=== PATIENT | female | born 1935 | race Caucasian/White ===

== ENCOUNTER 2017-07-08 20:27 | Inpatient (IN) | payer MEDICARE, MEDICAID ==
[~2017-07-08] VITALS: Ht 157.5 cm; Wt 80.3 kg
[2017-07-08] MEDS ORDERED: PREDNISOLO15 MG/5 M1 ORAL (21:01)
[2017-07-08] MEDS ORDERED: JANUVIA25 MG ORAL (21:01)
[2017-07-08] MEDS ORDERED: TAMSULOSIN HCL0.4 MG ORAL (21:01)
[2017-07-08] MEDS ORDERED: TRESIBA FL100 UNIT/1 SQ (21:01)
[2017-07-08] MEDS ORDERED: ALBUTEROL2.5 MG/3 M INH (21:01)
[2017-07-08] MEDS ORDERED: HUMALOG100 UNIT/4 SUBQ (21:01)
[2017-07-08] MEDS ORDERED: BREO ELLIPTA 11 EACH IH (21:01)
[2017-07-08] MEDS ORDERED: CRESTOR20 MG ORAL (21:01)
[2017-07-08] MEDS ORDERED: TORSEMIDE20 MG ORAL (21:01)
[2017-07-08] MEDS ORDERED: SPIRIVA18 MCG INH (21:01)
[2017-07-08] MEDS ORDERED: ELIQUIS2.5 MG PO (21:01)
[2017-07-08] MEDS ORDERED: FOLIC ACID1 MG ORAL (21:01)
--- NOTE | 2017-07-08 21:26 | Emergency Room Report ---
History of Present Illness General Chief Complaint: Generalized Weakness Source: Patient, Family Member Present Illness HPI 82-year-old female history of COPD on 2 L nasal cannula oxygen, diabetes, lower extremity edema that is chronic, presenting with generalized weakness, worsening lower extremity edema, and decrease in appetite. Patient currently oriented 2 and providing some history states that she just does not have an appetite. Denies any worsening shortness of breath and her normal. States her legs have been swollen for a couple months. Denies any fever chills cough no abdominal pain or chest pain Allergies: Coded Allergies: No Known Allergies (Unverified , 07/08/17) Patient History Past Medical History: see triage record Past Surgical History: none Pertinent Family History: none Reviewed Nursing Documentation: PMH: Agreed; PSxH: Agreed Nursing Documentation-PMH Past Medical History: No History, Except For Hx Cardiac Problems: Yes - AT HOME 2l OXYGEN THERAPY Hx Hypertension: Yes Hx COPD: Yes Hx Diabetes: Yes - type 1 Review of Systems All Other Systems: negative except mentioned in HPI Physical Exam Vital Signs Date Time Temp Pulse Resp B/P (MAP) Pulse Ox O2 Delivery O2 Flow Rate FiO2 07/08/17 20:17 98.9 86 16 128/78 94 Nasal Cannula 2.0 99.0 Sp02 EP Interpretation: abnormal General Appearance: mild distress, other - Elderly female, calm and cooperative , conversing appropriately Head: normocephalic, atraumatic Eyes: bilateral eye normal inspection, bilateral eye PERRL, bilateral eye EOMI ENT: normal ENT inspection, normal pharynx, normal voice, moist mucus membranes Neck: normal inspection, full range of motion, supple Respiratory: normal inspection, lungs clear, normal breath sounds, no respiratory distress, no retraction, no wheezing, speaking full sentences, chest symmetrical Cardiovascular #1: normal inspection, regular rate, rhythm, normal capillary refill Cardiovascular #2: 2+ radial (R), 2+ radial (L) Gastrointestinal: normal inspection, non tender, soft, non-distended, no guarding Musculoskeletal: other - No signs of trauma, 2+ pitting edema bilateral lower extremity's, nontender Neurologic: other - Patient is oriented 2 and speaking complete sentences, moving all 4 extremities spontaneously Psychiatric: normal inspection, judgement/insight normal, memory normal Skin: normal inspection, normal color, no rash, warm/dry, well hydrated, normal turgor Medical Decision Making Diagnostic Impression: Primary Impression: Episode of generalized weakness Additional Impressions: Renal failure Troponin level elevated ER Course 82-year-old female with generalized weakness, decrease in appetite DDX: Dehydration, electronic disturbance, pneumonia, UTI, viral illness, ACS Plan: Obtain labs, ua, EKG, CXR ER course: Patient has been monitored during ED stay, HD stable Disposition: Patient is to be admitted to TELE D/W hospitalist Dr Nury celis for Dr Ryan Please note that this Emergency Department Report was dictated using [employer] consultant technology software, occasionally this can lead to erroneous entry secondary to interpretation by the dictation equipment. EKG Diagnostic Results EP Interpretation: Yes Rate: normal Rhythm: NSR ST Segments: No acute changes ASA given to patient: No Rhythm Strip EP Interpretation: Yes Rate: 84 Rhythm: NSR, no PVCs, no ectopy Chest X-ray CXR: Ordered: Yes 1 view Indication: Generalized weakness EP interpretation: Yes Interpretation: mild congestion Impression: mild congestion Electronically signed by Oswald Rader MD Laboratory Tests Test 07/08/17 21:00 White Blood Count 10.5 K/UL (4.8-10.8) Red Blood Count 3.46 M/UL (4.20-5.40) L Hemoglobin 11.0 G/DL (12.0-16.0) L Hematocrit 33.4 % (37.0-47.0) L Mean Corpuscular Volume 96 FL (80-99) Mean Corpuscular Hemoglobin 31.8 PG (27.0-31.0) H Mean Corpuscular Hemoglobin Concent 33.0 G/DL (32.0-36.0) Red Cell Distribution Width 13.2 % (11.6-14.8) Platelet Count 196 K/UL (150-450) Mean Platelet Volume 7.1 FL (6.5-10.1) Neutrophils (%) (Auto) 80.0 % (45.0-75.0) H Lymphocytes (%) (Auto) 10.0 % (20.0-45.0) L Monocytes (%) (Auto) 8.6 % (1.0-10.0) Eosinophils (%) (Auto) 0.9 % (0.0-3.0) Basophils (%) (Auto) 0.6 % (0.0-2.0) Sodium Level 139 MMOL/L (136-145) Potassium Level 4.0 MMOL/L (3.5-5.1) Chloride Level 100 MMOL/L (98-107) Carbon Dioxide Level 35 MMOL/L (21-32) H Anion Gap 4 mmol/L (5-15) L Blood Urea Nitrogen 94 mg/dL (7-18) H Creatinine 3.3 MG/DL (0.55-1.30) H Estimate Glomerular Filtration Rate mL/min (>60) Glucose Level 217 MG/DL (74-106) H Lactic Acid Level 1.50 mmol/L (0.66-2.22) Calcium Level 9.1 MG/DL (8.5-10.1) Total Bilirubin 0.5 MG/DL (0.2-1.0) Aspartate Amino Transferase (AST) 30 U/L (15-37) Alanine Aminotransferase (ALT) 25 U/L (12-78) Alkaline Phosphatase 64 U/L (46-116) Total Creatine Kinase 71 U/L (26-308) Troponin I 0.075 ng/mL (0.000-0.056) Pro-B-Type Natriuretic Peptide 4246 pg/mL (0-125) H Total Protein 6.9 G/DL (6.4-8.2) Albumin 2.7 G/DL (3.4-5.0) L Globulin 4.2 g/dL Albumin/Globulin Ratio 0.6 (1.0-2.7) L Last Vital Signs Date Time Temp Pulse Resp B/P (MAP) Pulse Ox O2 Delivery O2 Flow Rate FiO2 07/08/17 20:17 98.9 86 16 128/78 94 Nasal Cannula 2.0 99.0 Disposition: ADMITTED INPATIENT Condition: Oswald Jessica M.D. Jul 08, 2017 21:26
[2017-07-08 21:47] LABS: BASOPHILS % (AUTO) 0.6 % (0.0-2.0); EOSINOPHILS % (AUTO) 0.9 % (0.0-3.0); HEMATOCRIT 33.4 % (37.0-47.0); MEAN CORPUSCULAR VOLUME 96 FL (80-99); MONOCYTES % (AUTO) 8.6 % (1.0-10.0); PLATELET COUNT 196 K/UL (150-450); RED BLOOD COUNT 3.46 M/UL (4.20-5.40); RED CELL DISTRIBUTION WIDTH 13.2 % (11.6-14.8); WHITE BLOOD COUNT 10.5 K/UL (4.8-10.8)
[2017-07-08 21:59] LABS: ANION GAP 4 mmol/L (5-15); BLOOD UREA NITROGEN 94 mg/dL (7-18); CALCIUM 9.1 MG/DL (8.5-10.1); CARBON DIOXIDE 35 MMOL/L (21-32); CHLORIDE 100 MMOL/L (98-107); CREATININE 3.3 MG/DL (0.55-1.30); SODIUM 139 MMOL/L (136-145)
[2017-07-08 22:09] LABS: ALANINE AMINOTRANSFERASE 25 U/L (12-78); ALBUMIN 2.7 G/DL (3.4-5.0); ALBUMIN/GLOBULIN RATIO 0.6 (1.0-2.7); ALKALINE PHOSPHATASE 64 U/L (46-116); ASPARTATE AMINO TRANSFERASE 30 U/L (15-37); BILIRUBIN,TOTAL 0.5 MG/DL (0.2-1.0); CREATINE KINASE 71 U/L (26-308)
[2017-07-08 22:39] VITALS: BP 106/50
[2017-07-09] VITALS (7 sets, daily range): BP systolic 102–130; BP diastolic 47–97
[2017-07-09] MEDS ORDERED: Hydromorphone 0.5mg/0.5ml inj IVP PRN (02:30)
[2017-07-09] MEDS ORDERED: D5 1/2NS 1,000 ML IV SCH (03:15)
[2017-07-09] MEDS ORDERED: D5NS 1,000 ML IV SCH (03:45)
[2017-07-09 05:12] LABS: APPEARANCE,URINE CLEAR; BILIRUBIN, URINE NEGATIVE (NEGATIVE); COLOR,URINE PALE YELLOW; GLUCOSE, URINE (UA) 4+ (NEGATIVE); KETONES,URINE NEGATIVE (NEGATIVE); LEUKOCYTE ESTERASE ,URINE 1+ (NEGATIVE); NITRITE,URINE NEGATIVE (NEGATIVE); PH,URINE 6 (4.5-8.0); PROTEIN,URINE 2+ (NEGATIVE); UROBILINOGEN,URINE NORMAL MG/DL (0.0-1.0)
[2017-07-09 05:18] LABS: BASOPHILS % (AUTO) 0.4 % (0.0-2.0); EOSINOPHILS % (AUTO) 2.3 % (0.0-3.0); HEMATOCRIT 32.3 % (37.0-47.0); HEMOGLOBIN 10.8 G/DL (12.0-16.0); LYMPHOCYTES % (AUTO) 10.4 % (20.0-45.0); MEAN CORPUSCULAR VOLUME 98 FL (80-99); MONOCYTES % (AUTO) 11.3 % (1.0-10.0); NEUTROPHILS % (AUTO) 75.6 % (45.0-75.0); PLATELET COUNT 190 K/UL (150-450); RED CELL DISTRIBUTION WIDTH 13.2 % (11.6-14.8); WHITE BLOOD COUNT 11.2 K/UL (4.8-10.8)
[2017-07-09 05:23] LABS: ANION GAP 3 mmol/L (5-15); BLOOD UREA NITROGEN 93 mg/dL (7-18); CALCIUM 9.1 MG/DL (8.5-10.1); CARBON DIOXIDE 40 MMOL/L (21-32); CHLORIDE 102 MMOL/L (98-107); CREATININE 3.3 MG/DL (0.55-1.30); POTASSIUM 3.6 MMOL/L (3.5-5.1); SODIUM 145 MMOL/L (136-145)
[2017-07-09] MEDS: sitaGLIPtin 50mg tab ORAL SCH (06:37)
[2017-07-09] MEDS: NovoLOG Insulin Flexpen SUBQ SCH ×4 (07:24→20:52)
[2017-07-09] MEDS ORDERED: Ferrous Gluconate 324 MG TAB ORAL SCH (09:00)
[2017-07-09] MEDS: Metoprolol Tartrate 12.5mg TAB ORAL SCH ×3 (09:00→20:48)
[2017-07-09] MEDS ORDERED: Metoprolol Succinate XL 50mg tab ORAL SCH (09:00)
--- NOTE | 2017-07-09 09:30 | Cardiac Electrophysiology PN ---
Subjective Subjective [id number] Objective Last 24 Hour Vital Signs Date Time Temp Pulse Resp B/P (MAP) Pulse Ox O2 Delivery O2 Flow Rate FiO2 07/09/17 09:20 78 19 97 Nasal Cannula 2.0 28 07/09/17 09:20 78 19 97 Nasal Cannula 2.0 28 07/09/17 04:00 97.0 79 20 120/54 93 Nasal Cannula 2.0 97.0 07/09/17 04:00 78 07/09/17 01:55 97.5 89 20 108/47 94 Nasal Cannula 2.0 97.5 07/09/17 01:35 97.6 70 21 130/97 96 Nasal Cannula 2.0 97.6 07/09/17 00:37 97.6 70 21 130/97 96 Nasal Cannula 2.0 97.6 07/08/17 22:39 97.2 71 22 106/50 94 Nasal Cannula 2.0 97.2 07/08/17 20:17 98.9 86 16 128/78 94 Nasal Cannula 2.0 99.0 Intake and Output 07/08/17 07/09/17 19:00 07:00 Intake Total 240 ml Balance 240 ml Intake IV Total 240 ml # Voids 2 Laboratory Tests Test 07/08/17 21:00 07/09/17 03:30 07/09/17 04:14 White Blood Count 10.5 K/UL (4.8-10.8) 11.2 K/UL (4.8-10.8) H Red Blood Count 3.46 M/UL (4.20-5.40) L 3.30 M/UL (4.20-5.40) L Hemoglobin 11.0 G/DL (12.0-16.0) L 10.8 G/DL (12.0-16.0) L Hematocrit 33.4 % (37.0-47.0) L 32.3 % (37.0-47.0) L Mean Corpuscular Volume 96 FL (80-99) 98 FL (80-99) Mean Corpuscular Hemoglobin 31.8 PG (27.0-31.0) H 32.7 PG (27.0-31.0) H Mean Corpuscular Hemoglobin Concent 33.0 G/DL (32.0-36.0) 33.3 G/DL (32.0-36.0) Red Cell Distribution Width 13.2 % (11.6-14.8) 13.2 % (11.6-14.8) Platelet Count 196 K/UL (150-450) 190 K/UL (150-450) Mean Platelet Volume 7.1 FL (6.5-10.1) 7.1 FL (6.5-10.1) Neutrophils (%) (Auto) 80.0 % (45.0-75.0) H 75.6 % (45.0-75.0) H Lymphocytes (%) (Auto) 10.0 % (20.0-45.0) L 10.4 % (20.0-45.0) L Monocytes (%) (Auto) 8.6 % (1.0-10.0) 11.3 % (1.0-10.0) H Eosinophils (%) (Auto) 0.9 % (0.0-3.0) 2.3 % (0.0-3.0) Basophils (%) (Auto) 0.6 % (0.0-2.0) 0.4 % (0.0-2.0) Sodium Level 139 MMOL/L (136-145) 145 MMOL/L (136-145) Potassium Level 4.0 MMOL/L (3.5-5.1) 3.6 MMOL/L (3.5-5.1) Chloride Level 100 MMOL/L (98-107) 102 MMOL/L (98-107) Carbon Dioxide Level 35 MMOL/L (21-32) H 40 MMOL/L (21-32) H Anion Gap 4 mmol/L (5-15) L 3 mmol/L (5-15) L Blood Urea Nitrogen 94 mg/dL (7-18) H 93 mg/dL (7-18) H Creatinine 3.3 MG/DL (0.55-1.30) H 3.3 MG/DL (0.55-1.30) H Estimat Glomerular Filtration Rate mL/min (>60) mL/min (>60) Glucose Level 217 MG/DL (74-106) H 215 MG/DL (74-106) H Lactic Acid Level 1.50 mmol/L (0.66-2.22) Calcium Level 9.1 MG/DL (8.5-10.1) 9.1 MG/DL (8.5-10.1) Total Bilirubin 0.5 MG/DL (0.2-1.0) Aspartate Amino Transf (AST/SGOT) 30 U/L (15-37) Alanine Aminotransferase (ALT/SGPT) 25 U/L (12-78) Alkaline Phosphatase 64 U/L (46-116) Total Creatine Kinase 71 U/L (26-308) Troponin I 0.075 ng/mL (0.000-0.056) 0.095 ng/mL (0.000-0.056) Pro-B-Type Natriuretic Peptide 4246 pg/mL (0-125) H Total Protein 6.9 G/DL (6.4-8.2) Albumin 2.7 G/DL (3.4-5.0) L Globulin 4.2 g/dL Albumin/Globulin Ratio 0.6 (1.0-2.7) L Urine Color Pale yellow Urine Appearance Clear Urine pH 6 (4.5-8.0) Urine Specific [place] 1.015 (1.005-1.035) Urine Protein 2+ (NEGATIVE) H Urine Glucose (UA) 4+ (NEGATIVE) H Urine Ketones Negative (NEGATIVE) Urine Occult Blood 1+ (NEGATIVE) H Urine Nitrite Negative (NEGATIVE) Urine Bilirubin Negative (NEGATIVE) Urine Urobilinogen Normal MG/DL (0.0-1.0) Urine Leukocyte Esterase 1+ (NEGATIVE) H Urine RBC 0-2 /HPF (0 - 2) Urine WBC 0-2 /HPF (0 - 2) Urine Squamous Epithelial Cells Moderate /LPF (NONE/OCC) H Urine Bacteria Few /HPF (NONE) Microbiology Date/Time Source Procedure Growth Status 07/09/17 01:00 Nasal Nares Influenza Types A,B Antigen (BAM) - Final Complete Srinivasa Sutton MD Jul 09, 2017 09:29
[2017-07-09] MEDS ORDERED: Lexiscan 0.4mg/5ml syringe IV PRN (09:45)
[2017-07-09] MEDS: Vitamin D 1000 IU Tab ORAL SCH (10:09)
[2017-07-09] MEDS: Aspirin Baby 81mg ORAL SCH (10:09)
[2017-07-09] MEDS: Eliquis 2.5mg tablet ORAL SCH ×2 (10:10→17:48)
--- NOTE | 2017-07-09 11:07 | History and Physical ---
History of Present Illness General Date patient seen: Jul 09, 2017 Time patient seen: 11:07 Reason for Hospitalization: Generalized Weakness, swelling Present Illness HPI 82y/o female with pmh of CAD, CHF, HTN, COPD on home O2 (2L via NC), IDDM type 2 , CKD stage 3, h/o DVT (on Eliquis) who presents with generalized weakness and swelling. Pt poor historian. Per caregiver, pt has a decline the past 3 weeks. Pt w/ worsening BLE swelling for the past 2-3 weeks. PCP recently switched from lasix to torsemide abt 2 weeks ago. 1 week ago torsemide dose was increased from 20mg to 40mg daily. Pt also noted to be taking in more fluids than she should given her CHF for the past week. However, lately she has had poor food intake 2/2 poor appetite. Per caregiver, swelling is attributed to Novolog solution?, so her doctors have been attempting to adjust her diabetic medications. She was started on Treciba. Denies f/c, n/v, d/c, chest pain, abd pain, cough. SOB is stable, O2 requirements stable at 2L NC. Yesterday, pt was being transferred to car and it was noted that she had no energy so paramedics were called. Allergies: Coded Allergies: No Known Allergies (Unverified , 07/08/17) Medication History Scheduled Folic Acid* (Folic Acid*), 1 MG ORAL DAILY, (Reported) Rosuvastatin Calcium* (Crestor*), 20 MG ORAL DAILY, (Reported) Sitagliptin* (Januvia*), 50 MG ORAL DAILY, (Reported) Tamsulosin Hcl (Tamsulosin Hcl*), 0.4 MG ORAL BEDTIME, (Reported) Tiotropium Ventress* (Spiriva*), 1 PUFF INH DAILY, (Reported) Torsemide* (Demadex*), 20 MG ORAL DAILY, (Reported) Scheduled PRN Albuterol Sulfate* (Albuterol Sulfate Hhn*), 3 ML INH Q4H PRN for Shortness of Breath, (Reported) Miscellaneous Medications Apixaban (Eliquis), 2.5 MG PO, (Reported) Fluticasone/Vilanterol (Breo Ellipta 100-25 Mcg INH), 1 EACH IH, (Reported) Insulin Degludec (Tresiba Flextouch U-100), 100 UNIT SQ, (Reported) Insulin Lispro (Humalog), 0 SUBQ, (Reported) Prednisolone* (Prelone*), 10 MG ORAL, (Reported) Patient History History Provided By: Patient, Medical Record Healthcare decision maker Resuscitation status Advanced Directive on File Past Medical/Surgical History Past Medical/Surgical History: (1) CKD (chronic kidney disease) (2) DM2 (diabetes mellitus, type 2) (3) CAD (coronary artery disease) (4) CHF (congestive heart failure) (5) COPD on home O2 (6) Chronic respiratory failure with hypoxia (7) Diabetic nephropathy (8) CKD stage 3 Family History Family History: Patient reports no known family medical history. Social History Social History: (1) lives at home with caregiver Review of Systems Constitutional: Reports: weakness Eye: Reports: no symptoms ENT: Reports: no symptoms Respiratory: Reports: no symptoms Cardiovascular: Reports: edema Gastrointestinal: Reports: no symptoms Genitourinary: Reports: no symptoms Musculoskeletal: Reports: no symptoms Skin: Reports: no symptoms Psychiatric: Reports: no symptoms Neurological: Reports: no symptoms Endocrine: Reports: no symptoms Hematologic/Lymphatic: Reports: no symptoms Physical Exam Physical Exam Narrative General: alert, cooperative, no distress, appears stated age Head: normocephalic, without obvious abnormality, atraumatic Eyes: conjunctivae/corneas clear. PERRL, EOM's intact Throat: lips, mucosa, and tongue normal. MMM Neck: supple, symmetrical, trachea midline, and no JVD Lungs: +wheezing b/l Heart: regular rate and rhythm, S1, S2 normal, no murmur, click, rub or gallop Abdomen: soft, non-tender, non-distended, bowel sounds normal Extremities: extremities normal, atraumatic, no cyanosis, 2+ BLE edema Pulses: 2+ and symmetric Skin: skin color, texture, turgor normal; no rashes or lesions Neurologic: grossly normal, no focal deficits Last 24 Hour Vital Signs Date Time Temp Pulse Resp B/P (MAP) Pulse Ox O2 Delivery O2 Flow Rate FiO2 07/09/17 09:20 78 19 97 Nasal Cannula 2.0 28 07/09/17 09:20 78 19 97 Nasal Cannula 2.0 28 07/09/17 09:00 78 120/54 07/09/17 04:00 97.0 79 20 120/54 93 Nasal Cannula 2.0 97.0 07/09/17 04:00 78 07/09/17 01:55 97.5 89 20 108/47 94 Nasal Cannula 2.0 97.5 07/09/17 01:35 97.6 70 21 130/97 96 Nasal Cannula 2.0 97.6 07/09/17 00:37 97.6 70 21 130/97 96 Nasal Cannula 2.0 97.6 07/08/17 22:39 97.2 71 22 106/50 94 Nasal Cannula 2.0 97.2 07/08/17 20:17 98.9 86 16 128/78 94 Nasal Cannula 2.0 99.0 Intake and Output 07/08/17 07/09/17 19:00 07:00 Intake Total 240 ml Balance 240 ml Intake IV Total 240 ml # Voids 2 Laboratory Tests Test 07/08/17 21:00 07/09/17 03:30 07/09/17 04:14 White Blood Count 10.5 K/UL (4.8-10.8) 11.2 K/UL (4.8-10.8) H Red Blood Count 3.46 M/UL (4.20-5.40) L 3.30 M/UL (4.20-5.40) L Hemoglobin 11.0 G/DL (12.0-16.0) L 10.8 G/DL (12.0-16.0) L Hematocrit 33.4 % (37.0-47.0) L 32.3 % (37.0-47.0) L Mean Corpuscular Volume 96 FL (80-99) 98 FL (80-99) Mean Corpuscular Hemoglobin 31.8 PG (27.0-31.0) H 32.7 PG (27.0-31.0) H Mean Corpuscular Hemoglobin Concent 33.0 G/DL (32.0-36.0) 33.3 G/DL (32.0-36.0) Red Cell Distribution Width 13.2 % (11.6-14.8) 13.2 % (11.6-14.8) Platelet Count 196 K/UL (150-450) 190 K/UL (150-450) Mean Platelet Volume 7.1 FL (6.5-10.1) 7.1 FL (6.5-10.1) Neutrophils (%) (Auto) 80.0 % (45.0-75.0) H 75.6 % (45.0-75.0) H Lymphocytes (%) (Auto) 10.0 % (20.0-45.0) L 10.4 % (20.0-45.0) L Monocytes (%) (Auto) 8.6 % (1.0-10.0) 11.3 % (1.0-10.0) H Eosinophils (%) (Auto) 0.9 % (0.0-3.0) 2.3 % (0.0-3.0) Basophils (%) (Auto) 0.6 % (0.0-2.0) 0.4 % (0.0-2.0) Sodium Level 139 MMOL/L (136-145) 145 MMOL/L (136-145) Potassium Level 4.0 MMOL/L (3.5-5.1) 3.6 MMOL/L (3.5-5.1) Chloride Level 100 MMOL/L (98-107) 102 MMOL/L (98-107) Carbon Dioxide Level 35 MMOL/L (21-32) H 40 MMOL/L (21-32) H Anion Gap 4 mmol/L (5-15) L 3 mmol/L (5-15) L Blood Urea Nitrogen 94 mg/dL (7-18) H 93 mg/dL (7-18) H Creatinine 3.3 MG/DL (0.55-1.30) H 3.3 MG/DL (0.55-1.30) H Estimat Glomerular Filtration Rate mL/min (>60) mL/min (>60) Glucose Level 217 MG/DL (74-106) H 215 MG/DL (74-106) H Lactic Acid Level 1.50 mmol/L (0.66-2.22) Calcium Level 9.1 MG/DL (8.5-10.1) 9.1 MG/DL (8.5-10.1) Total Bilirubin 0.5 MG/DL (0.2-1.0) Aspartate Amino Transf (AST/SGOT) 30 U/L (15-37) Alanine Aminotransferase (ALT/SGPT) 25 U/L (12-78) Alkaline Phosphatase 64 U/L (46-116) Total Creatine Kinase 71 U/L (26-308) Troponin I 0.075 ng/mL (0.000-0.056) 0.095 ng/mL (0.000-0.056) Pro-B-Type Natriuretic Peptide 4246 pg/mL (0-125) H Total Protein 6.9 G/DL (6.4-8.2) Albumin 2.7 G/DL (3.4-5.0) L Globulin 4.2 g/dL Albumin/Globulin Ratio 0.6 (1.0-2.7) L Urine Color Pale yellow Urine Appearance Clear Urine pH 6 (4.5-8.0) Urine Specific [place] 1.015 (1.005-1.035) Urine Protein 2+ (NEGATIVE) H Urine Glucose (UA) 4+ (NEGATIVE) H Urine Ketones Negative (NEGATIVE) Urine Occult Blood 1+ (NEGATIVE) H Urine Nitrite Negative (NEGATIVE) Urine Bilirubin Negative (NEGATIVE) Urine Urobilinogen Normal MG/DL (0.0-1.0) Urine Leukocyte Esterase 1+ (NEGATIVE) H Urine RBC 0-2 /HPF (0 - 2) Urine WBC 0-2 /HPF (0 - 2) Urine Squamous Epithelial Cells Moderate /LPF (NONE/OCC) H Urine Bacteria Few /HPF (NONE) Microbiology Date/Time Source Procedure Growth Status 07/09/17 01:00 Nasal Nares Influenza Types A,B Antigen (BAM) - Final Complete Height (Feet): 5 Height (Inches): 2.00 Weight (Pounds): 150 Medications Current Medications Medications (Trade) Dose Ordered Sig/Jennifer Route PRN Reason Start Time Stop Time Status Last Admin Dose Admin Acetaminophen (Tylenol) 650 mg Q6H PRN ORAL Mild Pain/Temp > 100.5 07/09/17 02:30 08/08/17 02:29 Apixaban (Eliquis) 2.5 mg BID ORAL 07/09/17 09:00 08/08/17 08:59 07/09/17 10:10 Aspirin (ASA) 81 mg DAILY ORAL 07/09/17 09:00 08/08/17 08:59 07/09/17 10:09 Atorvastatin Calcium (Lipitor) 10 mg BEDTIME ORAL 07/09/17 21:00 08/08/17 20:59 Calcium Citrate (Gray-Citrate) 950 mg DAILY ORAL 07/09/17 09:00 08/08/17 08:59 07/09/17 10:09 Dextrose (Dextrose 50%) 25 ml STAT PRN IV Hypoglycemia 07/09/17 02:30 08/08/17 02:29 Dextrose (Dextrose 50%) 50 ml STAT PRN IV Hypoglycemia 07/09/17 06:30 08/08/17 02:29 Diphenhydramine HCl (Benadryl) 25 mg Q6H PRN ORAL Itching 07/09/17 02:30 08/08/17 02:29 Ferrous Gluconate (Fergon) 324 mg THREE TIMES A DAY ORAL 07/09/17 09:00 08/08/17 08:59 07/09/17 10:15 Folic Acid (Folate) 1 mg DAILY ORAL 07/09/17 09:00 08/08/17 08:59 07/09/17 10:10 Furosemide (Lasix) 40 mg DAILY IV 07/09/17 09:00 08/08/17 08:59 07/09/17 10:09 Hydromorphone HCl (Dilaudid) 0.5 mg Q4H PRN IVP For Pain 07/09/17 02:30 07/16/17 02:29 Insulin Aspart (NovoLOG) BEFORE MEALS AND HS SUBQ 07/09/17 06:30 08/08/17 06:29 07/09/17 07:24 Metoprolol Tartrate (Lopressor) 12.5 mg Q12HR ORAL 07/09/17 09:00 08/08/17 08:59 Ondansetron HCl (Zofran) 4 mg Q6H PRN IVP Nausea & Vomiting 07/09/17 02:30 08/08/17 02:29 Polyethylene Glycol (Miralax) 17 gm BEDTIME ORAL 07/09/17 21:00 08/08/17 20:59 Prednisone (predniSONE) 10 mg DAILY ORAL 07/09/17 09:00 08/08/17 08:59 07/09/17 10:09 Regadenoson (Lexiscan) 0.4 mg ONCE PRN IV stress test 07/09/17 09:45 07/09/17 23:59 Sitagliptin Phosphate (Januvia) 50 mg ACBREAKFAST ORAL 07/09/17 06:30 08/08/17 06:29 07/09/17 06:37 Tamsulosin HCl (Flomax) 0.4 mg BEDTIME ORAL 07/09/17 21:00 08/08/17 20:59 Tiotropium Ventress (Spiriva Inhaler) 1 puff DAILY INH 07/09/17 09:00 08/08/17 08:59 07/09/17 09:20 Vitamin D (Vitamin D) 1,000 intlu DAILY ORAL 07/09/17 09:00 08/08/17 08:59 07/09/17 10:09 Assessment/Plan Problem List: (1) Generalized weakness ICD Codes: R53.1 - Weakness SNOMED: 98716771 (2) JUDSON on CKD stage 3 (3) Acute on chronic diastolic heart failure ICD Codes: I50.33 - Acute on chronic diastolic (congestive) heart failure SNOMED: 733939636 (4) Elevated troponin ICD Codes: R74.8 - Abnormal levels of other serum enzymes SNOMED: 032175729, 759411090, 142729668 (5) UTI (urinary tract infection) ICD Codes: N39.0 - Urinary tract infection, site not specified SNOMED: 18651985 (6) COPD on home O2 (7) Chronic respiratory failure with hypoxia ICD Codes: J96.11 - Chronic respiratory failure with hypoxia SNOMED: 004457506 (8) DM2 (diabetes mellitus, type 2) ICD Codes: E11.9 - Type 2 diabetes mellitus without complications SNOMED: 34541527 Qualifiers: (9) CAD (coronary artery disease) ICD Codes: I25.10 - Atherosclerotic heart disease of [place] coronary artery without angina pectoris SNOMED: 82726064 (10) Anemia in chronic kidney disease ICD Codes: N18.9 - Chronic kidney disease, unspecified; D63.1 - Anemia in chronic kidney disease SNOMED: 759264864, 357505497 (11) Diabetic nephropathy ICD Codes: E11.21 - Type 2 diabetes mellitus with diabetic nephropathy SNOMED: 33115151, 933053357 (12) H/O deep venous thrombosis ICD Codes: Z86.718 - Personal history of other venous thrombosis and embolism SNOMED: 412628032 Status: stable Assessment/Plan Admit inpt Renal consulted Lasix 40mg IV daily Strict I/O's, daily weights Stoner per renal Check urine studies, renal U/S Hold nephrotoxic meds Empiric ceftriaxone for possible UTI F/u urine cx Cardiology consulted Trend trop Check TTE Endo consulted Check A1C NADER Pulm consulted Cont O2, titrate to SpO2 88-92% Cont home prednisone 10mg daily Duonebs ATC and PRN Cont home meds Pain control, bowel regimen Supportive care DVT Prophylaxis: Eliquis Code Status: Full Hospital Classification Declaration: Based on this initial evaluation, and depending on the patient's clinical course, I anticipate that this patient will require hospitalization for 2-3 days for JUDSON, generalized weakness, and close respiratory/hemodynamic monitoring. Disposition: Once the patient is stable to leave the hospital, I anticipate the patient will likely be discharged to the following environment: home with HH vs SNF I spent 72 minutes on this patient's case, and >50% was dedicated to counseling and/or care coordination. Discussed with patient/family, nursing staff, SW/CM, [ ] regarding clinical status, treatment course, and disposition planning. Time of note may not reflect time of encounter. Bravo Leroy M.D. Jul 09, 2017 11:07
[2017-07-09] MEDS ORDERED: Albuterol/Ipratropium 3ml neb HHN PRN (11:15)
--- NOTE | 2017-07-09 11:44 | Diagnostic Imaging Report ---
Indication: Chest pain Comparison: None A single view chest radiograph was obtained. Findings: Interstitial opacities and pulmonary vascularity are demonstrated. The heart is enlarged. Bones are osteopenic. IMPRESSION: Suspected edema/CHF
--- NOTE | 2017-07-09 12:28 | Consultation ---
Consult Note Consult Note 82-year-old female history of COPD on 2 L nasal cannula oxygen, diabetes, lower extremity edema that is chronic, presenting with generalized weakness, worsening lower extremity edema, and decrease in appetite. Patient currently oriented 2 and providing some history states that she just does not have an appetite. Denies any worsening shortness of breath and her normal. States her legs have been swollen for a couple months. Denies any fever chills cough no abdominal pain or chest pain Past Medical History: No History, Except For Hx Cardiac Problems: Yes - AT HOME 2l OXYGEN THERAPY Hx Hypertension: Yes Hx COPD: Yes Hx Diabetes: Yes - type 1 . Assessment/Plan Renal failure- Know stage 3 CKD since Feb 2016 Diabetic Nephropathy Exacerbation COPD Anemia CHF ?UTI Anemia serenity Stoner 24 H urine studies BP and BS control Echo and [place] pulmonary support LISETH HERNANDEZ Jul 09, 2017 12:28
[2017-07-09] MEDS: Albuterol/Ipratropium 3ml neb HHN SCH ×2 (13:40→20:56)
--- NOTE | 2017-07-09 18:00 | Consultation ---
DATE OF CONSULTATION: 07/09/2017 CARDIOLOGY CONSULTATION CONSULTING PHYSICIAN: Srinivasa Sutton M.D. REFERRING PHYSICIAN: Bj Ryan M.D. REASON FOR CONSULTATION: Lower extremity edema, congestive heart failure, and elevated troponin. HISTORY OF PRESENT ILLNESS: The patient is an 82-year-old lady with history of hypertension, chronic obstructive pulmonary disease, and chronic lower extremity edema, presented to emergency room with generalized weakness and worsening of lower extremity edema. The patient denies any chest pain or shortness of breath. Her initial troponin was elevated and EKG showed nonspecific T-wave abnormalities. The patient was admitted and a Cardiology consultation was obtained for further evaluation and management. PAST MEDICAL HISTORY: 1. Hypertension. 2. Chronic obstructive pulmonary disease, on home oxygen. 3. Diabetes. 4. Chronic lower extremity edema. FAMILY HISTORY: Noncontributory. SOCIAL HISTORY: She lives at home with a caregiver. Does not smoke or drink alcohol. REVIEW OF SYSTEMS: Performed and was negative other than what was mentioned in the history of present illness. PHYSICAL EXAMINATION: VITAL SIGNS: Blood pressure is 120/54, pulse 78, respirations 18, and temperature 97 degrees. HEAD AND NECK: Showed no JVD. LUNGS: Clear. CARDIOVASCULAR: Shows regular S1 and S2 with no gallop or murmur. ABDOMEN: Soft. EXTREMITIES: Bilateral 2+ pitting edema. LABORATORY AND DIAGNOSTIC DATA: Her EKG showed sinus rhythm with occasional PACs and occasional PVCs and old inferior wall infarct. LABORATORY DATA: Labs show sodium 145, potassium 3.6, BUN of 93, creatinine of 3.3, and glucose of 215. Troponin 0.075 and 0.095. BNP is 4246. ASSESSMENT AND PLAN: 1. Troponin leak likely due to renal failure with a creatinine of 3.3. The patient does not have any chest pain. EKG showed nonspecific ST-T wave abnormalities. We will get a stat echocardiogram to evaluate for ejection fraction and wall motion abnormality and continue aspirin, metoprolol 12.5 mg b.i.d. Add Lipitor to her medical regimen. 2. Hypertension. On Lasix 40 mg IV daily and metoprolol 12.5 mg b.i.d. Currently, blood pressure is stable. 3. Diabetes. On insulin. 4. Lower extremity edema. We will get a lower extremity duplex and echocardiogram for further evaluation. Continue Lasix 40 mg IV daily at this time. 5. Renal failure. Creatinine more than 3. 6. The patient is on apixaban 2.5 mg b.i.d. and I am not sure about the indication whether the patient has history of DVT or was for paroxysmal atrial fibrillation, but we will get further information from the family. Thank you very much, Dr. Ryan, for allowing me to participate in the care of this patient. Please do not hesitate to contact me for any questions regarding my evaluation. Srinivasa Sutton M.D. DR: TARA JOB#: [id number] CC:
[2017-07-09] MEDS: Tamsulosin 0.4mg cap ORAL SCH (20:48)
[2017-07-09] MEDS: cefTRIAXone 1 GM in D5W 110 ML IVPB SCH (20:48)
[2017-07-09] MEDS: Miralax 17gm pkt ORAL SCH (20:48)
--- NOTE | 2017-07-09 22:15 | Consultation ---
DATE OF CONSULTATION: 07/09/2017 HEMATOLOGY/ONCOLOGY CONSULTATION CONSULTING PHYSICIAN: Festus Romero M.D. REQUESTING PHYSICIAN: Bj Ryan M.D. and Bravo Leroy M.D. IDENTIFYING DATA: Dear Dr. Ryan and Dr. Cordon, The patient is a pleasant 82-year-old female with a past medical history significant for COPD, has been on 2 liters of oxygen at home, that has been a chronic issue, exacerbation at presentation at this time, anemia, renal failure, CKD stage 3, as well as leukocytosis at the present moment, presents to the [facility] on 2 liters nasal cannula, presents with weakness, fatigue, and lower extremity edema, decreased appetite, A and O x2, chronic . Denies fever, chills, night sweats, hematochezia, hematemesis, or other systemic symptoms noted. Hematology Service consulted given ongoing anemia. PAST MEDICAL HISTORY: As noted above. PAST SURGICAL HISTORY: None noted. ALLERGIES: No known drug allergies. REVIEW OF SYSTEMS: CONSTITUTIONAL: No fevers, chills, or night sweats. SKIN: No rashes, bumps, or itching. HEENT: No headache, hearing or vision changes. BREASTS: No lumps, pain, or discharge. PULMONARY: No cough, sputum, or shortness of breath. GASTROINTESTINAL: No nausea, vomiting, or diarrhea. GENITOURINARY: No dysuria, frequency, or urgency. MUSCULOSKELETAL: No joint swelling, muscle pain, or trauma. LABORATORY AND DIAGNOSTIC DATA: WBC 12.8, hemoglobin 10.9, hematocrit 32, platelet count 190,000. Imaging reviewed. Chest x-ray reviewed, significant for edema and CHF. ASSESSMENT AND RECOMMENDATIONS: 1. Anemia due to underlying chronic disease. Continue to closely monitor. Anemia workup has been ordered, potentially secondary to hemodilution. 2. Leukocytosis, potentially secondary to reactive process versus underlying infection. steroids as well. 3. Pneumonia, is on broad-spectrum antibiotics. Continue to closely monitor. 4. Dehydration, currently receiving IV fluids as needed per primary team. 5. Troponin elevation, to be seen by Cardiology Service. 6. Acute kidney injury with creatinine of 3.3, to be seen by Dr. Asencio of Nephrology Service. We do not have the patient's baseline. I appreciate the consultation. Festus Romero M.D. DR: [place] JOB#: [id number] CC:
--- NOTE | 2017-07-09 22:50 | Consultation ---
History of Present Illness General Date patient seen: Jul 09, 2017 Chief Complaint: Generalized Weakness Present Illness HPI 82-year-old lady with history of hypertension, chronic obstructive pulmonary disease, and chronic lower extremity edema, presented to emergency room with generalized weakness and poor appetite Allergies: Coded Allergies: No Known Allergies (Unverified , 07/08/17) Medication History Scheduled Cephalexin (Keflex), 250 MG PO Q12HR Folic Acid* (Folic Acid*), 1 MG ORAL DAILY, (Reported) Rosuvastatin Calcium* (Crestor*), 20 MG ORAL DAILY, (Reported) Sitagliptin* (Januvia*), 50 MG ORAL DAILY, (Reported) Tamsulosin Hcl (Tamsulosin Hcl*), 0.4 MG ORAL BEDTIME, (Reported) Tiotropium [place]* (Spiriva*), 1 PUFF INH DAILY, (Reported) Torsemide* (Demadex*), 20 MG ORAL DAILY, (Reported) Scheduled PRN Albuterol Sulfate* (Albuterol Sulfate Hhn*), 3 ML INH Q4H PRN for Shortness of Breath, (Reported) Miscellaneous Medications Apixaban (Eliquis), 2.5 MG PO, (Reported) Fluticasone/Vilanterol (Breo Ellipta 100-25 Mcg INH), 1 EACH IH, (Reported) Insulin Degludec (Tresiba Flextouch U-100), 100 UNIT SQ, (Reported) Insulin Lispro (Humalog), 0 SUBQ, (Reported) Prednisolone* (Prelone*), 10 MG ORAL, (Reported) Patient History History Provided By: Patient, Medical Record, PMD Healthcare decision maker Resuscitation status Advanced Directive on File Review of Systems Psychiatric: Reports: prior hx, anxiety, depressed feelings, emotional problems Physical Exam General Appearance: no apparent distress, alert Neurologic: oriented x 3, depressed affect Last 24 Hour Vital Signs Date Time Temp Pulse Resp B/P (MAP) Pulse Ox O2 Delivery O2 Flow Rate FiO2 07/09/17 21:06 79 20 97 Nasal Cannula 4.0 36 07/09/17 20:56 81 21 91 Nasal Cannula 2.0 28 07/09/17 20:56 91 Nasal Cannula 2.0 28 07/09/17 20:56 Nasal Cannula 4.0 36 07/09/17 20:48 79 102/47 07/09/17 20:00 98.2 79 20 102/47 82 Nasal Cannula 2.0 98.2 07/09/17 16:00 97.5 89 20 111/56 90 Nasal Cannula 2.0 97.5 07/09/17 16:00 99 07/09/17 13:51 68 18 98 Nasal Cannula 2.0 28 07/09/17 13:41 67 16 93 Nasal Cannula 2.0 28 07/09/17 13:35 67 16 Nasal Cannula 2.0 28 07/09/17 12:00 97.5 83 21 128/53 91 Nasal Cannula 2.0 97.5 07/09/17 12:00 91 07/09/17 09:20 Nasal Cannula 2.0 28 07/09/17 09:20 78 19 97 Nasal Cannula 2.0 28 07/09/17 09:20 96 Nasal Cannula 2.0 28 07/09/17 09:20 78 19 97 Nasal Cannula 2.0 28 07/09/17 09:00 78 120/54 07/09/17 08:00 82 07/09/17 08:00 97.0 80 22 116/68 93 Nasal Cannula 2.0 97.0 07/09/17 04:00 97.0 79 20 120/54 93 Nasal Cannula 2.0 97.0 07/09/17 04:00 78 07/09/17 01:55 97.5 89 20 108/47 94 Nasal Cannula 2.0 97.5 07/09/17 01:35 97.6 70 21 130/97 96 Nasal Cannula 2.0 97.6 07/09/17 00:37 97.6 70 21 130/97 96 Nasal Cannula 2.0 97.6 Intake and Output 07/08/17 07/09/17 19:00 07:00 Intake Total 240 ml Balance 240 ml IV Total 240 ml # Voids 2 Laboratory Tests Test 07/09/17 03:30 07/09/17 04:14 07/09/17 12:02 07/09/17 13:30 White Blood Count 11.2 K/UL (4.8-10.8) H Red Blood Count 3.30 M/UL (4.20-5.40) L Hemoglobin 10.8 G/DL (12.0-16.0) L Hematocrit 32.3 % (37.0-47.0) L Mean Corpuscular Volume 98 FL (80-99) Mean Corpuscular Hemoglobin 32.7 PG (27.0-31.0) H Mean Corpuscular Hemoglobin Concent 33.3 G/DL (32.0-36.0) Red Cell Distribution Width 13.2 % (11.6-14.8) Platelet Count 190 K/UL (150-450) Mean Platelet Volume 7.1 FL (6.5-10.1) Neutrophils (%) (Auto) 75.6 % (45.0-75.0) H Lymphocytes (%) (Auto) 10.4 % (20.0-45.0) L Monocytes (%) (Auto) 11.3 % (1.0-10.0) H Eosinophils (%) (Auto) 2.3 % (0.0-3.0) Basophils (%) (Auto) 0.4 % (0.0-2.0) Differential Total Cells Counted 100 Neutrophils % (Manual) 76 % (45-75) H Lymphocytes % (Manual) 12 % (20-45) L Monocytes % (Manual) 9 % (1-10) Eosinophils % (Manual) 3 % (0-3) Basophils % (Manual) 0 % (0-2) Band Neutrophils 0 % (0-8) Platelet Estimate Adequate Platelet Morphology Normal Sodium Level 145 MMOL/L (136-145) Potassium Level 3.6 MMOL/L (3.5-5.1) Chloride Level 102 MMOL/L (98-107) Carbon Dioxide Level 40 MMOL/L (21-32) H Anion Gap 3 mmol/L (5-15) L Blood Urea Nitrogen 93 mg/dL (7-18) H Creatinine 3.3 MG/DL (0.55-1.30) H Estimat Glomerular Filtration Rate mL/min (>60) Glucose Level 215 MG/DL (74-106) H Calcium Level 9.1 MG/DL (8.5-10.1) Troponin I 0.095 ng/mL (0.000-0.056) 0.101 ng/mL (0.000-0.056) Urine Color Pale yellow Urine Appearance Clear Urine pH 6 (4.5-8.0) Urine Specific [place] 1.015 (1.005-1.035) Urine Protein 2+ (NEGATIVE) H Urine Glucose (UA) 4+ (NEGATIVE) H Urine Ketones Negative (NEGATIVE) Urine Occult Blood 1+ (NEGATIVE) H Urine Nitrite Negative (NEGATIVE) Urine Bilirubin Negative (NEGATIVE) Urine Urobilinogen Normal MG/DL (0.0-1.0) Urine Leukocyte Esterase 1+ (NEGATIVE) H Urine RBC 0-2 /HPF (0 - 2) Urine WBC 0-2 /HPF (0 - 2) Urine Squamous Epithelial Cells Moderate /LPF (NONE/OCC) H Urine Bacteria Few /HPF (NONE) Lactate Dehydrogenase 277 U/L (81-234) H C-Reactive Protein, Quantitative 2.6 mg/dL (0.00-0.90) H Folate 43.9 NG/ML (8.6-58.9) Prothrombin Time 10.7 SEC (9.30-11.50) Prothromb Time International Ratio 1.0 (0.9-1.1) Fibrinogen 516 mg/dL (200-400) H Microbiology Date/Time Source Procedure Growth Status 07/09/17 01:00 Nasal Nares Influenza Types A,B Antigen (BAM) - Final Complete Height (Feet): 5 Height (Inches): 2.00 Weight (Pounds): 150 Medications Current Medications Medications (Trade) Dose Ordered Sig/Jennifer Route PRN Reason Start Time Stop Time Status Last Admin Dose Admin Acetaminophen (Tylenol) 650 mg Q6H PRN ORAL Mild Pain/Temp > 100.5 07/09/17 02:30 08/08/17 02:29 Albuterol/ Ipratropium (Albuterol/ Ipratropium) 3 ml Q4H PRN HHN Shortness of Breath 07/09/17 11:15 07/14/17 11:14 Albuterol/ Ipratropium (Albuterol/ Ipratropium) 3 ml Q6HRT HHN 07/09/17 13:00 07/14/17 12:59 07/09/17 20:56 Apixaban (Eliquis) 2.5 mg BID ORAL 07/09/17 09:00 08/08/17 08:59 07/09/17 10:10 Aspirin (ASA) 81 mg DAILY ORAL 07/09/17 09:00 08/08/17 08:59 07/09/17 10:09 Atorvastatin Calcium (Lipitor) 10 mg BEDTIME ORAL 07/09/17 21:00 08/08/17 20:59 07/09/17 20:48 Ceftriaxone Sodium 1 gm/ Dextrose 110 ml @ 220 mls/hr Q24H IVPB 07/09/17 20:00 07/16/17 19:59 07/09/17 20:48 Dextrose (Dextrose 50%) 25 ml STAT PRN IV Hypoglycemia 07/09/17 02:30 08/08/17 02:29 Dextrose (Dextrose 50%) 50 ml STAT PRN IV Hypoglycemia 07/09/17 06:30 08/08/17 02:29 Diphenhydramine HCl (Benadryl) 25 mg Q6H PRN ORAL Itching 07/09/17 02:30 08/08/17 02:29 Furosemide (Lasix) 40 mg DAILY IV 07/09/17 09:00 08/08/17 08:59 07/09/17 10:09 Hydromorphone HCl (Dilaudid) 0.5 mg Q4H PRN IVP pain 4-10 07/09/17 12:45 07/16/17 02:29 07/09/17 12:51 Insulin Aspart (NovoLOG) BEFORE MEALS AND HS SUBQ 07/09/17 06:30 08/08/17 06:29 07/09/17 20:52 Metoprolol Tartrate (Lopressor) 12.5 mg Q12HR ORAL 07/09/17 09:00 08/08/17 08:59 07/09/17 20:48 Ondansetron HCl (Zofran) 4 mg Q6H PRN IVP Nausea & Vomiting 07/09/17 02:30 08/08/17 02:29 Polyethylene Glycol (Miralax) 17 gm BEDTIME ORAL 07/09/17 21:00 08/08/17 20:59 07/09/17 20:48 Prednisone (predniSONE) 10 mg DAILY ORAL 07/09/17 09:00 08/08/17 08:59 07/09/17 10:09 Regadenoson (Lexiscan) 0.4 mg ONCE PRN IV stress test 07/09/17 09:45 07/09/17 23:59 Sitagliptin Phosphate (Januvia) 50 mg ACBREAKFAST ORAL 07/09/17 06:30 08/08/17 06:29 07/09/17 06:37 Tamsulosin HCl (Flomax) 0.4 mg BEDTIME ORAL 07/09/17 21:00 08/08/17 20:59 07/09/17 20:48 Tiotropium [place] (Spiriva Inhaler) 1 puff DAILY INH 07/09/17 09:00 08/08/17 08:59 07/09/17 09:20 Vitamin D (Vitamin D) 1,000 intlu DAILY ORAL 07/09/17 09:00 08/08/17 08:59 07/09/17 10:09 Assessment/Plan Assessment/Plan mdd anxiety cont surrent Ricci Gonzalez M.D. Jul 09, 2017 22:50
[2017-07-10] VITALS: BP 106/56
[2017-07-10] MEDS: Albuterol/Ipratropium 3ml neb HHN SCH ×4 (02:28→20:54)
[2017-07-10 04:00] VITALS: BP 105/56
[2017-07-10] MEDS: sitaGLIPtin 50mg tab ORAL SCH (05:59)
[2017-07-10] MEDS: NovoLOG Insulin Flexpen SUBQ SCH ×4 (06:21→20:41)
[2017-07-10 08:11] LABS: BASOPHILS % (AUTO) 0.4 % (0.0-2.0); EOSINOPHILS % (AUTO) 2.9 % (0.0-3.0); HEMATOCRIT 33.1 % (37.0-47.0); HEMOGLOBIN 10.8 G/DL (12.0-16.0); LYMPHOCYTES % (AUTO) 11.9 % (20.0-45.0); MEAN CORPUSCULAR VOLUME 98 FL (80-99); MONOCYTES % (AUTO) 11.4 % (1.0-10.0); NEUTROPHILS % (AUTO) 73.4 % (45.0-75.0); PLATELET COUNT 199 K/UL (150-450); RED BLOOD COUNT 3.39 M/UL (4.20-5.40); RED CELL DISTRIBUTION WIDTH 13.1 % (11.6-14.8); WHITE BLOOD COUNT 11.5 K/UL (4.8-10.8)
--- NOTE | 2017-07-10 08:34 | Diagnostic Imaging Report ---
Indication: Acute renal failure Technique: Grayscale and duplex images of the kidneys, retroperitoneum, and bladder were obtained. Comparison: none Findings: Right kidney measures 10.1 cm in length. Left kidney measures 8.2 cm in length. Left kidney demonstrates increased echogenicity. There is mild hydronephrosis on the right. No hydronephrosis on the left. There are bilateral renal cysts. Normal inferior vena cava. Bladder is distended. Patient reportedly has a Stoner catheter, Stoner balloon is not visible within the bladder lumen. The calculated bladder volume is 837 mm. Impression: 837 mL bladder volume. Stoner catheter reportedly present, but the latter is not visible, catheter presumably malpositioned. Increased left renal echogenicity, consistent with medical renal disease Mild right hydronephrosis, possibly but not definitively related to the lack of bladder emptying Incidental finding bilateral renal cysts.
[2017-07-10 08:45] LABS: % IRON SATURATION 24 % (15-50); IRON 55 ug/dL (50-175); TOTAL IRON BINDING CAPACITY 230 ug/dL (250-450)
[2017-07-10 08:54] LABS: CHOLESTEROL 120 MG/DL (< 200); GAMMA GLUTAMYL TRANSPEPTIDASE 24 U/L (5-85); HDL CHOLESTEROL 57 MG/DL (40-60); TRIGLYCERIDES 72 MG/DL (30-150)
[2017-07-10] MEDS: Metoprolol Tartrate 12.5mg TAB ORAL SCH ×3 (09:00→21:13)
[2017-07-10 09:07] LABS: ALANINE AMINOTRANSFERASE 25 U/L (12-78); ALBUMIN 2.6 G/DL (3.4-5.0); ALBUMIN/GLOBULIN RATIO 0.6 (1.0-2.7); ALKALINE PHOSPHATASE 63 U/L (46-116); ANION GAP 7 mmol/L (5-15); ASPARTATE AMINO TRANSFERASE 33 U/L (15-37); BILIRUBIN,TOTAL 0.5 MG/DL (0.2-1.0); BLOOD UREA NITROGEN 76 mg/dL (7-18); CALCIUM 9.7 MG/DL (8.5-10.1); CARBON DIOXIDE 36 MMOL/L (21-32); CHLORIDE 102 MMOL/L (98-107); CREATININE 2.7 MG/DL (0.55-1.30); FERRITIN 474 NG/ML (8-388); PHOSPHORUS 5.3 MG/DL (2.5-4.9); POTASSIUM 3.9 MMOL/L (3.5-5.1); SODIUM 145 MMOL/L (136-145)
[2017-07-10] MEDS: Eliquis 2.5mg tablet ORAL SCH ×2 (09:56→18:21)
[2017-07-10] MEDS: Vitamin D 1000 IU Tab ORAL SCH (09:56)
[2017-07-10] MEDS: Aspirin Baby 81mg ORAL SCH (09:56)
[2017-07-10] MEDS ORDERED: Tubing IV Secondary IV ONE (10:19)
[2017-07-10] MEDS ORDERED: NS 275ml ONE (10:19)
[2017-07-10] MEDS ORDERED: D5NS 1000ml IV ONE (10:19)
[2017-07-10] MEDS ORDERED: LORazepam 1mg tab ORAL PRN (11:00)
--- NOTE | 2017-07-10 12:49 | Nephrology Progress Note ---
Assessment/Plan Problem List: (1) CKD (chronic kidney disease) (2) COPD on home O2 (3) Anemia in chronic kidney disease (4) Elevated troponin I level Assessment Renal failure- Know stage 3 CKD since Feb 2016- Cr lower after payne Diabetic Nephropathy Exacerbation COPD Anemia CHF ?UTI Plan Anemia benton Payne in 24 H urine studies BP and BS control Echo and [place] results noted pulmonary support Cardiac support ASA , Nitro [place] Impression: 837 mL bladder volume. Payne catheter reportedly present, but the latter is not visible, catheter presumably malpositioned. Increased left renal echogenicity, consistent with medical renal disease Mild right hydronephrosis, possibly but not definitively related to the lack of bladder emptying Incidental finding bilateral renal cysts. Subjective ROS Limited/Unobtainable: No Constitutional: Reports: malaise Objective Objective Last 24 Hour Vital Signs Date Time Temp Pulse Resp B/P (MAP) Pulse Ox O2 Delivery O2 Flow Rate FiO2 07/10/17 09:39 Nasal Cannula 07/10/17 09:39 Nasal Cannula 07/10/17 08:01 75 20 97 Nasal Cannula 4.0 36 07/10/17 07:53 85 Nasal Cannula 4.0 36 07/10/17 07:53 85 18 94 Nasal Cannula 4.0 36 07/10/17 07:53 Nasal Cannula 4.0 36 07/10/17 04:00 70 07/10/17 04:00 98.1 74 20 105/56 92 Nasal Cannula 4.0 98.1 07/10/17 02:28 Nasal Cannula 2.0 28 07/10/17 02:28 Nasal Cannula 2.0 28 07/10/17 00:00 98.2 68 20 106/56 94 Nasal Cannula 2.0 98.2 07/10/17 00:00 78 07/09/17 21:06 79 20 97 Nasal Cannula 4.0 36 07/09/17 20:56 81 21 91 Nasal Cannula 2.0 28 07/09/17 20:56 91 Nasal Cannula 2.0 28 07/09/17 20:56 Nasal Cannula 4.0 36 07/09/17 20:48 79 102/47 07/09/17 20:00 98.2 79 20 102/47 82 Nasal Cannula 2.0 98.2 07/09/17 20:00 87 07/09/17 16:00 97.5 89 20 111/56 90 Nasal Cannula 2.0 97.5 07/09/17 16:00 99 07/09/17 13:51 68 18 98 Nasal Cannula 2.0 28 07/09/17 13:41 67 16 93 Nasal Cannula 2.0 28 07/09/17 13:35 67 16 Nasal Cannula 2.0 28 Intake and Output 07/09/17 07/10/17 19:00 07:00 Intake Total 200 ml Output Total 50 ml Balance 200 ml -50 ml Intake Oral 200 ml Output Urine Total 50 ml Laboratory Tests 07/09/17 13:30: Prothrombin Time 10.7, Prothromb Time International Ratio 1.0, Fibrinogen 516H 07/10/17 07:15: White Blood Count 11.5H, Red Blood Count 3.39L, Hemoglobin 10.8L, Hematocrit 33.1L, Mean Corpuscular Volume 98, Mean Corpuscular Hemoglobin 31.9H, Mean Corpuscular Hemoglobin Concent 32.6, Red Cell Distribution Width 13.1, Platelet Count 199, Mean Platelet Volume 7.4, Neutrophils (%) (Auto) 73.4, Lymphocytes (% ) (Auto) 11.9L, Monocytes (%) (Auto) 11.4H, Eosinophils (%) (Auto) 2.9, Basophils (%) (Auto) 0.4, Sodium Level 145, Potassium Level 3.9, Chloride Level 102, Carbon Dioxide Level 36H, Anion Gap 7, Blood Urea Nitrogen 76H, Creatinine 2.7H, Estimat Glomerular Filtration Rate , Glucose Level 100#, Hemoglobin A1c 6.9H, Uric Acid 9.3H, Calcium Level 9.7, Phosphorus Level 5.3H, Magnesium Level 2.8H, Iron Level 55, Total Iron Binding Capacity 230L, Percent Iron Saturation 24, Unsaturated Iron Binding 175, Ferritin 474H, Total Bilirubin 0.5, Gamma Glutamyl Transpeptidase 24, Aspartate Amino Transf (AST/SGOT) 33, Alanine Aminotransferase (ALT/SGPT) 25, Alkaline Phosphatase 63, Troponin I 2.266H, Pro- B-Type Natriuretic Peptide 5435H, Total Protein 6.9, Albumin 2.6L, Globulin 4.3 , Albumin/Globulin Ratio 0.6L, Triglycerides Level 72, Cholesterol Level 120, LDL Cholesterol 55, HDL Cholesterol 57, Cholesterol/HDL Ratio 2.1L, Vitamin B12 Level 1210H, Thyroid Stimulating Hormone (TSH) 1.869 Height (Feet): 5 Height (Inches): 2.00 Weight (Pounds): 150 General Appearance: no apparent distress Respiratory/Chest: decreased breath sounds Abdomen: soft Extremities: other - edema LISETH HERNANDEZ Jul 10, 2017 12:49
[2017-07-10] MEDS: Nitroglycerin Patch 0.4mg TDERMAL SCH (13:00)
[2017-07-10] MEDS ORDERED: Metoprolol Tartrate 12.5mg TAB ORAL ONE (13:00)
--- NOTE | 2017-07-10 13:19 | General Progress Note ---
Assessment/Plan Assessment/Plan mdd anxiety prozac 20mg qam ativan prn Subjective Date patient seen: Jul 10, 2017 Neurologic/Psychiatric: Reports: anxiety, depressed, emotional problems Allergies: Coded Allergies: No Known Allergies (Unverified , 07/08/17) Subjective the pt wearing her sun glasses and scrarf again, the pt is anxious and refused iv access. Objective Last 24 Hour Vital Signs Date Time Temp Pulse Resp B/P (MAP) Pulse Ox O2 Delivery O2 Flow Rate FiO2 07/10/17 09:39 Nasal Cannula 07/10/17 09:39 Nasal Cannula 07/10/17 08:01 75 20 97 Nasal Cannula 4.0 36 07/10/17 07:53 85 Nasal Cannula 4.0 36 07/10/17 07:53 85 18 94 Nasal Cannula 4.0 36 07/10/17 07:53 Nasal Cannula 4.0 36 07/10/17 04:00 70 07/10/17 04:00 98.1 74 20 105/56 92 Nasal Cannula 4.0 98.1 07/10/17 02:28 Nasal Cannula 2.0 28 07/10/17 02:28 Nasal Cannula 2.0 28 07/10/17 00:00 98.2 68 20 106/56 94 Nasal Cannula 2.0 98.2 07/10/17 00:00 78 07/09/17 21:06 79 20 97 Nasal Cannula 4.0 36 07/09/17 20:56 81 21 91 Nasal Cannula 2.0 28 07/09/17 20:56 91 Nasal Cannula 2.0 28 07/09/17 20:56 Nasal Cannula 4.0 36 07/09/17 20:48 79 102/47 07/09/17 20:00 98.2 79 20 102/47 82 Nasal Cannula 2.0 98.2 07/09/17 20:00 87 07/09/17 16:00 97.5 89 20 111/56 90 Nasal Cannula 2.0 97.5 07/09/17 16:00 99 07/09/17 13:51 68 18 98 Nasal Cannula 2.0 28 07/09/17 13:41 67 16 93 Nasal Cannula 2.0 28 07/09/17 13:35 67 16 Nasal Cannula 2.0 28 Intake and Output 07/09/17 07/10/17 19:00 07:00 Intake Total 200 ml Output Total 50 ml Balance 200 ml -50 ml Intake Oral 200 ml Output Urine Total 50 ml Laboratory Tests 07/09/17 13:30: Prothrombin Time 10.7, Prothromb Time International Ratio 1.0, Fibrinogen 516H 07/10/17 07:15: White Blood Count 11.5H, Red Blood Count 3.39L, Hemoglobin 10.8L, Hematocrit 33.1L, Mean Corpuscular Volume 98, Mean Corpuscular Hemoglobin 31.9H, Mean Corpuscular Hemoglobin Concent 32.6, Red Cell Distribution Width 13.1, Platelet Count 199, Mean Platelet Volume 7.4, Neutrophils (%) (Auto) 73.4, Lymphocytes (% ) (Auto) 11.9L, Monocytes (%) (Auto) 11.4H, Eosinophils (%) (Auto) 2.9, Basophils (%) (Auto) 0.4, Sodium Level 145, Potassium Level 3.9, Chloride Level 102, Carbon Dioxide Level 36H, Anion Gap 7, Blood Urea Nitrogen 76H, Creatinine 2.7H, Estimat Glomerular Filtration Rate , Glucose Level 100#, Hemoglobin A1c 6.9H, Uric Acid 9.3H, Calcium Level 9.7, Phosphorus Level 5.3H, Magnesium Level 2.8H, Iron Level 55, Total Iron Binding Capacity 230L, Percent Iron Saturation 24, Unsaturated Iron Binding 175, Ferritin 474H, Total Bilirubin 0.5, Gamma Glutamyl Transpeptidase 24, Aspartate Amino Transf (AST/SGOT) 33, Alanine Aminotransferase (ALT/SGPT) 25, Alkaline Phosphatase 63, Troponin I 2.266H, C- Reactive Protein, Quantitative [Pending], Pro-B-Type Natriuretic Peptide 5435H, Total Protein 6.9, Albumin 2.6L, Globulin 4.3, Albumin/Globulin Ratio 0.6L, Triglycerides Level 72, Cholesterol Level 120, LDL Cholesterol 55, HDL Cholesterol 57, Cholesterol/HDL Ratio 2.1L, Vitamin B12 Level 1210H, Thyroid Stimulating Hormone (TSH) 1.869 Height (Feet): 5 Height (Inches): 2.00 Weight (Pounds): 150 General Appearance: no apparent distress, alert Neurologic: oriented x 3, responsive, depressed affect Ricci Kirby M.D. Jul 10, 2017 13:19
--- NOTE | 2017-07-10 15:10 | Cardiac Electrophysiology PN ---
Assessment/Plan Assessment/Plan 1. Troponin leak 0.1 and 0.1 and 2.2 likely due to renal failure with a creatinine of 3.3. The patient does not have any chest pain. EKG showed nonspecific ST-T wave abnormalities. Echocardiogram showed Nl EF. Continue aspirin, metoprolol 12.5 mg b.i.d and Lipitor. Repeat troponins and if no signific change will proceed with stress test. 2. Hypertension. On Lasix 40 mg IV daily and metoprolol 12.5 mg b.i.d. 3. Diabetes. On insulin. 4. Lower extremity edema. Lower extremity duplex no DVT. Continue Lasix 40 mg IV daily. 5. Renal failure. Creatinine more than 3. 6. 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 7. Psych Follow up Dr Kofi CUNNINGHAM RN Subjective Subjective Alert in NAD. No chest pain or SOB. Stress test cancelled as troponin was rising. Objective Last 24 Hour Vital Signs Date Time Temp Pulse Resp B/P (MAP) Pulse Ox O2 Delivery O2 Flow Rate FiO2 07/10/17 13:26 79 20 97 Nasal Cannula 4.0 36 07/10/17 13:19 89 18 93 Nasal Cannula 4.0 36 07/10/17 12:00 84 07/10/17 09:39 Nasal Cannula 07/10/17 09:39 Nasal Cannula 07/10/17 08:01 75 20 97 Nasal Cannula 4.0 36 07/10/17 08:00 77 07/10/17 07:53 85 Nasal Cannula 4.0 36 07/10/17 07:53 85 18 94 Nasal Cannula 4.0 36 07/10/17 07:53 Nasal Cannula 4.0 36 07/10/17 04:00 70 07/10/17 04:00 98.1 74 20 105/56 92 Nasal Cannula 4.0 98.1 07/10/17 02:28 Nasal Cannula 2.0 28 07/10/17 02:28 Nasal Cannula 2.0 28 07/10/17 00:00 98.2 68 20 106/56 94 Nasal Cannula 2.0 98.2 07/10/17 00:00 78 07/09/17 21:06 79 20 97 Nasal Cannula 4.0 36 07/09/17 20:56 81 21 91 Nasal Cannula 2.0 28 4/12/18 20:56 91 Nasal Cannula 2.0 28 07/09/17 20:56 Nasal Cannula 4.0 36 07/09/17 20:48 79 102/47 07/09/17 20:00 98.2 79 20 102/47 82 Nasal Cannula 2.0 98.2 07/09/17 20:00 87 07/09/17 16:00 97.5 89 20 111/56 90 Nasal Cannula 2.0 97.5 07/09/17 16:00 99 Intake and Output 07/09/17 07/10/17 19:00 07:00 Intake Total 200 ml Output Total 50 ml Balance 200 ml -50 ml Intake Oral 200 ml Output Urine Total 50 ml Laboratory Tests Test 07/10/17 07:15 White Blood Count 11.5 K/UL (4.8-10.8) H Red Blood Count 3.39 M/UL (4.20-5.40) L Hemoglobin 10.8 G/DL (12.0-16.0) L Hematocrit 33.1 % (37.0-47.0) L Mean Corpuscular Volume 98 FL (80-99) Mean Corpuscular Hemoglobin 31.9 PG (27.0-31.0) H Mean Corpuscular Hemoglobin Concent 32.6 G/DL (32.0-36.0) Red Cell Distribution Width 13.1 % (11.6-14.8) Platelet Count 199 K/UL (150-450) Mean Platelet Volume 7.4 FL (6.5-10.1) Neutrophils (%) (Auto) 73.4 % (45.0-75.0) Lymphocytes (%) (Auto) 11.9 % (20.0-45.0) L Monocytes (%) (Auto) 11.4 % (1.0-10.0) H Eosinophils (%) (Auto) 2.9 % (0.0-3.0) Basophils (%) (Auto) 0.4 % (0.0-2.0) Sodium Level 145 MMOL/L (136-145) Potassium Level 3.9 MMOL/L (3.5-5.1) Chloride Level 102 MMOL/L (98-107) Carbon Dioxide Level 36 MMOL/L (21-32) H Anion Gap 7 mmol/L (5-15) Blood Urea Nitrogen 76 mg/dL (7-18) H Creatinine 2.7 MG/DL (0.55-1.30) H Estimat Glomerular Filtration Rate mL/min (>60) Glucose Level 100 MG/DL (74-106) # Hemoglobin A1c 6.9 % (4.3-6.0) H Uric Acid 9.3 MG/DL (2.6-7.2) H Calcium Level 9.7 MG/DL (8.5-10.1) Phosphorus Level 5.3 MG/DL (2.5-4.9) H Magnesium Level 2.8 MG/DL (1.8-2.4) H Iron Level 55 ug/dL (50-175) Total Iron Binding Capacity 230 ug/dL (250-450) L Percent Iron Saturation 24 % (15-50) Unsaturated Iron Binding 175 ug/dL (112-346) Ferritin 474 NG/ML (8-388) H Total Bilirubin 0.5 MG/DL (0.2-1.0) Gamma Glutamyl Transpeptidase 24 U/L (5-85) Aspartate Amino Transf (AST/SGOT) 33 U/L (15-37) Alanine Aminotransferase (ALT/SGPT) 25 U/L (12-78) Alkaline Phosphatase 63 U/L (46-116) Troponin I 2.266 ng/mL (0.000-0.056) C-Reactive Protein, Quantitative 2.2 mg/dL (0.00-0.90) H Pro-B-Type Natriuretic Peptide 5435 pg/mL (0-125) H Total Protein 6.9 G/DL (6.4-8.2) Albumin 2.6 G/DL (3.4-5.0) L Globulin 4.3 g/dL Albumin/Globulin Ratio 0.6 (1.0-2.7) L Triglycerides Level 72 MG/DL (30-150) Cholesterol Level 120 MG/DL (< 200) LDL Cholesterol 55 mg/dL (<100) HDL Cholesterol 57 MG/DL (40-60) Cholesterol/HDL Ratio 2.1 (3.3-4.4) L Vitamin B12 Level 1210 PG/ML (193-986) H Thyroid Stimulating Hormone (TSH) 1.869 uiU/mL (0.358-3.740) Microbiology Date/Time Source Procedure Growth Status 07/08/17 21:11 Blood Blood Culture - Preliminary NO GROWTH AFTER 24 HOURS Resulted 4/11/18 21:00 Blood Blood Culture - Preliminary NO GROWTH AFTER 24 HOURS Resulted 07/09/17 01:00 Nasal Nares Influenza Types A,B Antigen (BAM) - Final Complete Objective HEAD AND NECK: Showed no JVD. LUNGS: Clear. CARDIOVASCULAR: Shows regular S1 and S2 with no gallop or murmur. ABDOMEN: Soft. EXTREMITIES: Bilateral 2+ pitting edema. Srinivasa Sutton MD Jul 10, 2017 15:10
--- NOTE | 2017-07-10 16:45 | Consultation ---
DATE OF CONSULTATION: 07/10/2017 PULMONARY CONSULTATION CONSULTING PHYSICIAN: Rodolfo Medley M.D. HISTORY OF PRESENT ILLNESS: This is an 82-year-old female with a long-standing history of COPD. She states she is on home oxygen at 2 liters. She states her primary convention planner is Dr. Xavi Lemus. The patient also has a history of CAD, CHF, hypertension, diabetes mellitus, CKD, and previous DVT, presently on Eliquis, who came to the hospital with generalized weakness and swelling. The patient has been declining over the last few weeks. Apparently, she has had a change in her medical therapy also. She also reports anorexia. She has recently been started on Tresiba as well. PAST MEDICAL HISTORY: CKD, diabetes mellitus, CAD, CHF, COPD, and diabetes. HOME MEDICATIONS: Crestor, Januvia, Flomax, Spiriva, Demadex, and folic acid. She also takes albuterol via nebulizer at home. She also takes Eliquis, fluticasone, Tresiba, lispro, and oral prednisone as needed. ALLERGIES: None reported. SOCIAL HISTORY: Lives at home with caregiver. There is a previous history of tobacco use. REVIEW OF SYSTEMS: Denies any headaches, hematemesis, melena, or hematochezia. PHYSICAL EXAMINATION: GENERAL: Reveals elderly female. VITAL SIGNS: O2 saturation 94% on 4 liters of oxygen, blood pressure 105/50, heart rate is 74, respirations 16, afebrile. HEENT: Unremarkable. CHEST: Clear breath sounds bilaterally with diminished breath sounds at both lung bases. ABDOMEN: Soft. There is no edema. NEUROLOGIC: No focal. LABORATORY AND DIAGNOSTIC DATA: X-ray of chest shows evidence of pulmonary edema. Influenza antigen is negative. Laboratory shows hemoglobin of 10.8, white count 11.2. Chemistries are unremarkable. Troponin 0.09. Creatinine 3.3. IMPRESSION: 1. Pulmonary edema. 2. Chronic kidney disease. 3. Chronic obstructive pulmonary disease. DISCUSSION: At this point, the patient appears to be comfortable. I note that she has been started on her home medications with albuterol, apixaban, Breo, folic acid, Tresiba, Humalog, oral prednisone, Crestor, Januvia, Flomax, Spiriva, and Demadex. She may benefit from dialysis, however, this I will defer to her primary physician. At this time, she may be back to her baseline. Further discussion will be undertaken with primary care physician and the caregivers. We will follow as convention planner. At this point, I have no further interventions. I note, she is also on ceftriaxone, which is appropriate empiric therapy for suspected bronchitis. Rodolfo Medley M.D. DR: Shirley JOB#: [id number] CC:
[2017-07-10 20:00] VITALS: BP 110/58
[2017-07-10] MEDS: cefTRIAXone 1 GM in D5W 110 ML IVPB SCH (20:44)
[2017-07-10] MEDS: Tamsulosin 0.4mg cap ORAL SCH (20:44)
[2017-07-10 21:22] LABS: CREATININE 3.3 MG/DL (0.55-1.30)
[2017-07-10] MEDS: Miralax 17gm pkt ORAL SCH (21:23)
--- NOTE | 2017-07-10 23:08 | General Progress Note ---
Assessment/Plan Problem List: (1) Elevated troponin I level ICD Codes: R74.8 - Abnormal levels of other serum enzymes SNOMED: 294252711 (2) Acute on chronic diastolic heart failure ICD Codes: I50.33 - Acute on chronic diastolic (congestive) heart failure SNOMED: 708291182 (3) H/O deep venous thrombosis ICD Codes: Z86.718 - Personal history of other venous thrombosis and embolism SNOMED: 631333959 (4) CKD stage 3 (5) Anemia in chronic kidney disease ICD Codes: N18.9 - Chronic kidney disease, unspecified; D63.1 - Anemia in chronic kidney disease SNOMED: 074336520, 573013561 (6) Diabetic nephropathy ICD Codes: E11.21 - Type 2 diabetes mellitus with diabetic nephropathy SNOMED: 28152006, 645136278 (7) JUDSON on CKD stage 3 (8) Elevated troponin ICD Codes: R74.8 - Abnormal levels of other serum enzymes SNOMED: 458835822, 657794764, 815251508 Status: stable, progressing Status Narrative Renal consulted Lasix 40mg IV daily Strict I/O's, daily weights Continue payne per renal --> urinary retention therefore keep payne in for now Check urine studies, renal U/S --> mild right hydronephrosis with bilateral renal cysts trend Cr 3.3 --> 2.7 Hold nephrotoxic meds Empiric ceftriaxone for possible UTI F/u urine cx Cardiology consulted Trend trop 0.1 --> 2.2, cards aware. cards to assess for need for lovenox emergently Check TTE -- 50-55% EF Add lipitor Endo consulted Check A1C NADER Pulm consulted Cont O2, titrate to SpO2 88-92% Cont home prednisone 10mg daily Duonebs ATC and PRN Cont home meds Pain control, bowel regimen Supportive care DVT Prophylaxis: Eliquis Code Status: Full Hospital Classification Declaration: Based on this initial evaluation, and depending on the patient's clinical course, I anticipate that this patient will require hospitalization for 2-3 days for JUDSON, generalized weakness, and close respiratory/hemodynamic monitoring. Disposition: Once the patient is stable to leave the hospital, I anticipate the patient will likely be discharged to the following environment: home with HH vs SNF I spent 72 minutes on this patient's case, and >50% was dedicated to counseling and/or care coordination. Discussed with patient/family, nursing staff, SW/CM, [ ] regarding clinical status, treatment course, and disposition planning. Time of note may not reflect time of encounter. Subjective Date patient seen: Jul 10, 2017 Time patient seen: 15:00 Allergies: Coded Allergies: No Known Allergies (Unverified , 07/08/17) All Systems: reviewed and negative except above Subjective - feeling better today. denies cp, sob - AF, HDS - venous duplex showing chronic bilateral DVTs - renal ultrasound showing mild right hydronephrosis with bilateral renal cysts troponin jumpted from 0.1 to 2.2 today Objective Last 24 Hour Vital Signs Date Time Temp Pulse Resp B/P (MAP) Pulse Ox O2 Delivery O2 Flow Rate FiO2 07/10/17 21:13 77 110/63 07/10/17 21:07 81 20 97 Nasal Cannula 4.0 36 07/10/17 20:55 94 Nasal Cannula 2.0 28 07/10/17 20:55 Nasal Cannula 4.0 36 07/10/17 20:55 82 18 93 Nasal Cannula 4.0 36 07/10/17 20:00 99.3 77 20 110/58 87 Nasal Cannula 4.0 99.3 07/10/17 20:00 79 07/10/17 16:00 79 07/10/17 13:26 79 20 97 Nasal Cannula 4.0 36 07/10/17 13:19 89 18 93 Nasal Cannula 4.0 36 07/10/17 12:00 84 07/10/17 09:39 Nasal Cannula 07/10/17 09:39 Nasal Cannula 07/10/17 08:01 75 20 97 Nasal Cannula 4.0 36 07/10/17 08:00 77 07/10/17 07:53 85 Nasal Cannula 4.0 36 07/10/17 07:53 85 18 94 Nasal Cannula 4.0 36 07/10/17 07:53 Nasal Cannula 4.0 36 07/10/17 04:00 70 07/10/17 04:00 98.1 74 20 105/56 92 Nasal Cannula 4.0 98.1 07/10/17 02:28 Nasal Cannula 2.0 28 07/10/17 02:28 Nasal Cannula 2.0 28 07/10/17 00:00 98.2 68 20 106/56 94 Nasal Cannula 2.0 98.2 07/10/17 00:00 78 Intake and Output 07/09/17 07/10/17 19:00 07:00 Intake Total 200 ml Output Total 50 ml Balance 200 ml -50 ml Intake Oral 200 ml Output Urine Total 50 ml Laboratory Tests 07/10/17 07:15: White Blood Count 11.5H, Red Blood Count 3.39L, Hemoglobin 10.8L, Hematocrit 33.1L, Mean Corpuscular Volume 98, Mean Corpuscular Hemoglobin 31.9H, Mean Corpuscular Hemoglobin Concent 32.6, Red Cell Distribution Width 13.1, Platelet Count 199, Mean Platelet Volume 7.4, Neutrophils (%) (Auto) 73.4, Lymphocytes (% ) (Auto) 11.9L, Monocytes (%) (Auto) 11.4H, Eosinophils (%) (Auto) 2.9, Basophils (%) (Auto) 0.4, Sodium Level 145, Potassium Level 3.9, Chloride Level 102, Carbon Dioxide Level 36H, Anion Gap 7, Blood Urea Nitrogen 76H, Creatinine 2.7H, Estimat Glomerular Filtration Rate , Glucose Level 100#, Hemoglobin A1c 6.9H, Uric Acid 9.3H, Calcium Level 9.7, Phosphorus Level 5.3H, Magnesium Level 2.8H, Iron Level 55, Total Iron Binding Capacity 230L, Percent Iron Saturation 24, Unsaturated Iron Binding 175, Ferritin 474H, Total Bilirubin 0.5, Gamma Glutamyl Transpeptidase 24, Aspartate Amino Transf (AST/SGOT) 33, Alanine Aminotransferase (ALT/SGPT) 25, Alkaline Phosphatase 63, Troponin I 2.266H, C- Reactive Protein, Quantitative 2.2H, Pro-B-Type Natriuretic Peptide 5435H, Total Protein 6.9, Albumin 2.6L, Globulin 4.3, Albumin/Globulin Ratio 0.6L, Triglycerides Level 72, Cholesterol Level 120, LDL Cholesterol 55, HDL Cholesterol 57, Cholesterol/HDL Ratio 2.1L, Vitamin B12 Level 1210H, Thyroid Stimulating Hormone (TSH) 1.869 07/10/17 20:43: Troponin I 0.775H Height (Feet): 5 Height (Inches): 2.00 Weight (Pounds): 150 General Appearance: no apparent distress, alert EENT: PERRL/EOMI, normal ENT inspection Neck: non-tender, normal alignment Cardiovascular: normal peripheral pulses, normal rate, regular rhythm Respiratory/Chest: chest wall non-tender, lungs clear, normal breath sounds Neurologic: city sanitarian II-XII grossly normal, no motor/sensory deficits, alert, oriented x 3 Skin: normal pigmentation, warm/dry Julisa Clinton N.P. Jul 10, 2017 23:08
--- NOTE | 2017-07-10 23:26 | General Progress Note ---
Assessment/Plan Assessment/Plan 1. Anemia due to underlying chronic disease, potentially secondary to hemodilution. --> Continue to closely monitor. --> Anemia workup completed and reviewed. --> Iron 55, TIBC 230, Ferritin 175, B12 1210, Folate 44, TSH 1.9 --> Transfuse if hemoglobin <7 2. Leukocytosis, potentially secondary to reactive process versus underlying infection. --> Consider steroids as well. --> Monitor for improvement. 3. Pneumonia, is on broad-spectrum antibiotics. --> Continue to closely monitor. 4. Dehydration, currently receiving IV fluids as needed per primary team. 5. Troponin elevation, to be seen by Cardiology Service. 6. Acute kidney injury with creatinine of 3.3, to be seen by Dr. Asencio of Nephrology Service. We do not have the patient's baseline. 7. Hypertension. 8. Chronic bilateral lower extremity DVT. On apixaban. Subjective Date patient seen: Jul 09, 2017 Constitutional: Denies: no symptoms, chills, diaphoresis, fever, malaise, weakness, other HEENT: Denies: no symptoms, eye pain, blurred vision, tearing, double vision, ear pain, ear discharge, nose pain, nose congestion, throat pain, throat swelling, mouth pain, mouth swelling, other Cardiovascular: Denies: no symptoms, chest pain, edema, irregular heart rate, lightheadedness, palpitations, syncope, other Respiratory: Denies: no symptoms, cough, orthopnea, shortness of breath, SOB with excertion, SOB at rest, sputum, stridor, wheezing, other Gastrointestinal/Abdominal: Denies: no symptoms, abdomen distended, abdominal pain, black stools, tarry stools, blood in stool, constipated, diarrhea, difficulty swallowing, nausea, poor appetite, poor fluid intake, rectal bleeding , vomiting, other Genitourinary: Denies: no symptoms, burning, discharge, frequency, flank pain, hematuria, incontinence, pain, urgency, other Neurologic/Psychiatric: Denies: no symptoms, anxiety, depressed, emotional problems, headache, numbness, paresthesia, pre-existing deficit, seizure, tingling, tremors, weakness, other Hematologic/Lymphatic: Reports: anemia Allergies: Coded Allergies: No Known Allergies (Unverified , 07/08/17) Subjective H/H stable. No fever or chills. On abx. Objective Last 24 Hour Vital Signs Date Time Temp Pulse Resp B/P (MAP) Pulse Ox O2 Delivery O2 Flow Rate FiO2 07/10/17 21:13 77 110/63 07/10/17 21:07 81 20 97 Nasal Cannula 4.0 36 07/10/17 20:55 94 Nasal Cannula 2.0 28 07/10/17 20:55 Nasal Cannula 4.0 36 07/10/17 20:55 82 18 93 Nasal Cannula 4.0 36 07/10/17 20:00 99.3 77 20 110/58 87 Nasal Cannula 4.0 99.3 07/10/17 20:00 79 07/10/17 16:00 79 07/10/17 13:26 79 20 97 Nasal Cannula 4.0 36 07/10/17 13:19 89 18 93 Nasal Cannula 4.0 36 07/10/17 12:00 84 07/10/17 09:39 Nasal Cannula 07/10/17 09:39 Nasal Cannula 07/10/17 08:01 75 20 97 Nasal Cannula 4.0 36 07/10/17 08:00 77 07/10/17 07:53 85 Nasal Cannula 4.0 36 07/10/17 07:53 85 18 94 Nasal Cannula 4.0 36 07/10/17 07:53 Nasal Cannula 4.0 36 07/10/17 04:00 70 07/10/17 04:00 98.1 74 20 105/56 92 Nasal Cannula 4.0 98.1 07/10/17 02:28 Nasal Cannula 2.0 28 07/10/17 02:28 Nasal Cannula 2.0 28 07/10/17 00:00 98.2 68 20 106/56 94 Nasal Cannula 2.0 98.2 07/10/17 00:00 78 Intake and Output 07/09/17 07/10/17 19:00 07:00 Intake Total 200 ml Output Total 50 ml Balance 200 ml -50 ml Intake Oral 200 ml Output Urine Total 50 ml Laboratory Tests 07/10/17 07:15: White Blood Count 11.5H, Red Blood Count 3.39L, Hemoglobin 10.8L, Hematocrit 33.1L, Mean Corpuscular Volume 98, Mean Corpuscular Hemoglobin 31.9H, Mean Corpuscular Hemoglobin Concent 32.6, Red Cell Distribution Width 13.1, Platelet Count 199, Mean Platelet Volume 7.4, Neutrophils (%) (Auto) 73.4, Lymphocytes (% ) (Auto) 11.9L, Monocytes (%) (Auto) 11.4H, Eosinophils (%) (Auto) 2.9, Basophils (%) (Auto) 0.4, Sodium Level 145, Potassium Level 3.9, Chloride Level 102, Carbon Dioxide Level 36H, Anion Gap 7, Blood Urea Nitrogen 76H, Creatinine 2.7H, Estimat Glomerular Filtration Rate , Glucose Level 100#, Hemoglobin A1c 6.9H, Uric Acid 9.3H, Calcium Level 9.7, Phosphorus Level 5.3H, Magnesium Level 2.8H, Iron Level 55, Total Iron Binding Capacity 230L, Percent Iron Saturation 24, Unsaturated Iron Binding 175, Ferritin 474H, Total Bilirubin 0.5, Gamma Glutamyl Transpeptidase 24, Aspartate Amino Transf (AST/SGOT) 33, Alanine Aminotransferase (ALT/SGPT) 25, Alkaline Phosphatase 63, Troponin I 2.266H, C- Reactive Protein, Quantitative 2.2H, Pro-B-Type Natriuretic Peptide 5435H, Total Protein 6.9, Albumin 2.6L, Globulin 4.3, Albumin/Globulin Ratio 0.6L, Triglycerides Level 72, Cholesterol Level 120, LDL Cholesterol 55, HDL Cholesterol 57, Cholesterol/HDL Ratio 2.1L, Vitamin B12 Level 1210H, Thyroid Stimulating Hormone (TSH) 1.869 07/10/17 20:43: Troponin I 0.775H Height (Feet): 5 Height (Inches): 2.00 Weight (Pounds): 150 General Appearance: no apparent distress Respiratory/Chest: decreased breath sounds Abdomen: soft Festus Romero MD Jul 10, 2017 23:26
[2017-07-11] MEDS: Albuterol/Ipratropium 3ml neb HHN SCH ×4 (00:54→19:25)
[2017-07-11 04:00] VITALS: BP 112/49
[2017-07-11] MEDS: sitaGLIPtin 50mg tab ORAL SCH (05:54)
[2017-07-11] MEDS: NovoLOG Insulin Flexpen SUBQ SCH ×4 (06:30→21:28)
[2017-07-11 07:55] LABS: BASOPHILS % (AUTO) 0.4 % (0.0-2.0); EOSINOPHILS % (AUTO) 2.4 % (0.0-3.0); HEMATOCRIT 31.8 % (37.0-47.0); HEMOGLOBIN 10.6 G/DL (12.0-16.0); LYMPHOCYTES % (AUTO) 12.4 % (20.0-45.0); MEAN CORPUSCULAR VOLUME 97 FL (80-99); NEUTROPHILS % (AUTO) 73.8 % (45.0-75.0); PLATELET COUNT 169 K/UL (150-450); RED BLOOD COUNT 3.27 M/UL (4.20-5.40); RED CELL DISTRIBUTION WIDTH 13.2 % (11.6-14.8); WHITE BLOOD COUNT 11.1 K/UL (4.8-10.8)
--- NOTE | 2017-07-11 08:20 | Pulmonology Progress Note ---
Assessment/Plan Assessment/Plan 1. Pulmonary edema. 2. Chronic kidney disease. 3. Chronic obstructive pulmonary disease. DISCUSSION: Continue medications. She may benefit from dialysis, however, will defer to her primary physician. At this time, she may be back to her baseline. Continue ceftriaxone, which is appropriate empiric therapy for suspected bronchitis. Subjective Interval Events: None Constitutional: Reports: no symptoms HEENT: Repors: no symptoms Respiratory: Reports: no symptoms Cardiovascular: Reports: no symptoms Gastrointestinal/Abdominal: Reports: no symptoms Genitourinary: Reports: no symptoms Allergies: Coded Allergies: No Known Allergies (Unverified , 07/08/17) Objective Last 24 Hour Vital Signs Date Time Temp Pulse Resp B/P (MAP) Pulse Ox O2 Delivery O2 Flow Rate FiO2 07/11/17 08:14 Nasal Cannula 4.0 36 07/11/17 08:14 94 Nasal Cannula 4.0 36 07/11/17 08:13 78 18 92 Nasal Cannula 4.0 36 07/11/17 04:00 77 07/11/17 04:00 98.2 78 20 112/49 87 Nasal Cannula 3.0 98.2 07/11/17 01:10 75 20 96 Nasal Cannula 4.0 36 07/11/17 00:54 87 18 94 Nasal Cannula 4.0 36 07/11/17 00:00 69 07/10/17 21:13 77 110/63 07/10/17 21:07 81 20 97 Nasal Cannula 4.0 36 07/10/17 20:55 94 Nasal Cannula 2.0 28 07/10/17 20:55 Nasal Cannula 4.0 36 07/10/17 20:55 82 18 93 Nasal Cannula 4.0 36 07/10/17 20:00 99.3 77 20 110/58 87 Nasal Cannula 4.0 99.3 07/10/17 20:00 79 07/10/17 16:00 79 07/10/17 13:26 79 20 97 Nasal Cannula 4.0 36 07/10/17 13:19 89 18 93 Nasal Cannula 4.0 36 07/10/17 12:00 84 07/10/17 09:39 Nasal Cannula 07/10/17 09:39 Nasal Cannula Intake and Output 07/10/17 07/11/17 19:00 07:00 Intake Total 560 ml Output Total 800 ml 500 ml Balance -240 ml -500 ml Intake Oral 560 ml Output Urine Total 800 ml 500 ml General Appearance: no acute distress HEENT: normocephalic Respiratory/Chest: decreased breath sounds Cardiovascular: normal peripheral pulses, normal rate Abdomen: normal bowel sounds, soft, non tender Microbiology Date/Time Source Procedure Growth Status 07/08/17 21:11 Blood Blood Culture - Preliminary NO GROWTH AFTER 24 HOURS Resulted 07/08/17 21:00 Blood Blood Culture - Preliminary NO GROWTH AFTER 24 HOURS Resulted 07/09/17 01:00 Nasal Nares Influenza Types A,B Antigen (BAM) - Final Complete Laboratory Tests 07/10/17 20:43: Troponin I 0.775H 07/11/17 06:25: Troponin I [Pending], White Blood Count 11.1H, Red Blood Count 3.27L, Hemoglobin 10.6L, Hematocrit 31.8L, Mean Corpuscular Volume 97, Mean Corpuscular Hemoglobin 32.6H, Mean Corpuscular Hemoglobin Concent 33.4, Red Cell Distribution Width 13.2, Platelet Count 169, Mean Platelet Volume 7.3, Neutrophils (%) (Auto) 73.8, Lymphocytes (%) (Auto) 12.4L, Monocytes (%) (Auto) 11.0H, Eosinophils (%) (Auto) 2.4, Basophils (%) (Auto) 0.4, Sodium Level [ Pending], Potassium Level [Pending], Chloride Level [Pending], Carbon Dioxide Level [Pending], Blood Urea Nitrogen [Pending], Creatinine [Pending], Estimat Glomerular Filtration Rate [Pending], Glucose Level [Pending], Uric Acid [ Pending], Calcium Level [Pending], Phosphorus Level [Pending], Magnesium Level [ Pending], Total Bilirubin [Pending], Aspartate Amino Transf (AST/SGOT) [Pending] , Alanine Aminotransferase (ALT/SGPT) [Pending], Alkaline Phosphatase [Pending] , Pro-B-Type Natriuretic Peptide [Pending], Total Protein [Pending], Albumin [ Pending], Globulin [Pending], Folate [Pending] Current Medications Medications (Trade) Dose Ordered Sig/Jennifer Route PRN Reason Start Time Stop Time Status Last Admin Dose Admin Acetaminophen (Tylenol) 650 mg Q6H PRN ORAL Mild Pain/Temp > 100.5 07/09/17 02:30 08/08/17 02:29 Albuterol/ Ipratropium (Albuterol/ Ipratropium) 3 ml Q4H PRN HHN Shortness of Breath 07/09/17 11:15 07/14/17 11:14 Albuterol/ Ipratropium (Albuterol/ Ipratropium) 3 ml Q6HRT HHN 07/09/17 13:00 07/14/17 12:59 07/11/17 08:13 Apixaban (Eliquis) 2.5 mg BID ORAL 07/09/17 09:00 08/08/17 08:59 07/10/17 18:21 Aspirin (ASA) 81 mg DAILY ORAL 07/09/17 09:00 08/08/17 08:59 07/10/17 09:56 Atorvastatin Calcium (Lipitor) 10 mg BEDTIME ORAL 07/09/17 21:00 08/08/17 20:59 07/10/17 20:44 Ceftriaxone Sodium 1 gm/ Dextrose 110 ml @ 220 mls/hr Q24H IVPB 07/09/17 20:00 07/16/17 19:59 07/10/17 20:44 Dextrose (Dextrose 50%) 25 ml STAT PRN IV Hypoglycemia 07/09/17 02:30 08/08/17 02:29 Dextrose (Dextrose 50%) 50 ml STAT PRN IV Hypoglycemia 07/09/17 06:30 08/08/17 02:29 Diphenhydramine HCl (Benadryl) 25 mg Q6H PRN ORAL Itching 07/09/17 02:30 08/08/17 02:29 Fluoxetine HCl (PROzac) 20 mg DAILY ORAL 07/10/17 12:00 08/09/17 11:59 07/10/17 11:49 Furosemide (Lasix) 40 mg DAILY IV 07/09/17 09:00 08/08/17 08:59 07/10/17 09:55 Hydromorphone HCl (Dilaudid) 0.5 mg Q4H PRN IVP pain 4-10 07/09/17 12:45 07/16/17 02:29 07/09/17 12:51 Insulin Aspart (NovoLOG) BEFORE MEALS AND HS SUBQ 07/09/17 06:30 08/08/17 06:29 07/10/17 20:41 Lorazepam (Ativan) 1 mg Q4H PRN ORAL Agitation 07/10/17 11:00 07/17/17 10:59 Metoprolol Tartrate (Lopressor) 12.5 mg Q12HR ORAL 07/10/17 21:00 08/09/17 20:59 Nitroglycerin (Ntg) 1 patch Q24H TDERMAL 07/10/17 13:00 08/09/17 12:59 Ondansetron HCl (Zofran) 4 mg Q6H PRN IVP Nausea & Vomiting 07/09/17 02:30 08/08/17 02:29 Polyethylene Glycol (Miralax) 17 gm BEDTIME ORAL 07/09/17 21:00 08/08/17 20:59 07/10/17 21:23 Prednisone (predniSONE) 10 mg DAILY ORAL 07/09/17 09:00 08/08/17 08:59 07/10/17 09:55 Regadenoson (Lexiscan) 0.4 mg ONCE PRN IV . 07/13/17 14:00 07/13/17 23:59 Sitagliptin Phosphate (Januvia) 50 mg ACBREAKFAST ORAL 07/09/17 06:30 08/08/17 06:29 07/11/17 05:54 Tamsulosin HCl (Flomax) 0.4 mg BEDTIME ORAL 07/09/17 21:00 08/08/17 20:59 07/10/17 20:44 Tiotropium Rosebud (Spiriva Inhaler) 1 puff DAILY INH 07/09/17 09:00 08/08/17 08:59 07/09/17 09:20 Vitamin D (Vitamin D) 1,000 intlu DAILY ORAL 07/09/17 09:00 08/08/17 08:59 07/10/17 09:56 Rodolfo Medley MD Jul 11, 2017 08:20
[2017-07-11 08:22] LABS: ALANINE AMINOTRANSFERASE 26 U/L (12-78); ALBUMIN 2.5 G/DL (3.4-5.0); ALBUMIN/GLOBULIN RATIO 0.6 (1.0-2.7); ALKALINE PHOSPHATASE 62 U/L (46-116); ANION GAP 1 mmol/L (5-15); ASPARTATE AMINO TRANSFERASE 28 U/L (15-37); BILIRUBIN,TOTAL 0.4 MG/DL (0.2-1.0); BLOOD UREA NITROGEN 71 mg/dL (7-18); CALCIUM 9.3 MG/DL (8.5-10.1); CARBON DIOXIDE 39 MMOL/L (21-32); CHLORIDE 102 MMOL/L (98-107); CREATININE 2.6 MG/DL (0.55-1.30); PHOSPHORUS 4.3 MG/DL (2.5-4.9); POTASSIUM 3.5 MMOL/L (3.5-5.1); SODIUM 142 MMOL/L (136-145)
--- NOTE | 2017-07-11 09:02 | Nephrology Progress Note ---
Assessment/Plan Problem List: (1) CKD (chronic kidney disease) (2) COPD on home O2 (3) Anemia in chronic kidney disease (4) Elevated troponin I level Assessment Renal failure- Know stage 3 CKD since Feb 2016- Cr lower after payne now 2.6 Diabetic Nephropathy Exacerbation COPD Anemia CHF ?UTI Plan Anemia benton Payne in 24 H urine studies noted BP and BS control Echo and [place] results noted pulmonary support Cardiac support ASA , Nitro [place] Impression: 837 mL bladder volume. Payne catheter reportedly present, but the latter is not visible, catheter presumably malpositioned. Increased left renal echogenicity, consistent with medical renal disease Mild right hydronephrosis, possibly but not definitively related to the lack of bladder emptying Incidental finding bilateral renal cysts. Subjective ROS Limited/Unobtainable: No Constitutional: Reports: malaise Objective Objective Last 24 Hour Vital Signs Date Time Temp Pulse Resp B/P (MAP) Pulse Ox O2 Delivery O2 Flow Rate FiO2 07/11/17 08:21 82 20 98 Nasal Cannula 4.0 36 07/11/17 08:14 Nasal Cannula 4.0 36 07/11/17 08:14 94 Nasal Cannula 4.0 36 07/11/17 08:13 78 18 92 Nasal Cannula 4.0 36 07/11/17 04:00 77 07/11/17 04:00 98.2 78 20 112/49 87 Nasal Cannula 3.0 98.2 07/11/17 01:10 75 20 96 Nasal Cannula 4.0 36 07/11/17 00:54 87 18 94 Nasal Cannula 4.0 36 07/11/17 00:00 69 07/10/17 21:13 77 110/63 07/10/17 21:07 81 20 97 Nasal Cannula 4.0 36 07/10/17 20:55 94 Nasal Cannula 2.0 28 07/10/17 20:55 Nasal Cannula 4.0 36 07/10/17 20:55 82 18 93 Nasal Cannula 4.0 36 07/10/17 20:00 99.3 77 20 110/58 87 Nasal Cannula 4.0 99.3 07/10/17 20:00 79 07/10/17 16:00 79 07/10/17 13:26 79 20 97 Nasal Cannula 4.0 36 07/10/17 13:19 89 18 93 Nasal Cannula 4.0 36 4/13/18 12:00 84 07/10/17 09:39 Nasal Cannula 07/10/17 09:39 Nasal Cannula Intake and Output 07/10/17 07/11/17 19:00 07:00 Intake Total 560 ml Output Total 800 ml 500 ml Balance -240 ml -500 ml Intake Oral 560 ml Output Urine Total 800 ml 500 ml Laboratory Tests 07/10/17 20:43: Troponin I 0.775H 07/11/17 06:25: Troponin I 0.812H, White Blood Count 11.1H, Red Blood Count 3.27L, Hemoglobin 10.6L, Hematocrit 31.8L, Mean Corpuscular Volume 97, Mean Corpuscular Hemoglobin 32.6H, Mean Corpuscular Hemoglobin Concent 33.4, Red Cell Distribution Width 13.2, Platelet Count 169, Mean Platelet Volume 7.3, Neutrophils (%) (Auto) 73.8, Lymphocytes (%) (Auto) 12.4L, Monocytes (%) (Auto) 11.0H, Eosinophils (%) (Auto) 2.4, Basophils (%) (Auto) 0.4, Sodium Level 142, Potassium Level 3.5, Chloride Level 102, Carbon Dioxide Level 39H, Anion Gap 1L , Blood Urea Nitrogen 71H, Creatinine 2.6H, Estimat Glomerular Filtration Rate , Glucose Level 110H, Uric Acid 8.6H, Calcium Level 9.3, Phosphorus Level 4.3, Magnesium Level 2.5H, Total Bilirubin 0.4, Aspartate Amino Transf (AST/SGOT) 28 , Alanine Aminotransferase (ALT/SGPT) 26, Alkaline Phosphatase 62, Pro-B-Type Natriuretic Peptide 4797H, Total Protein 6.6, Albumin 2.5L, Globulin 4.1, Albumin/Globulin Ratio 0.6L, Folate 37.2 Height (Feet): 5 Height (Inches): 2.00 Weight (Pounds): 150 General Appearance: no apparent distress Respiratory/Chest: decreased breath sounds Abdomen: soft Extremities: other - less edema LISETH HERNANDEZ Jul 11, 2017 09:02
[2017-07-11] MEDS: Eliquis 2.5mg tablet ORAL SCH ×2 (09:07→19:14)
[2017-07-11] MEDS: Aspirin Baby 81mg ORAL SCH (09:08)
[2017-07-11] MEDS: Vitamin D 1000 IU Tab ORAL SCH (09:09)
[2017-07-11] MEDS: Metoprolol Tartrate 12.5mg TAB ORAL SCH ×2 (09:09→21:29)
[2017-07-11 12:00] VITALS: BP 110/51
--- NOTE | 2017-07-11 12:44 | Cardiac Electrophysiology PN ---
Assessment/Plan Assessment/Plan 1. Troponin leak 0.1 and 0.1 and 2.2, 0.77 and 0.8. Likely due to renal failure with a creatinine of 3.3. The patient does not have any chest pain. EKG showed nonspecific ST-T wave abnormalities. Echocardiogram showed Nl EF. Continue aspirin, metoprolol 12.5 mg b.i.d and Lipitor. Offered stress test on Thursday but both patient and her DPOA refusing. 2. Hypertension. Change Lasix to 40 mg po daily and metoprolol 12.5 mg b.i.d. 3. Diabetes. On insulin. 4. Lower extremity edema. Lower extremity duplex no DVT. Continue Lasix 40 daily. 5. Renal failure. Creatinine more than 3. Today is 2.6 6. 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 7. Psych Follow up Dr Kofi CUNNINGHAM RN and DPOA Subjective Subjective Alert in NAD. No chest pain or SOB. POA at bedside Objective Last 24 Hour Vital Signs Date Time Temp Pulse Resp B/P (MAP) Pulse Ox O2 Delivery O2 Flow Rate FiO2 07/11/17 10:01 72 19 97 Nasal Cannula 4.0 36 07/11/17 10:01 72 19 97 Nasal Cannula 4.0 36 07/11/17 09:09 95 105/53 07/11/17 08:21 82 20 98 Nasal Cannula 4.0 36 07/11/17 08:14 Nasal Cannula 4.0 36 07/11/17 08:14 94 Nasal Cannula 4.0 36 07/11/17 08:13 78 18 92 Nasal Cannula 4.0 36 07/11/17 08:00 88 07/11/17 04:00 77 07/11/17 04:00 98.2 78 20 112/49 87 Nasal Cannula 3.0 98.2 07/11/17 01:10 75 20 96 Nasal Cannula 4.0 36 07/11/17 00:54 87 18 94 Nasal Cannula 4.0 36 07/11/17 00:00 69 07/10/17 21:13 77 110/63 07/10/17 21:07 81 20 97 Nasal Cannula 4.0 36 07/10/17 20:55 94 Nasal Cannula 2.0 28 07/10/17 20:55 Nasal Cannula 4.0 36 07/10/17 20:55 82 18 93 Nasal Cannula 4.0 36 07/10/17 20:00 99.3 77 20 110/58 87 Nasal Cannula 4.0 99.3 07/10/17 20:00 79 07/10/17 16:00 79 07/10/17 13:26 79 20 97 Nasal Cannula 4.0 36 07/10/17 13:19 89 18 93 Nasal Cannula 4.0 36 Intake and Output 07/10/17 07/11/17 19:00 07:00 Intake Total 560 ml Output Total 800 ml 500 ml Balance -240 ml -500 ml Intake Oral 560 ml Output Urine Total 800 ml 500 ml Laboratory Tests Test 07/10/17 20:43 07/11/17 06:25 Troponin I 0.775 ng/mL (0.000-0.056) 0.812 ng/mL (0.000-0.056) White Blood Count 11.1 K/UL (4.8-10.8) H Red Blood Count 3.27 M/UL (4.20-5.40) L Hemoglobin 10.6 G/DL (12.0-16.0) L Hematocrit 31.8 % (37.0-47.0) L Mean Corpuscular Volume 97 FL (80-99) Mean Corpuscular Hemoglobin 32.6 PG (27.0-31.0) H Mean Corpuscular Hemoglobin Concent 33.4 G/DL (32.0-36.0) Red Cell Distribution Width 13.2 % (11.6-14.8) Platelet Count 169 K/UL (150-450) Mean Platelet Volume 7.3 FL (6.5-10.1) Neutrophils (%) (Auto) 73.8 % (45.0-75.0) Lymphocytes (%) (Auto) 12.4 % (20.0-45.0) L Monocytes (%) (Auto) 11.0 % (1.0-10.0) H Eosinophils (%) (Auto) 2.4 % (0.0-3.0) Basophils (%) (Auto) 0.4 % (0.0-2.0) Sodium Level 142 MMOL/L (136-145) Potassium Level 3.5 MMOL/L (3.5-5.1) Chloride Level 102 MMOL/L (98-107) Carbon Dioxide Level 39 MMOL/L (21-32) H Anion Gap 1 mmol/L (5-15) L Blood Urea Nitrogen 71 mg/dL (7-18) H Creatinine 2.6 MG/DL (0.55-1.30) H Estimat Glomerular Filtration Rate mL/min (>60) Glucose Level 110 MG/DL (74-106) H Uric Acid 8.6 MG/DL (2.6-7.2) H Calcium Level 9.3 MG/DL (8.5-10.1) Phosphorus Level 4.3 MG/DL (2.5-4.9) Magnesium Level 2.5 MG/DL (1.8-2.4) H Total Bilirubin 0.4 MG/DL (0.2-1.0) Aspartate Amino Transf (AST/SGOT) 28 U/L (15-37) Alanine Aminotransferase (ALT/SGPT) 26 U/L (12-78) Alkaline Phosphatase 62 U/L (46-116) Pro-B-Type Natriuretic Peptide 4797 pg/mL (0-125) H Total Protein 6.6 G/DL (6.4-8.2) Albumin 2.5 G/DL (3.4-5.0) L Globulin 4.1 g/dL Albumin/Globulin Ratio 0.6 (1.0-2.7) L Folate 37.2 NG/ML (8.6-58.9) Microbiology Date/Time Source Procedure Growth Status 07/08/17 21:11 Blood Blood Culture - Preliminary NO GROWTH AFTER 48 HOURS Resulted 07/08/17 21:00 Blood Blood Culture - Preliminary NO GROWTH AFTER 48 HOURS Resulted 07/09/17 01:00 Nasal Nares Influenza Types A,B Antigen (BAM) - Final Complete Objective HEAD AND NECK: No JVD. LUNGS: Clear. CARDIOVASCULAR: Regular S1 and S2 with no gallop or murmur. ABDOMEN: Soft. EXTREMITIES: Bilateral 2+ pitting edema. Srinivasa Sutton MD Jul 11, 2017 12:44
[2017-07-11] MEDS: Nitroglycerin Patch 0.4mg TDERMAL SCH (13:00)
[2017-07-11 16:00] VITALS: BP 120/75
[2017-07-11 20:00] VITALS: BP 115/61
[2017-07-11] MEDS ORDERED: Sennosides 8.6mg ORAL SCH (20:00)
[2017-07-11] MEDS: Miralax 17gm pkt ORAL SCH (21:22)
[2017-07-11] MEDS: cefTRIAXone 1 GM in D5W 110 ML IVPB SCH (21:22)
[2017-07-11] MEDS: Tamsulosin 0.4mg cap ORAL SCH (21:22)
--- NOTE | 2017-07-11 23:51 | General Progress Note ---
Assessment/Plan Problem List: (1) Elevated troponin I level ICD Codes: R74.8 - Abnormal levels of other serum enzymes SNOMED: 286932075 (2) Acute on chronic diastolic heart failure ICD Codes: I50.33 - Acute on chronic diastolic (congestive) heart failure SNOMED: 832739767 (3) H/O deep venous thrombosis ICD Codes: Z86.718 - Personal history of other venous thrombosis and embolism SNOMED: 199477121 (4) CKD stage 3 (5) Anemia in chronic kidney disease ICD Codes: N18.9 - Chronic kidney disease, unspecified; D63.1 - Anemia in chronic kidney disease SNOMED: 026623189, 471523141 (6) Diabetic nephropathy ICD Codes: E11.21 - Type 2 diabetes mellitus with diabetic nephropathy SNOMED: 07043715, 922659520 (7) JUDSON on CKD stage 3 (8) DM2 (diabetes mellitus, type 2) ICD Codes: E11.9 - Type 2 diabetes mellitus without complications SNOMED: 64184175 Qualifiers: Status: stable Assessment/Plan Renal consulted Lasix 40mg IV daily -- changed to lasix 40mg PO qd Strict I/O's, daily weights Continue payne per renal --> urinary retention therefore keep payne in for now and diurese Check urine studies, renal U/S --> mild right hydronephrosis with bilateral renal cysts trend Cr 3.3 --> 2.7 Hold nephrotoxic meds Empiric ceftriaxone for possible UTI F/u urine cx Cardiology consulted Trend trop 0.1 --> 2.2 --> 0.7 --> 0.8. Troponin leak likely secondary to acute renal failure Check TTE -- 50-55% EF venous u/s - chronic bilateral DVTs. continue eliquis Add lipitor Endo consulted Check A1C 6.9 NADER Pulm consulted Cont O2, titrate to SpO2 88-92% Cont home prednisone 10mg daily Duonebs ATC and PRN Cont home meds Pain control, bowel regimen Supportive care DVT Prophylaxis: Eliquis Code Status: Full Hospital Classification Declaration: Based on this initial evaluation, and depending on the patient's clinical course, I anticipate that this patient will require hospitalization for 2-3 days for JUDSON, generalized weakness, and close respiratory/hemodynamic monitoring. Disposition: Once the patient is stable to leave the hospital, I anticipate the patient will likely be discharged to the following environment: home with HH vs SNF I spent 32 minutes on this patient's case, and >50% was dedicated to counseling and/or care coordination. Discussed with patient/family, nursing staff, SW/CM, [ ] regarding clinical status, treatment course, and disposition planning. Time of note may not reflect time of encounter. Subjective Date patient seen: Jul 11, 2017 Time patient seen: 12:00 Allergies: Coded Allergies: No Known Allergies (Unverified , 07/08/17) Subjective - troponin is downtrending. Cr downtrending - feeling better today. denies cp, sob - AF, HDS Objective Last 24 Hour Vital Signs Date Time Temp Pulse Resp B/P (MAP) Pulse Ox O2 Delivery O2 Flow Rate FiO2 07/11/17 21:29 95 115/61 07/11/17 20:32 Nasal Cannula 07/11/17 20:32 Nasal Cannula 07/11/17 20:31 94 Nasal Cannula 3.0 32 07/11/17 20:31 Nasal Cannula 3.0 32 07/11/17 20:00 Nasal Cannula 3.0 07/11/17 20:00 87 07/11/17 20:00 97.9 95 16 115/61 94 97.9 07/11/17 16:00 97.1 83 18 120/75 98 Room Air 97.1 07/11/17 16:00 97 07/11/17 13:20 80 20 97 Nasal Cannula 4.0 36 07/11/17 13:00 109/53 07/11/17 12:57 75 18 96 Nasal Cannula 4.0 36 07/11/17 12:00 86 07/11/17 12:00 97.1 95 17 110/51 99 Room Air 97.1 07/11/17 10:01 72 19 97 Nasal Cannula 4.0 36 07/11/17 10:01 72 19 97 Nasal Cannula 4.0 36 07/11/17 09:09 95 105/53 07/11/17 08:21 82 20 98 Nasal Cannula 4.0 36 07/11/17 08:14 Nasal Cannula 4.0 36 07/11/17 08:14 94 Nasal Cannula 4.0 36 07/11/17 08:13 78 18 92 Nasal Cannula 4.0 36 07/11/17 08:00 88 07/11/17 04:00 77 07/11/17 04:00 98.2 78 20 112/49 87 Nasal Cannula 3.0 98.2 07/11/17 01:10 75 20 96 Nasal Cannula 4.0 36 07/11/17 00:54 87 18 94 Nasal Cannula 4.0 36 07/11/17 00:00 69 Intake and Output 07/10/17 07/11/17 19:00 07:00 Intake Total 560 ml Output Total 800 ml 500 ml Balance -240 ml -500 ml Intake Oral 560 ml Output Urine Total 800 ml 500 ml Intake and Output 07/10/17 07/11/17 19:00 07:00 Intake Total 560 ml Output Total 800 ml 500 ml Balance -240 ml -500 ml Intake Oral 560 ml Output Urine Total 800 ml 500 ml Laboratory Tests 07/11/17 06:25: White Blood Count 11.1H, Red Blood Count 3.27L, Hemoglobin 10.6L, Hematocrit 31.8L, Mean Corpuscular Volume 97, Mean Corpuscular Hemoglobin 32.6H, Mean Corpuscular Hemoglobin Concent 33.4, Red Cell Distribution Width 13.2, Platelet Count 169, Mean Platelet Volume 7.3, Neutrophils (%) (Auto) 73.8, Lymphocytes (% ) (Auto) 12.4L, Monocytes (%) (Auto) 11.0H, Eosinophils (%) (Auto) 2.4, Basophils (%) (Auto) 0.4, Sodium Level 142, Potassium Level 3.5, Chloride Level 102, Carbon Dioxide Level 39H, Anion Gap 1L, Blood Urea Nitrogen 71H, Creatinine 2.6H, Estimat Glomerular Filtration Rate , Glucose Level 110H, Uric Acid 8.6H, Calcium Level 9.3, Phosphorus Level 4.3, Magnesium Level 2.5H, Total Bilirubin 0.4, Aspartate Amino Transf (AST/SGOT) 28, Alanine Aminotransferase ( ALT/SGPT) 26, Alkaline Phosphatase 62, Troponin I 0.812H, Pro-B-Type Natriuretic Peptide 4797H, Total Protein 6.6, Albumin 2.5L, Globulin 4.1, Albumin/Globulin Ratio 0.6L, Folate 37.2 Height (Feet): 5 Height (Inches): 2.00 Weight (Pounds): 150 General Appearance: no apparent distress, alert EENT: PERRL/EOMI, normal ENT inspection Neck: non-tender, normal alignment, supple Cardiovascular: normal peripheral pulses, normal rate, regular rhythm Respiratory/Chest: chest wall non-tender, lungs clear, normal breath sounds Abdomen: normal bowel sounds, non tender, soft Genitourinary/Rectal: other - +payne Extremities: normal range of motion, non-tender Edema: moderate edema 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 Jul 11, 2017 23:51
--- NOTE | 2017-07-11 23:58 | General Progress Note ---
Assessment/Plan Assessment/Plan 1. Anemia due to underlying chronic disease, potentially secondary to hemodilution. --> Continue to closely monitor. --> Anemia workup completed and reviewed. --> Iron 55, TIBC 230, Ferritin 175, B12 1210, Folate 44, TSH 1.9 --> Blood transfusion not needed unless symptomatic or hemoglobin <7 2. Leukocytosis, potentially secondary to reactive process versus underlying infection. --> Consider steroids as well. --> Monitor for improvement. 3. Pneumonia, is on broad-spectrum antibiotics. --> Continue to closely monitor. 4. Dehydration, currently receiving IV fluids as needed per primary team. 5. Troponin elevation, to be seen by Cardiology Service. --> Levels downtrending. 6. Acute kidney injury with creatinine of 3.3, to be seen by Dr. Asencio of Nephrology Service. We do not have the patient's baseline. --> Cr downtrending and improving. 7. Hypertension. 8. Chronic bilateral lower extremity DVT. On apixaban. Subjective Date patient seen: Jul 11, 2017 Constitutional: Denies: no symptoms, chills, diaphoresis, fever, malaise, weakness, other HEENT: Denies: no symptoms, eye pain, blurred vision, tearing, double vision, ear pain, ear discharge, nose pain, nose congestion, throat pain, throat swelling, mouth pain, mouth swelling, other Cardiovascular: Denies: no symptoms, chest pain, edema, irregular heart rate, lightheadedness, palpitations, syncope, other Respiratory: Denies: no symptoms, cough, orthopnea, shortness of breath, SOB with excertion, SOB at rest, sputum, stridor, wheezing, other Gastrointestinal/Abdominal: Denies: no symptoms, abdomen distended, abdominal pain, black stools, tarry stools, blood in stool, constipated, diarrhea, difficulty swallowing, nausea, poor appetite, poor fluid intake, rectal bleeding , vomiting, other Genitourinary: Denies: no symptoms, burning, discharge, frequency, flank pain, hematuria, incontinence, pain, urgency, other Neurologic/Psychiatric: Denies: no symptoms, anxiety, depressed, emotional problems, headache, numbness, paresthesia, pre-existing deficit, seizure, tingling, tremors, weakness, other Endocrine: Denies: no symptoms, excessive sweating, flushing, intolerance to cold, intolerance to heat, increased hunger, increased thirst, increased urine, unexplained weight gain, unexplained weight loss, other Hematologic/Lymphatic: Reports: anemia Allergies: Coded Allergies: No Known Allergies (Unverified , 07/08/17) Subjective H/H stable. No respiratory distress. No complaints of pain. Objective Last 24 Hour Vital Signs Date Time Temp Pulse Resp B/P (MAP) Pulse Ox O2 Delivery O2 Flow Rate FiO2 07/11/17 21:29 95 115/61 07/11/17 20:32 Nasal Cannula 07/11/17 20:32 Nasal Cannula 07/11/17 20:31 94 Nasal Cannula 3.0 32 07/11/17 20:31 Nasal Cannula 3.0 32 07/11/17 20:00 Nasal Cannula 3.0 07/11/17 20:00 87 07/11/17 20:00 97.9 95 16 115/61 94 97.9 07/11/17 16:00 97.1 83 18 120/75 98 Room Air 97.1 07/11/17 16:00 97 07/11/17 13:20 80 20 97 Nasal Cannula 4.0 36 07/11/17 13:00 109/53 07/11/17 12:57 75 18 96 Nasal Cannula 4.0 36 07/11/17 12:00 86 07/11/17 12:00 97.1 95 17 110/51 99 Room Air 97.1 07/11/17 10:01 72 19 97 Nasal Cannula 4.0 36 07/11/17 10:01 72 19 97 Nasal Cannula 4.0 36 07/11/17 09:09 95 105/53 07/11/17 08:21 82 20 98 Nasal Cannula 4.0 36 07/11/17 08:14 Nasal Cannula 4.0 36 07/11/17 08:14 94 Nasal Cannula 4.0 36 07/11/17 08:13 78 18 92 Nasal Cannula 4.0 36 07/11/17 08:00 88 07/11/17 04:00 77 07/11/17 04:00 98.2 78 20 112/49 87 Nasal Cannula 3.0 98.2 07/11/17 01:10 75 20 96 Nasal Cannula 4.0 36 07/11/17 00:54 87 18 94 Nasal Cannula 4.0 36 07/11/17 00:00 69 Intake and Output 07/10/17 07/11/17 19:00 07:00 Intake Total 560 ml Output Total 800 ml 500 ml Balance -240 ml -500 ml Intake Oral 560 ml Output Urine Total 800 ml 500 ml Laboratory Tests 07/11/17 06:25: White Blood Count 11.1H, Red Blood Count 3.27L, Hemoglobin 10.6L, Hematocrit 31.8L, Mean Corpuscular Volume 97, Mean Corpuscular Hemoglobin 32.6H, Mean Corpuscular Hemoglobin Concent 33.4, Red Cell Distribution Width 13.2, Platelet Count 169, Mean Platelet Volume 7.3, Neutrophils (%) (Auto) 73.8, Lymphocytes (% ) (Auto) 12.4L, Monocytes (%) (Auto) 11.0H, Eosinophils (%) (Auto) 2.4, Basophils (%) (Auto) 0.4, Sodium Level 142, Potassium Level 3.5, Chloride Level 102, Carbon Dioxide Level 39H, Anion Gap 1L, Blood Urea Nitrogen 71H, Creatinine 2.6H, Estimat Glomerular Filtration Rate , Glucose Level 110H, Uric Acid 8.6H, Calcium Level 9.3, Phosphorus Level 4.3, Magnesium Level 2.5H, Total Bilirubin 0.4, Aspartate Amino Transf (AST/SGOT) 28, Alanine Aminotransferase ( ALT/SGPT) 26, Alkaline Phosphatase 62, Troponin I 0.812H, Pro-B-Type Natriuretic Peptide 4797H, Total Protein 6.6, Albumin 2.5L, Globulin 4.1, Albumin/Globulin Ratio 0.6L, Folate 37.2 Height (Feet): 5 Height (Inches): 2.00 Weight (Pounds): 150 General Appearance: no apparent distress Neck: normal alignment Respiratory/Chest: lungs clear Abdomen: non tender, soft Neurologic: ground layer II-XII grossly normal Festus Romero MD Jul 11, 2017 23:58
[2017-07-12] VITALS: BP 109/60
[2017-07-12] MEDS: Albuterol/Ipratropium 3ml neb HHN SCH ×4 (00:45→19:36)
[2017-07-12 04:00] VITALS: BP 115/65
--- NOTE | 2017-07-12 06:29 | General Progress Note ---
Assessment/Plan Problem List: (1) CAD (coronary artery disease) ICD Codes: I25.10 - Atherosclerotic heart disease of [place] coronary artery without angina pectoris SNOMED: 37758029 (2) COPD on home O2 (3) CKD stage 3 (4) DM2 (diabetes mellitus, type 2) ICD Codes: E11.9 - Type 2 diabetes mellitus without complications SNOMED: 15633585 Qualifiers: Assessment/Plan add Levemir 8 units daily add Novolog 4 units ac tid continue NISS continue Januvia 50 mg daily Subjective Allergies: Coded Allergies: No Known Allergies (Unverified , 07/08/17) All Systems: reviewed and negative except above Subjective events noted - interval notes reviewed Objective Last 24 Hour Vital Signs Date Time Temp Pulse Resp B/P (MAP) Pulse Ox O2 Delivery O2 Flow Rate FiO2 07/12/17 04:00 97.0 69 16 115/65 95 Nasal Cannula 3.0 97.0 07/12/17 04:00 97 07/12/17 00:45 Nasal Cannula 07/12/17 00:44 Nasal Cannula 07/12/17 00:00 89 07/12/17 00:00 97.7 63 16 109/60 96 Nasal Cannula 3.0 97.7 07/11/17 21:29 95 115/61 07/11/17 20:32 Nasal Cannula 07/11/17 20:32 Nasal Cannula 07/11/17 20:31 94 Nasal Cannula 3.0 32 07/11/17 20:31 Nasal Cannula 3.0 32 07/11/17 20:00 Nasal Cannula 3.0 07/11/17 20:00 87 07/11/17 20:00 97.9 95 16 115/61 94 97.9 07/11/17 16:00 97.1 83 18 120/75 98 Room Air 97.1 07/11/17 16:00 97 07/11/17 13:20 80 20 97 Nasal Cannula 4.0 36 07/11/17 13:00 109/53 07/11/17 12:57 75 18 96 Nasal Cannula 4.0 36 07/11/17 12:00 86 07/11/17 12:00 97.1 95 17 110/51 99 Room Air 97.1 07/11/17 10:01 72 19 97 Nasal Cannula 4.0 36 07/11/17 10:01 72 19 97 Nasal Cannula 4.0 36 07/11/17 09:09 95 105/53 07/11/17 08:21 82 20 98 Nasal Cannula 4.0 36 07/11/17 08:14 Nasal Cannula 4.0 36 07/11/17 08:14 94 Nasal Cannula 4.0 36 07/11/17 08:13 78 18 92 Nasal Cannula 4.0 36 07/11/17 08:00 88 Intake and Output 07/11/17 07/12/17 19:00 07:00 Intake Total 348 ml 110 ml Output Total 600 ml Balance -252 ml 110 ml Intake Oral 348 ml IV Total 110 ml Output Urine Total 600 ml Laboratory Tests 07/12/17 00:10: Stool Occult Blood [Pending] Height (Feet): 5 Height (Inches): 2.00 Weight (Pounds): 150 General Appearance: no apparent distress Neck: non-tender Respiratory/Chest: decreased breath sounds Edema: no edema noted Arm (L), no edema noted Arm (R), no edema noted Leg (L), no edema noted Leg (R), no edema noted Pedal (L), no edema noted Pedal (R), no edema noted Generalized Objective Current Medications Medications (Trade) Dose Ordered Sig/Jennifer Route PRN Reason Start Time Stop Time Status Last Admin Dose Admin Acetaminophen (Tylenol) 650 mg Q6H PRN ORAL Mild Pain/Temp > 100.5 07/09/17 02:30 08/08/17 02:29 Albuterol/ Ipratropium (Albuterol/ Ipratropium) 3 ml Q4H PRN HHN Shortness of Breath 07/09/17 11:15 07/14/17 11:14 Albuterol/ Ipratropium (Albuterol/ Ipratropium) 3 ml Q6HRT HHN 07/09/17 13:00 07/14/17 12:59 07/11/17 12:57 Apixaban (Eliquis) 2.5 mg BID ORAL 07/09/17 09:00 08/08/17 08:59 07/11/17 19:14 Aspirin (ASA) 81 mg DAILY ORAL 07/09/17 09:00 08/08/17 08:59 07/11/17 09:08 Atorvastatin Calcium (Lipitor) 10 mg BEDTIME ORAL 4/12/18 21:00 08/08/17 20:59 07/11/17 21:22 Ceftriaxone Sodium 1 gm/ Dextrose 110 ml @ 220 mls/hr Q24H IVPB 07/09/17 20:00 07/16/17 19:59 07/11/17 21:22 Dextrose (Dextrose 50%) 25 ml STAT PRN IV Hypoglycemia 07/09/17 02:30 08/08/17 02:29 Dextrose (Dextrose 50%) 50 ml STAT PRN IV Hypoglycemia 07/09/17 06:30 08/08/17 02:29 Diphenhydramine HCl (Benadryl) 25 mg Q6H PRN ORAL Itching 07/09/17 02:30 08/08/17 02:29 Fluoxetine HCl (PROzac) 20 mg DAILY ORAL 07/10/17 12:00 08/09/17 11:59 07/11/17 09:09 Furosemide (Lasix) 40 mg DAILY ORAL 07/12/17 09:00 08/11/17 08:59 Hydromorphone HCl (Dilaudid) 0.5 mg Q4H PRN IVP pain 4-10 07/09/17 12:45 07/16/17 02:29 07/09/17 12:51 Insulin Aspart (NovoLOG) BEFORE MEALS AND HS SUBQ 07/09/17 06:30 08/08/17 06:29 07/11/17 21:28 Lorazepam (Ativan) 1 mg Q4H PRN ORAL Agitation 07/10/17 11:00 07/17/17 10:59 Metoprolol Tartrate (Lopressor) 12.5 mg Q12HR ORAL 07/10/17 21:00 08/09/17 20:59 07/11/17 21:29 Nitroglycerin (Ntg) 1 patch Q24H TDERMAL 07/10/17 13:00 08/09/17 12:59 Ondansetron HCl (Zofran) 4 mg Q6H PRN IVP Nausea & Vomiting 07/09/17 02:30 08/08/17 02:29 Polyethylene Glycol (Miralax) 17 gm BEDTIME ORAL 07/09/17 21:00 08/08/17 20:59 07/11/17 21:22 Prednisone (predniSONE) 10 mg DAILY ORAL 07/09/17 09:00 5/12/18 08:59 07/11/17 09:08 Regadenoson (Lexiscan) 0.4 mg ONCE PRN IV . 07/13/17 14:00 07/13/17 23:59 Sitagliptin Phosphate (Januvia) 50 mg ACBREAKFAST ORAL 07/09/17 06:30 08/08/17 06:29 07/11/17 05:54 Tamsulosin HCl (Flomax) 0.4 mg BEDTIME ORAL 07/09/17 21:00 08/08/17 20:59 07/11/17 21:22 Tiotropium [place] (Spiriva Inhaler) 1 puff DAILY INH 07/09/17 09:00 08/08/17 08:59 07/11/17 10:01 Vitamin D (Vitamin D) 1,000 intlu DAILY ORAL 07/09/17 09:00 08/08/17 08:59 07/11/17 09:09 Item Value Date Time Bedside Blood Glucose 181 mg/dl H 07/11/17 2128 Bedside Blood Glucose 213 mg/dl H 07/11/17 1729 Bedside Blood Glucose 253 mg/dl H 07/11/17 1235 Bedside Blood Glucose 109 mg/dl 07/11/17 0630 TANVIR HARRISON Jul 12, 2017 06:29
[2017-07-12] MEDS: NovoLOG Insulin Flexpen SUBQ SCH ×7 (06:49→20:51)
[2017-07-12] MEDS: sitaGLIPtin 50mg tab ORAL SCH (06:50)
[2017-07-12 08:00] VITALS: BP 100/49
[2017-07-12] MEDS ORDERED: Furosemide 40mg tab ORAL SCH (09:00)
[2017-07-12] MEDS: Metoprolol Tartrate 12.5mg TAB ORAL SCH ×2 (09:00→20:47)
--- NOTE | 2017-07-12 09:28 | Pulmonology Progress Note ---
Assessment/Plan Assessment/Plan 1. Pulmonary edema. 2. Chronic kidney disease. 3. Chronic obstructive pulmonary disease. DISCUSSION: Continue medications. She may benefit from dialysis, however, will defer to her primary physician. At this time, she may be back to her baseline. Continue ceftriaxone, which is appropriate empiric therapy for suspected bronchitis. Subjective Interval Events: Troponin 0.8; feels well Constitutional: Reports: no symptoms HEENT: Repors: no symptoms Respiratory: Reports: no symptoms Cardiovascular: Reports: no symptoms Gastrointestinal/Abdominal: Reports: no symptoms Genitourinary: Reports: no symptoms Allergies: Coded Allergies: No Known Allergies (Unverified , 07/08/17) Objective Last 24 Hour Vital Signs Date Time Temp Pulse Resp B/P (MAP) Pulse Ox O2 Delivery O2 Flow Rate FiO2 07/12/17 08:00 97.3 66 16 100/49 95 Nasal Cannula 3.0 97.3 07/12/17 07:19 82 20 95 Nasal Cannula 3.0 32 07/12/17 07:10 91 Nasal Cannula 3.0 32 07/12/17 07:10 Nasal Cannula 3.0 32 07/12/17 07:10 84 20 91 Nasal Cannula 3.0 32 07/12/17 04:00 97.0 69 16 115/65 95 Nasal Cannula 3.0 97.0 07/12/17 04:00 97 07/12/17 00:45 Nasal Cannula 07/12/17 00:44 Nasal Cannula 07/12/17 00:00 89 07/12/17 00:00 97.7 63 16 109/60 96 Nasal Cannula 3.0 97.7 07/11/17 21:29 95 115/61 07/11/17 20:32 Nasal Cannula 07/11/17 20:32 Nasal Cannula 07/11/17 20:31 94 Nasal Cannula 3.0 32 07/11/17 20:31 Nasal Cannula 3.0 32 07/11/17 20:00 Nasal Cannula 3.0 07/11/17 20:00 87 07/11/17 20:00 97.9 95 16 115/61 94 97.9 07/11/17 16:00 97.1 83 18 120/75 98 Room Air 97.1 07/11/17 16:00 97 07/11/17 13:20 80 20 97 Nasal Cannula 4.0 36 07/11/17 13:00 109/53 07/11/17 12:57 75 18 96 Nasal Cannula 4.0 36 07/11/17 12:00 86 07/11/17 12:00 97.1 95 17 110/51 99 Room Air 97.1 07/11/17 10:01 72 19 97 Nasal Cannula 4.0 36 07/11/17 10:01 72 19 97 Nasal Cannula 4.0 36 Intake and Output 07/11/17 07/12/17 19:00 07:00 Intake Total 348 ml 350 ml Output Total 600 ml 800 ml Balance -252 ml -450 ml Intake Oral 348 ml 240 ml IV Total 110 ml Output Urine Total 600 ml 800 ml General Appearance: no acute distress HEENT: normocephalic Respiratory/Chest: chest wall non-tender, lungs clear Cardiovascular: normal peripheral pulses, normal rate Abdomen: normal bowel sounds Laboratory Tests 07/12/17 00:10: Stool Occult Blood [Pending] Current Medications Medications (Trade) Dose Ordered Sig/Jennifer Route PRN Reason Start Time Stop Time Status Last Admin Dose Admin Acetaminophen (Tylenol) 650 mg Q6H PRN ORAL Mild Pain/Temp > 100.5 07/09/17 02:30 08/08/17 02:29 Albuterol/ Ipratropium (Albuterol/ Ipratropium) 3 ml Q4H PRN HHN Shortness of Breath 07/09/17 11:15 07/14/17 11:14 Albuterol/ Ipratropium (Albuterol/ Ipratropium) 3 ml Q6HRT HHN 07/09/17 13:00 07/14/17 12:59 07/12/17 07:15 Apixaban (Eliquis) 2.5 mg BID ORAL 07/09/17 09:00 08/08/17 08:59 07/11/17 19:14 Aspirin (ASA) 81 mg DAILY ORAL 07/09/17 09:00 08/08/17 08:59 07/11/17 09:08 Atorvastatin Calcium (Lipitor) 10 mg BEDTIME ORAL 07/09/17 21:00 08/08/17 20:59 07/11/17 21:22 Ceftriaxone Sodium 1 gm/ Dextrose 110 ml @ 220 mls/hr Q24H IVPB 07/09/17 20:00 07/16/17 19:59 07/11/17 21:22 Dextrose (Dextrose 50%) 25 ml STAT PRN IV Hypoglycemia 07/09/17 02:30 08/08/17 02:29 Dextrose (Dextrose 50%) 25 ml STAT PRN IV Hypoglycemia 07/12/17 06:30 08/11/17 06:29 Dextrose (Dextrose 50%) 50 ml STAT PRN IV Hypoglycemia 07/09/17 06:30 08/08/17 02:29 Dextrose (Dextrose 50%) 50 ml STAT PRN IV Hypoglycemia 07/12/17 06:30 08/11/17 06:29 Diphenhydramine HCl (Benadryl) 25 mg Q6H PRN ORAL Itching 07/09/17 02:30 08/08/17 02:29 Fluoxetine HCl (PROzac) 20 mg DAILY ORAL 07/10/17 12:00 08/09/17 11:59 07/11/17 09:09 Furosemide (Lasix) 40 mg DAILY ORAL 07/12/17 09:00 08/11/17 08:59 Hydromorphone HCl (Dilaudid) 0.5 mg Q4H PRN IVP pain 4-10 07/09/17 12:45 07/16/17 02:29 07/09/17 12:51 Insulin Aspart (NovoLOG) BEFORE MEALS AND HS SUBQ 07/09/17 06:30 08/08/17 06:29 07/12/17 06:49 Insulin Aspart (NovoLOG) 4 units NOVOTIAC SUBQ 07/12/17 06:30 08/11/17 06:29 07/12/17 06:50 Insulin Detemir (Levemir) 8 units DAILY SUBQ 07/12/17 09:00 08/11/17 08:59 Lorazepam (Ativan) 1 mg Q4H PRN ORAL Agitation 07/10/17 11:00 07/17/17 10:59 Metoprolol Tartrate (Lopressor) 12.5 mg Q12HR ORAL 07/10/17 21:00 08/09/17 20:59 07/11/17 21:29 Nitroglycerin (Ntg) 1 patch Q24H TDERMAL 07/10/17 13:00 08/09/17 12:59 Ondansetron HCl (Zofran) 4 mg Q6H PRN IVP Nausea & Vomiting 07/09/17 02:30 08/08/17 02:29 Polyethylene Glycol (Miralax) 17 gm BEDTIME ORAL 07/09/17 21:00 08/08/17 20:59 07/11/17 21:22 Prednisone (predniSONE) 10 mg DAILY ORAL 07/09/17 09:00 08/08/17 08:59 07/11/17 09:08 Regadenoson (Lexiscan) 0.4 mg ONCE PRN IV . 07/13/17 14:00 07/13/17 23:59 Sitagliptin Phosphate (Januvia) 50 mg ACBREAKFAST ORAL 07/09/17 06:30 08/08/17 06:29 07/12/17 06:50 Tamsulosin HCl (Flomax) 0.4 mg BEDTIME ORAL 07/09/17 21:00 08/08/17 20:59 07/11/17 21:22 Tiotropium Stephens (Spiriva Inhaler) 1 puff DAILY INH 07/09/17 09:00 08/08/17 08:59 07/12/17 09:24 Vitamin D (Vitamin D) 1,000 intlu DAILY ORAL 07/09/17 09:00 08/08/17 08:59 07/11/17 09:09 Rodolfo Medley MD Jul 12, 2017 09:28
[2017-07-12] MEDS: Aspirin Baby 81mg ORAL SCH (09:45)
[2017-07-12] MEDS: Vitamin D 1000 IU Tab ORAL SCH (09:45)
[2017-07-12] MEDS: Eliquis 2.5mg tablet ORAL SCH ×2 (09:46→17:33)
[2017-07-12] MEDS: Levemir Flexpen SUBQ SCH (09:49)
--- NOTE | 2017-07-12 11:00 | Consultation ---
DATE OF CONSULTATION: 07/11/2017 ENDOCRINOLOGY CONSULTATION CONSULTING PHYSICIAN: Vikram Leary M.D. REFERRING PHYSICIAN: Bj Ryan M.D. REASON FOR CONSULTATION: Diabetes management. HISTORY OF PRESENT ILLNESS: It is important to note that history is obtained from the review of the medical records at [facility] as well as [facility]. The patient is followed by my associate, Dr. Jamil Chaves , as an outpatient for the management of diabetes. The patient is an 82-year-old female, who has diabetes managed as an outpatient by Dr. Jamil Chaves. Her outpatient regimen constituted of insulin Tresiba 8 units daily as well as insulin Humalog 12 units before each meal previously when she was up trending, which was discontinued. The patient presented to the hospital admitted on July 09, 2017, for generalized weakness and swelling. She has past medical history of coronary artery disease, CHF, hypertension, and COPD on home O2 and currently the patient is on prednisone, glucose is elevated, and Endocrinology was consulted in order to assist in management of diabetes. Her appetite has decreased. Glucose is running over 200. PAST MEDICAL HISTORY: 1. Coronary artery disease. 2. Diabetes as above. 3. CHF. 4. Hypertension. 5. COPD on home O2. Followed by Dr. Xavi Lemus, as an outpatient. 6. CKD, stage 3. 7. DVT on Eliquis. MEDICATIONS: Reviewed and reconciled. SOCIAL HISTORY: Remote history of smoking. No alcohol. No drug use. REVIEW OF SYSTEMS: A 12-point review of systems was performed and pertinent positives and negatives are mentioned in present illness. LABORATORY VALUES: WBC 11, hemoglobin 10, hematocrit 31, and platelets of 169. Sodium 142, potassium 3.5, chloride 102, bicarbonate 29, BUN 71, creatinine 2.6, and glucose of 110. Uric acid of 8.6. TSH is normal at 1.89. PHYSICAL EXAMINATION: GENERAL: She is awake. VITAL SIGNS: Blood pressure is 109/60, heart rate 89, temperature 97.7, and respiratory rate 16. HEENT: Pupils are equal and reactive to light and accommodation. Sclerae are anicteric. NECK: No JVD. HEART: Regular. LUNGS: Scattered rhonchi. ABDOMEN: Soft. Bowel sounds positive. EXTREMITIES: No clubbing, cyanosis, or edema. DIAGNOSES: 1. Elevated troponin. 2. Acute on chronic CHF. 3. COPD. 4. CKD. 5. Diabetes, out of control. DISCUSSION: 1. Continue Januvia 50 mg daily. 2. Add Levemir 8 units daily. 3. Add NovoLog 4 units before each meal. 4. NovoLog sliding scale before meals and at bedtime. 5. Further adjustment according to blood glucose values. 6. I will follow the patient during the hospital stay. Vikram Leary M.D. DR: GINA JOB#: [id number] CC:
[2017-07-12 12:00] VITALS: BP 119/49
--- NOTE | 2017-07-12 12:51 | General Progress Note ---
Assessment/Plan Problem List: (1) Elevated troponin I level ICD Codes: R74.8 - Abnormal levels of other serum enzymes SNOMED: 055194680 (2) Acute on chronic diastolic heart failure ICD Codes: I50.33 - Acute on chronic diastolic (congestive) heart failure SNOMED: 668205390 (3) H/O deep venous thrombosis ICD Codes: Z86.718 - Personal history of other venous thrombosis and embolism SNOMED: 798921169 (4) CKD stage 3 (5) Anemia in chronic kidney disease ICD Codes: N18.9 - Chronic kidney disease, unspecified; D63.1 - Anemia in chronic kidney disease SNOMED: 609633541, 235571856 (6) Diabetic nephropathy ICD Codes: E11.21 - Type 2 diabetes mellitus with diabetic nephropathy SNOMED: 64560430, 744389129 (7) JUDSON on CKD stage 3 (8) DM2 (diabetes mellitus, type 2) ICD Codes: E11.9 - Type 2 diabetes mellitus without complications SNOMED: 48431201 Qualifiers: Status: stable Assessment/Plan Renal consulted Lasix 40mg IV daily -- changed to lasix 40mg PO qd Strict I/O's, daily weights Continue payne per renal --> urinary retention therefore keep payne in for now and diurese Check urine studies, renal U/S --> mild right hydronephrosis with bilateral renal cysts and medical renal disease trend Cr 3.3 --> 2.7 Hold nephrotoxic meds Empiric ceftriaxone for possible UTI and bronchitis F/u urine cx Cardiology consulted Trend trop 0.1 --> 2.2 --> 0.7 --> 0.8. Troponin leak likely secondary to acute renal failure. Nuclear stress test recommended per cards but patient and DPOA refusing. Check TTE -- 50-55% EF venous u/s - chronic bilateral DVTs Cont eliquis for chronic DVTs Add lipitor Endo consulted Check A1C 6.9 +levemir 8 units qhs +novolog 4 units TID AC meals Continue obiuvshahla Pulm consulted Cont O2, titrate to SpO2 88-92% Cont home prednisone 10mg daily Cont CTX for bronchitis Duonebs ATC and PRN Cont home meds Pain control, bowel regimen Supportive care DC likely Thursday. DVT Prophylaxis: Eliquis Code Status: Full Hospital Classification Declaration: Based on this initial evaluation, and depending on the patient's clinical course, I anticipate that this patient will require hospitalization for 2-3 days for JUDSON, generalized weakness, and close respiratory/hemodynamic monitoring. Disposition: Once the patient is stable to leave the hospital, I anticipate the patient will likely be discharged to the following environment: home with HH. Patient refusing SNF I spent 32 minutes on this patient's case, and >50% was dedicated to counseling and/or care coordination. Discussed with patient/family, nursing staff, SW/CM, [ ] regarding clinical status, treatment course, and disposition planning. Time of note may not reflect time of encounter. Subjective Date patient seen: Jul 12, 2017 Allergies: Coded Allergies: No Known Allergies (Unverified , 07/08/17) Subjective - AM labs pending - increased swelling to right ankle today - refusing stress test - AF, HDS Objective Last 24 Hour Vital Signs Date Time Temp Pulse Resp B/P (MAP) Pulse Ox O2 Delivery O2 Flow Rate FiO2 07/12/17 09:34 76 18 96 Nasal Cannula 4.0 36 07/12/17 09:30 74 18 98 Nasal Cannula 4.0 36 07/12/17 09:00 74 100/49 07/12/17 08:00 97.3 66 16 100/49 95 Nasal Cannula 3.0 97.3 07/12/17 08:00 73 07/12/17 07:19 82 20 95 Nasal Cannula 3.0 32 07/12/17 07:10 91 Nasal Cannula 3.0 32 07/12/17 07:10 Nasal Cannula 3.0 32 07/12/17 07:10 84 20 91 Nasal Cannula 3.0 32 07/12/17 04:00 97.0 69 16 115/65 95 Nasal Cannula 3.0 97.0 07/12/17 04:00 97 07/12/17 00:45 Nasal Cannula 07/12/17 00:44 Nasal Cannula 07/12/17 00:00 89 07/12/17 00:00 97.7 63 16 109/60 96 Nasal Cannula 3.0 97.7 07/11/17 21:29 95 115/61 07/11/17 20:32 Nasal Cannula 07/11/17 20:32 Nasal Cannula 07/11/17 20:31 94 Nasal Cannula 3.0 32 07/11/17 20:31 Nasal Cannula 3.0 32 07/11/17 20:00 Nasal Cannula 3.0 07/11/17 20:00 87 07/11/17 20:00 97.9 95 16 115/61 94 97.9 07/11/17 16:00 97.1 83 18 120/75 98 Room Air 97.1 07/11/17 16:00 97 07/11/17 13:20 80 20 97 Nasal Cannula 4.0 36 07/11/17 13:00 109/53 07/11/17 12:57 75 18 96 Nasal Cannula 4.0 36 Intake and Output 07/11/17 07/12/17 19:00 07:00 Intake Total 348 ml 350 ml Output Total 600 ml 800 ml Balance -252 ml -450 ml Intake Oral 348 ml 240 ml IV Total 110 ml Output Urine Total 600 ml 800 ml Laboratory Tests Test 07/12/17 00:10 Stool Occult Blood Pending Laboratory Tests 07/12/17 00:10: Stool Occult Blood [Pending] Height (Feet): 5 Height (Inches): 2.00 Weight (Pounds): 166 General Appearance: no apparent distress, alert EENT: PERRL/EOMI, normal ENT inspection Neck: non-tender, normal alignment, supple Cardiovascular: normal peripheral pulses, normal rate, regular rhythm Respiratory/Chest: chest wall non-tender, lungs clear, normal breath sounds Abdomen: normal bowel sounds, non tender, soft Genitourinary/Rectal: other - +payne Edema: severe edema Neurologic: business control specialist II-XII grossly normal, no motor/sensory deficits, alert, oriented x 3 Skin: normal pigmentation, warm/dry Julisa Clinton N.P. Jul 12, 2017 12:51
[2017-07-12] MEDS: Nitroglycerin Patch 0.4mg TDERMAL SCH (13:00)
[2017-07-12 13:49] LABS: HEMOGLOBIN 10.5 G/DL (12.0-16.0); MEAN CORPUSCULAR VOLUME 97 FL (80-99); PLATELET COUNT 166 K/UL (150-450); RED BLOOD COUNT 3.29 M/UL (4.20-5.40); RED CELL DISTRIBUTION WIDTH 13.1 % (11.6-14.8); WHITE BLOOD COUNT 10.8 K/UL (4.8-10.8)
[2017-07-12 14:07] LABS: ANION GAP 5 mmol/L (5-15); BLOOD UREA NITROGEN 61 mg/dL (7-18); CALCIUM 9.1 MG/DL (8.5-10.1); CARBON DIOXIDE 37 MMOL/L (21-32); CHLORIDE 103 MMOL/L (98-107); CREATININE 2.4 MG/DL (0.55-1.30); POTASSIUM 3.8 MMOL/L (3.5-5.1); SODIUM 145 MMOL/L (136-145)
--- NOTE | 2017-07-12 15:31 | Nephrology Progress Note ---
Assessment/Plan Problem List: (1) CKD (chronic kidney disease) (2) COPD on home O2 (3) Anemia in chronic kidney disease (4) Elevated troponin I level Assessment Renal failure- Know stage 3 CKD since Feb 2016- Cr lower after payne now 2.4 BP lower Diabetic Nephropathy Exacerbation COPD Anemia CHF ?UTI Plan adjust bp meds Payne in 24 H urine studies noted BP and BS control Echo and D[place] results noted pulmonary support Cardiac support ASA , DC in am? [place] Impression: 837 mL bladder volume. Payne catheter reportedly present, but the latter is not visible, catheter presumably malpositioned. Increased left renal echogenicity, consistent with medical renal disease Mild right hydronephrosis, possibly but not definitively related to the lack of bladder emptying Incidental finding bilateral renal cysts. Subjective ROS Limited/Unobtainable: No Objective Objective Last 24 Hour Vital Signs Date Time Temp Pulse Resp B/P (MAP) Pulse Ox O2 Delivery O2 Flow Rate FiO2 07/12/17 13:29 64 20 94 Nasal Cannula 2.0 28 07/12/17 13:20 60 20 90 Nasal Cannula 2.0 28 07/12/17 13:00 100/49 07/12/17 12:00 76 07/12/17 12:00 98.1 80 18 119/49 91 Nasal Cannula 3.0 98.1 07/12/17 09:34 76 18 96 Nasal Cannula 4.0 36 07/12/17 09:30 74 18 98 Nasal Cannula 4.0 36 07/12/17 09:00 74 100/49 07/12/17 08:00 97.3 66 16 100/49 95 Nasal Cannula 3.0 97.3 07/12/17 08:00 73 07/12/17 07:19 82 20 95 Nasal Cannula 3.0 32 07/12/17 07:10 91 Nasal Cannula 3.0 32 07/12/17 07:10 Nasal Cannula 3.0 32 07/12/17 07:10 84 20 91 Nasal Cannula 3.0 32 07/12/17 04:00 97.0 69 16 115/65 95 Nasal Cannula 3.0 97.0 07/12/17 04:00 97 07/12/17 00:45 Nasal Cannula 07/12/17 00:44 Nasal Cannula 07/12/17 00:00 89 07/12/17 00:00 97.7 63 16 109/60 96 Nasal Cannula 3.0 97.7 07/11/17 21:29 95 115/61 07/11/17 20:32 Nasal Cannula 07/11/17 20:32 Nasal Cannula 07/11/17 20:31 94 Nasal Cannula 3.0 32 07/11/17 20:31 Nasal Cannula 3.0 32 07/11/17 20:00 Nasal Cannula 3.0 07/11/17 20:00 87 07/11/17 20:00 97.9 95 16 115/61 94 97.9 07/11/17 16:00 97.1 83 18 120/75 98 Room Air 97.1 07/11/17 16:00 97 Intake and Output 07/11/17 07/12/17 19:00 07:00 Intake Total 348 ml 350 ml Output Total 600 ml 800 ml Balance -252 ml -450 ml Intake Oral 348 ml 240 ml IV Total 110 ml Output Urine Total 600 ml 800 ml Laboratory Tests 07/12/17 00:10: Stool Occult Blood Negative 07/12/17 13:30: White Blood Count 10.8, Red Blood Count 3.29L, Hemoglobin 10.5L, Hematocrit 32.0L, Mean Corpuscular Volume 97, Mean Corpuscular Hemoglobin 32.0H, Mean Corpuscular Hemoglobin Concent 32.9, Red Cell Distribution Width 13.1, Platelet Count 166, Mean Platelet Volume 7.3, Neutrophils (%) (Auto) , Lymphocytes (%) ( Auto) , Monocytes (%) (Auto) , Eosinophils (%) (Auto) , Basophils (%) (Auto) , Differential Total Cells Counted 100, Neutrophils % (Manual) 89H, Lymphocytes % (Manual) 6L, Monocytes % (Manual) 4, Eosinophils % (Manual) 1, Basophils % ( Manual) 0, Band Neutrophils 0, Platelet Estimate Adequate, Platelet Morphology Normal, Anisocytosis 1+, Sodium Level 145, Potassium Level 3.8, Chloride Level 103, Carbon Dioxide Level 37H, Anion Gap 5, Blood Urea Nitrogen 61H, Creatinine 2.4H, Estimat Glomerular Filtration Rate , Glucose Level 149H, Calcium Level 9.1 Height (Feet): 5 Height (Inches): 2.00 Weight (Pounds): 166 General Appearance: no apparent distress Cardiovascular: normal rate Respiratory/Chest: decreased breath sounds Abdomen: soft Genitourinary/Rectal: other - payne Extremities: other - minimal ankle edema LISETH HERNANDEZ Jul 12, 2017 15:31
[2017-07-12 16:00] VITALS: BP 101/42
[2017-07-12 20:00] VITALS: BP 122/51
[2017-07-12] MEDS: cefTRIAXone 1 GM in D5W 110 ML IVPB SCH (20:46)
[2017-07-12] MEDS: Tamsulosin 0.4mg cap ORAL SCH (20:47)
[2017-07-12] MEDS: Miralax 17gm pkt ORAL SCH (20:47)
[2017-07-13] VITALS: BP 121/73
[2017-07-13] MEDS: Albuterol/Ipratropium 3ml neb HHN SCH ×3 (01:00→13:44)
--- NOTE | 2017-07-13 01:04 | General Progress Note ---
Assessment/Plan Assessment/Plan 1. Anemia due to underlying chronic disease, potentially secondary to hemodilution. --> Continue to closely monitor. --> Anemia workup completed and reviewed. --> Iron 55, TIBC 230, Ferritin 175, B12 1210, Folate 44, TSH 1.9 --> Blood transfusion not needed unless symptomatic or hemoglobin <7 --> H/H stable currently. 2. Leukocytosis, potentially secondary to reactive process versus underlying infection. --> Consider steroids as well. --> Monitor for improvement. 3. Pneumonia, is on broad-spectrum antibiotics. --> Continue to closely monitor. 4. Dehydration, currently receiving IV fluids as needed per primary team. 5. Troponin elevation, to be seen by Cardiology Service. --> Levels downtrending. 6. Acute kidney injury with creatinine of 3.3, to be seen by Dr. Asencio of Nephrology Service. We do not have the patient's baseline. --> Cr downtrending and improving. 7. Hypertension. 8. Chronic bilateral lower extremity DVT. On apixaban. --> Some edema noted. Subjective Date patient seen: Jul 12, 2017 Constitutional: Denies: no symptoms, chills, diaphoresis, fever, malaise, weakness, other HEENT: Denies: no symptoms, eye pain, blurred vision, tearing, double vision, ear pain, ear discharge, nose pain, nose congestion, throat pain, throat swelling, mouth pain, mouth swelling, other Cardiovascular: Denies: no symptoms, chest pain, edema, irregular heart rate, lightheadedness, palpitations, syncope, other Respiratory: Denies: no symptoms, cough, orthopnea, shortness of breath, SOB with excertion, SOB at rest, sputum, stridor, wheezing, other Gastrointestinal/Abdominal: Denies: no symptoms, abdomen distended, abdominal pain, black stools, tarry stools, blood in stool, constipated, diarrhea, difficulty swallowing, nausea, poor appetite, poor fluid intake, rectal bleeding , vomiting, other Genitourinary: Denies: no symptoms, burning, discharge, frequency, flank pain, hematuria, incontinence, pain, urgency, other Neurologic/Psychiatric: Denies: no symptoms, anxiety, depressed, emotional problems, headache, numbness, paresthesia, pre-existing deficit, seizure, tingling, tremors, weakness, other Hematologic/Lymphatic: Reports: anemia Allergies: Coded Allergies: No Known Allergies (Unverified , 07/08/17) Subjective H/H stable. No hematochezia. Some edema lower extremities. Objective Last 24 Hour Vital Signs Date Time Temp Pulse Resp B/P (MAP) Pulse Ox O2 Delivery O2 Flow Rate FiO2 07/12/17 20:47 75 122/51 07/12/17 20:00 86 07/12/17 20:00 98.2 75 20 122/51 99 Room Air 98.2 07/12/17 19:47 68 18 97 Nasal Cannula 2.0 28 07/12/17 19:37 64 18 94 Nasal Cannula 2.0 28 07/12/17 19:37 Nasal Cannula 2.0 28 07/12/17 19:37 94 Nasal Cannula 2.0 28 07/12/17 16:00 100 07/12/17 16:00 97.9 83 17 101/42 91 Nasal Cannula 3.0 97.9 07/12/17 13:29 64 20 94 Nasal Cannula 2.0 28 07/12/17 13:20 60 20 90 Nasal Cannula 2.0 28 07/12/17 13:00 100/49 07/12/17 12:00 76 07/12/17 12:00 98.1 80 18 119/49 91 Nasal Cannula 3.0 98.1 07/12/17 09:34 76 18 96 Nasal Cannula 4.0 36 07/12/17 09:30 74 18 98 Nasal Cannula 4.0 36 07/12/17 09:00 74 100/49 07/12/17 08:00 97.3 66 16 100/49 95 Nasal Cannula 3.0 97.3 07/12/17 08:00 73 07/12/17 07:19 82 20 95 Nasal Cannula 3.0 32 07/12/17 07:10 91 Nasal Cannula 3.0 32 07/12/17 07:10 Nasal Cannula 3.0 32 07/12/17 07:10 84 20 91 Nasal Cannula 3.0 32 07/12/17 04:00 97.0 69 16 115/65 95 Nasal Cannula 3.0 97.0 07/12/17 04:00 97 Intake and Output 07/12/17 07/13/17 19:00 07:00 Intake Total 556 ml Output Total 200 ml Balance 356 ml Intake Oral 556 ml Output Urine Total 200 ml Laboratory Tests 07/12/17 13:30: White Blood Count 10.8, Red Blood Count 3.29L, Hemoglobin 10.5L, Hematocrit 32.0L, Mean Corpuscular Volume 97, Mean Corpuscular Hemoglobin 32.0H, Mean Corpuscular Hemoglobin Concent 32.9, Red Cell Distribution Width 13.1, Platelet Count 166, Mean Platelet Volume 7.3, Neutrophils (%) (Auto) , Lymphocytes (%) ( Auto) , Monocytes (%) (Auto) , Eosinophils (%) (Auto) , Basophils (%) (Auto) , Differential Total Cells Counted 100, Neutrophils % (Manual) 89H, Lymphocytes % (Manual) 6L, Monocytes % (Manual) 4, Eosinophils % (Manual) 1, Basophils % ( Manual) 0, Band Neutrophils 0, Platelet Estimate Adequate, Platelet Morphology Normal, Anisocytosis 1+, Sodium Level 145, Potassium Level 3.8, Chloride Level 103, Carbon Dioxide Level 37H, Anion Gap 5, Blood Urea Nitrogen 61H, Creatinine 2.4H, Estimat Glomerular Filtration Rate , Glucose Level 149H, Calcium Level 9.1 Height (Feet): 5 Height (Inches): 2.00 Weight (Pounds): 166 General Appearance: confused Neck: normal alignment Cardiovascular: normal rate Respiratory/Chest: lungs clear Abdomen: soft GEORGE TUCKER Jul 13, 2017 01:04
[2017-07-13 04:00] VITALS: BP 116/58
--- NOTE | 2017-07-13 06:23 | General Progress Note ---
Assessment/Plan Problem List: (1) CAD (coronary artery disease) ICD Codes: I25.10 - Atherosclerotic heart disease of [place] coronary artery without angina pectoris SNOMED: 14907400 (2) COPD on home O2 (3) CKD stage 3 (4) DM2 (diabetes mellitus, type 2) ICD Codes: E11.9 - Type 2 diabetes mellitus without complications SNOMED: 29185456 Qualifiers: Assessment/Plan continue Levemir 8 units daily continue Novolog 4 units ac tid continue NISS continue Januvia 50 mg daily Subjective Allergies: Coded Allergies: No Known Allergies (Unverified , 07/08/17) All Systems: reviewed and negative except above Subjective events noted - interval notes reviewed Objective Last 24 Hour Vital Signs Date Time Temp Pulse Resp B/P (MAP) Pulse Ox O2 Delivery O2 Flow Rate FiO2 07/13/17 04:00 71 07/13/17 04:00 97.7 67 18 116/58 96 Nasal Cannula 3.0 97.7 07/13/17 01:20 Nasal Cannula 2.0 28 07/13/17 01:20 Nasal Cannula 2.0 28 07/13/17 00:00 97.9 78 19 121/73 94 Nasal Cannula 3.0 97.9 07/13/17 00:00 74 07/12/17 20:47 75 122/51 07/12/17 20:00 86 07/12/17 20:00 98.2 75 20 122/51 99 Room Air 98.2 07/12/17 19:47 68 18 97 Nasal Cannula 2.0 28 07/12/17 19:37 64 18 94 Nasal Cannula 2.0 28 07/12/17 19:37 Nasal Cannula 2.0 28 07/12/17 19:37 94 Nasal Cannula 2.0 28 07/12/17 16:00 100 07/12/17 16:00 97.9 83 17 101/42 91 Nasal Cannula 3.0 97.9 07/12/17 13:29 64 20 94 Nasal Cannula 2.0 28 07/12/17 13:20 60 20 90 Nasal Cannula 2.0 28 07/12/17 13:00 100/49 07/12/17 12:00 76 07/12/17 12:00 98.1 80 18 119/49 91 Nasal Cannula 3.0 98.1 07/12/17 09:34 76 18 96 Nasal Cannula 4.0 36 07/12/17 09:30 74 18 98 Nasal Cannula 4.0 36 07/12/17 09:00 74 100/49 07/12/17 08:00 97.3 66 16 100/49 95 Nasal Cannula 3.0 97.3 07/12/17 08:00 73 07/12/17 07:19 82 20 95 Nasal Cannula 3.0 32 07/12/17 07:10 91 Nasal Cannula 3.0 32 07/12/17 07:10 Nasal Cannula 3.0 32 07/12/17 07:10 84 20 91 Nasal Cannula 3.0 32 Intake and Output 07/12/17 07/13/17 19:00 07:00 Intake Total 556 ml 110 ml Output Total 200 ml Balance 356 ml 110 ml Intake Oral 556 ml IV Total 110 ml Output Urine Total 200 ml Laboratory Tests 07/12/17 13:30: White Blood Count 10.8, Red Blood Count 3.29L, Hemoglobin 10.5L, Hematocrit 32.0L, Mean Corpuscular Volume 97, Mean Corpuscular Hemoglobin 32.0H, Mean Corpuscular Hemoglobin Concent 32.9, Red Cell Distribution Width 13.1, Platelet Count 166, Mean Platelet Volume 7.3, Neutrophils (%) (Auto) , Lymphocytes (%) ( Auto) , Monocytes (%) (Auto) , Eosinophils (%) (Auto) , Basophils (%) (Auto) , Differential Total Cells Counted 100, Neutrophils % (Manual) 89H, Lymphocytes % (Manual) 6L, Monocytes % (Manual) 4, Eosinophils % (Manual) 1, Basophils % ( Manual) 0, Band Neutrophils 0, Platelet Estimate Adequate, Platelet Morphology Normal, Anisocytosis 1+, Sodium Level 145, Potassium Level 3.8, Chloride Level 103, Carbon Dioxide Level 37H, Anion Gap 5, Blood Urea Nitrogen 61H, Creatinine 2.4H, Estimat Glomerular Filtration Rate , Glucose Level 149H, Calcium Level 9.1 Height (Feet): 5 Height (Inches): 2.00 Weight (Pounds): 166 General Appearance: no apparent distress Neck: normal alignment Cardiovascular: normal rate Respiratory/Chest: decreased breath sounds Abdomen: normal bowel sounds Objective Current Medications Medications (Trade) Dose Ordered Sig/Jennifer Route PRN Reason Start Time Stop Time Status Last Admin Dose Admin Acetaminophen (Tylenol) 650 mg Q6H PRN ORAL Mild Pain/Temp > 100.5 07/09/17 02:30 08/08/17 02:29 Albuterol/ Ipratropium (Albuterol/ Ipratropium) 3 ml Q4H PRN HHN Shortness of Breath 07/09/17 11:15 07/14/17 11:14 Albuterol/ Ipratropium (Albuterol/ Ipratropium) 3 ml Q6HRT HHN 07/09/17 13:00 07/14/17 12:59 07/12/17 19:36 Apixaban (Eliquis) 2.5 mg BID ORAL 07/09/17 09:00 08/08/17 08:59 07/12/17 17:33 Aspirin (ASA) 81 mg DAILY ORAL 07/09/17 09:00 08/08/17 08:59 07/12/17 09:45 Atorvastatin Calcium (Lipitor) 10 mg BEDTIME ORAL 07/09/17 21:00 08/08/17 20:59 07/12/17 20:47 Ceftriaxone Sodium 1 gm/ Dextrose 110 ml @ 220 mls/hr Q24H IVPB 07/09/17 20:00 07/16/17 19:59 07/12/17 20:46 Dextrose (Dextrose 50%) 25 ml STAT PRN IV Hypoglycemia 07/09/17 02:30 08/08/17 02:29 Dextrose (Dextrose 50%) 25 ml STAT PRN IV Hypoglycemia 07/12/17 06:30 08/11/17 06:29 Dextrose (Dextrose 50%) 50 ml STAT PRN IV Hypoglycemia 07/09/17 06:30 08/08/17 02:29 Dextrose (Dextrose 50%) 50 ml STAT PRN IV Hypoglycemia 07/12/17 06:30 08/11/17 06:29 Diphenhydramine HCl (Benadryl) 25 mg Q6H PRN ORAL Itching 07/09/17 02:30 08/08/17 02:29 Fluoxetine HCl (PROzac) 20 mg DAILY ORAL 07/10/17 12:00 08/09/17 11:59 07/12/17 09:45 Insulin Aspart (NovoLOG) BEFORE MEALS AND HS SUBQ 07/09/17 06:30 08/08/17 06:29 4/15/18 20:51 Insulin Aspart (NovoLOG) 4 units NOVOTIAC SUBQ 07/12/17 06:30 08/11/17 06:29 07/12/17 17:30 Insulin Detemir (Levemir) 8 units DAILY SUBQ 07/12/17 09:00 08/11/17 08:59 07/12/17 09:49 Lorazepam (Ativan) 1 mg Q4H PRN ORAL Agitation 07/10/17 11:00 07/17/17 10:59 Metoprolol Tartrate (Lopressor) 12.5 mg Q12HR ORAL 07/12/17 21:00 08/09/17 20:59 07/12/17 20:47 Ondansetron HCl (Zofran) 4 mg Q6H PRN IVP Nausea & Vomiting 07/09/17 02:30 08/08/17 02:29 Polyethylene Glycol (Miralax) 17 gm BEDTIME ORAL 07/09/17 21:00 08/08/17 20:59 07/12/17 20:47 Prednisone (predniSONE) 10 mg DAILY ORAL 07/09/17 09:00 08/08/17 08:59 07/12/17 09:45 Regadenoson (Lexiscan) 0.4 mg ONCE PRN IV . 07/13/17 14:00 07/13/17 23:59 Sitagliptin Phosphate (Januvia) 50 mg ACBREAKFAST ORAL 07/09/17 06:30 08/08/17 06:29 07/12/17 06:50 Tamsulosin HCl (Flomax) 0.4 mg BEDTIME ORAL 07/09/17 21:00 08/08/17 20:59 07/12/17 20:47 Tiotropium [place] (Spiriva Inhaler) 1 puff DAILY INH 07/09/17 09:00 08/08/17 08:59 07/12/17 09:24 Vitamin D (Vitamin D) 1,000 intlu DAILY ORAL 07/09/17 09:00 08/08/17 08:59 07/12/17 09:45 Item Value Date Time Bedside Blood Glucose 198 mg/dl H 07/12/17 2100 Bedside Blood Glucose 209 mg/dl H 07/12/17 1730 Bedside Blood Glucose 178 mg/dl H 07/12/17 1215 Bedside Blood Glucose 117 mg/dl 07/12/17 0949 Bedside Blood Glucose 117 mg/dl 07/12/17 0650 TANVIR HARRISON Jul 13, 2017 06:23
[2017-07-13] MEDS: NovoLOG Insulin Flexpen SUBQ SCH ×4 (06:30→12:03)
[2017-07-13] MEDS: sitaGLIPtin 50mg tab ORAL SCH (06:42)
[2017-07-13 08:00] VITALS: BP 113/42
--- NOTE | 2017-07-13 08:28 | Cardiology Report ---
APPROVED REPORT EXAM: Two-dimensional and M-mode echocardiogram with Doppler and color Doppler. INDICATION Abnormal ECG M-Mode DIMENSIONS IVSd1.4 (0.7-1.1cm)Left Atrium (MM)3.2 (1.6-4.0cm) LVDd3.2 (3.5-5.6cm)Aortic Root3.3 (2.0-3.7cm) PWd1.5 (0.7-1.1cm)Aortic Cusp Exc.1.8 (1.5-2.0cm) IVSs1.7 cm LVDs2.2 (2.5-4.0cm) PWs1.4 cm Normal left ventricular chamber size. Left ventricular posterior wall hypokinesis . Left ventricular ejection fraction estimated to be 50-55 %. Mild left ventricular hypertrophy by 2-D. No evidence of pericardial effusion. All other cardiac chamber sizes are within normal limits. Focal aortic valve sclerosis with adequate cusp excursion. Heavily Thickened mitral valve leaflets with normal excursion. Heavily Mitral annulus and aortic root calcification. Pulmonic valve not well visualized. Normal tricuspid valve structure. IVC dilated at 2.4 cm without physiologic collapse suggestive of increased RA pressure. A color flow and spectral Doppler study was performed and revealed: Mild aortic regurgitation. Mild mitral regurgitation. Mitral diastolic velocities suggest reduced left ventricular relaxation c/w mild LV diastolic dysfunction (Grade I ). Trace tricuspid regurgitation. Tricuspid systolic velocities suggests peak right ventricular systolic pressure of 33 mmHg,consistent with mild pulmonary hypertension. No Pulmonic regurgitation present.
[2017-07-13] MEDS: Metoprolol Tartrate 12.5mg TAB ORAL SCH (08:56)
[2017-07-13] MEDS: Aspirin Baby 81mg ORAL SCH (08:56)
[2017-07-13] MEDS: Vitamin D 1000 IU Tab ORAL SCH (08:56)
[2017-07-13] MEDS: Levemir Flexpen SUBQ SCH (09:03)
[2017-07-13] MEDS: Eliquis 2.5mg tablet ORAL SCH (09:13)
--- NOTE | 2017-07-13 09:36 | Pulmonology Progress Note ---
Assessment/Plan Assessment/Plan 1. Pulmonary edema. 2. Chronic kidney disease. 3. Chronic obstructive pulmonary disease. DISCUSSION: Continue medications. She may benefit from dialysis, however, will defer to her primary physician. At this time, she may be back to her baseline. Continue ceftriaxone, which is appropriate empiric therapy for suspected bronchitis. Subjective Interval Events: Feeling better Constitutional: Reports: no symptoms HEENT: Repors: no symptoms Respiratory: Reports: no symptoms Cardiovascular: Reports: no symptoms Gastrointestinal/Abdominal: Reports: no symptoms Genitourinary: Reports: no symptoms Allergies: Coded Allergies: No Known Allergies (Unverified , 07/08/17) Objective Last 24 Hour Vital Signs Date Time Temp Pulse Resp B/P (MAP) Pulse Ox O2 Delivery O2 Flow Rate FiO2 07/13/17 08:56 82 113/42 07/13/17 07:13 Nasal Cannula 2.0 28 07/13/17 07:06 67 18 98 Nasal Cannula 2.0 28 07/13/17 06:55 65 18 94 Nasal Cannula 2.0 28 07/13/17 06:50 94 Nasal Cannula 2.0 28 07/13/17 04:00 71 07/13/17 04:00 97.7 67 18 116/58 96 Nasal Cannula 3.0 97.7 07/13/17 01:20 Nasal Cannula 2.0 28 07/13/17 01:20 Nasal Cannula 2.0 28 07/13/17 00:00 97.9 78 19 121/73 94 Nasal Cannula 3.0 97.9 07/13/17 00:00 74 07/12/17 20:47 75 122/51 07/12/17 20:00 86 07/12/17 20:00 98.2 75 20 122/51 99 Room Air 98.2 07/12/17 19:47 68 18 97 Nasal Cannula 2.0 28 07/12/17 19:37 64 18 94 Nasal Cannula 2.0 28 07/12/17 19:37 Nasal Cannula 2.0 28 07/12/17 19:37 94 Nasal Cannula 2.0 28 07/12/17 16:00 100 07/12/17 16:00 97.9 83 17 101/42 91 Nasal Cannula 3.0 97.9 07/12/17 13:29 64 20 94 Nasal Cannula 2.0 28 07/12/17 13:20 60 20 90 Nasal Cannula 2.0 28 07/12/17 13:00 100/49 07/12/17 12:00 76 07/12/17 12:00 98.1 80 18 119/49 91 Nasal Cannula 3.0 98.1 Intake and Output 07/12/17 07/13/17 19:00 07:00 Intake Total 556 ml 230 ml Output Total 200 ml 500 ml Balance 356 ml -270 ml Intake Oral 556 ml 120 ml IV Total 110 ml Output Urine Total 200 ml 500 ml General Appearance: no acute distress HEENT: normocephalic Respiratory/Chest: chest wall non-tender, lungs clear Cardiovascular: normal peripheral pulses, normal rate Laboratory Tests 07/12/17 13:30: White Blood Count 10.8, Red Blood Count 3.29L, Hemoglobin 10.5L, Hematocrit 32.0L, Mean Corpuscular Volume 97, Mean Corpuscular Hemoglobin 32.0H, Mean Corpuscular Hemoglobin Concent 32.9, Red Cell Distribution Width 13.1, Platelet Count 166, Mean Platelet Volume 7.3, Neutrophils (%) (Auto) , Lymphocytes (%) ( Auto) , Monocytes (%) (Auto) , Eosinophils (%) (Auto) , Basophils (%) (Auto) , Differential Total Cells Counted 100, Neutrophils % (Manual) 89H, Lymphocytes % (Manual) 6L, Monocytes % (Manual) 4, Eosinophils % (Manual) 1, Basophils % ( Manual) 0, Band Neutrophils 0, Platelet Estimate Adequate, Platelet Morphology Normal, Anisocytosis 1+, Sodium Level 145, Potassium Level 3.8, Chloride Level 103, Carbon Dioxide Level 37H, Anion Gap 5, Blood Urea Nitrogen 61H, Creatinine 2.4H, Estimat Glomerular Filtration Rate , Glucose Level 149H, Calcium Level 9.1 Current Medications Medications (Trade) Dose Ordered Sig/Jennifer Route PRN Reason Start Time Stop Time Status Last Admin Dose Admin Acetaminophen (Tylenol) 650 mg Q6H PRN ORAL Mild Pain/Temp > 100.5 07/09/17 02:30 08/08/17 02:29 Albuterol/ Ipratropium (Albuterol/ Ipratropium) 3 ml Q4H PRN HHN Shortness of Breath 07/09/17 11:15 07/14/17 11:14 Albuterol/ Ipratropium (Albuterol/ Ipratropium) 3 ml Q6HRT HHN 07/09/17 13:00 07/14/17 12:59 07/13/17 07:05 Apixaban (Eliquis) 2.5 mg BID ORAL 07/09/17 09:00 08/08/17 08:59 07/13/17 09:13 Aspirin (ASA) 81 mg DAILY ORAL 07/09/17 09:00 08/08/17 08:59 07/13/17 08:56 Atorvastatin Calcium (Lipitor) 10 mg BEDTIME ORAL 07/09/17 21:00 08/08/17 20:59 07/12/17 20:47 Ceftriaxone Sodium 1 gm/ Dextrose 110 ml @ 220 mls/hr Q24H IVPB 07/09/17 20:00 07/16/17 19:59 07/12/17 20:46 Dextrose (Dextrose 50%) 25 ml STAT PRN IV Hypoglycemia 07/09/17 02:30 08/08/17 02:29 Dextrose (Dextrose 50%) 25 ml STAT PRN IV Hypoglycemia 07/12/17 06:30 08/11/17 06:29 Dextrose (Dextrose 50%) 50 ml STAT PRN IV Hypoglycemia 07/09/17 06:30 08/08/17 02:29 Dextrose (Dextrose 50%) 50 ml STAT PRN IV Hypoglycemia 07/12/17 06:30 08/11/17 06:29 Diphenhydramine HCl (Benadryl) 25 mg Q6H PRN ORAL Itching 07/09/17 02:30 08/08/17 02:29 Fluoxetine HCl (PROzac) 20 mg DAILY ORAL 07/10/17 12:00 08/09/17 11:59 07/13/17 08:56 Insulin Aspart (NovoLOG) BEFORE MEALS AND HS SUBQ 07/09/17 06:30 08/08/17 06:29 07/12/17 20:51 Insulin Aspart (NovoLOG) 4 units NOVOTIAC SUBQ 07/12/17 06:30 08/11/17 06:29 07/13/17 06:41 Insulin Detemir (Levemir) 8 units DAILY SUBQ 07/12/17 09:00 08/11/17 08:59 07/13/17 09:03 Lorazepam (Ativan) 1 mg Q4H PRN ORAL Agitation 07/10/17 11:00 07/17/17 10:59 Metoprolol Tartrate (Lopressor) 12.5 mg Q12HR ORAL 07/12/17 21:00 08/09/17 20:59 07/13/17 08:56 Ondansetron HCl (Zofran) 4 mg Q6H PRN IVP Nausea & Vomiting 07/09/17 02:30 08/08/17 02:29 Polyethylene Glycol (Miralax) 17 gm BEDTIME ORAL 07/09/17 21:00 08/08/17 20:59 07/12/17 20:47 Prednisone (predniSONE) 10 mg DAILY ORAL 07/09/17 09:00 08/08/17 08:59 07/13/17 08:56 Regadenoson (Lexiscan) 0.4 mg ONCE PRN IV . 07/13/17 14:00 07/13/17 23:59 Sitagliptin Phosphate (Januvia) 50 mg ACBREAKFAST ORAL 07/09/17 06:30 08/08/17 06:29 07/13/17 06:42 Tamsulosin HCl (Flomax) 0.4 mg BEDTIME ORAL 07/09/17 21:00 08/08/17 20:59 07/12/17 20:47 Tiotropium [place] (Spiriva Inhaler) 1 puff DAILY INH 07/09/17 09:00 08/08/17 08:59 07/13/17 07:05 Vitamin D (Vitamin D) 1,000 intlu DAILY ORAL 07/09/17 09:00 08/08/17 08:59 07/13/17 08:56 Rodolfo Medley MD Jul 13, 2017 09:36
[2017-07-13 09:57] LABS: BASOPHILS % (AUTO) 0.7 % (0.0-2.0); EOSINOPHILS % (AUTO) 3.4 % (0.0-3.0); HEMATOCRIT 33.1 % (37.0-47.0); HEMOGLOBIN 10.7 G/DL (12.0-16.0); LYMPHOCYTES % (AUTO) 11.1 % (20.0-45.0); MEAN CORPUSCULAR VOLUME 98 FL (80-99); MONOCYTES % (AUTO) 10.5 % (1.0-10.0); NEUTROPHILS % (AUTO) 74.3 % (45.0-75.0); PLATELET COUNT 167 K/UL (150-450); RED BLOOD COUNT 3.38 M/UL (4.20-5.40); WHITE BLOOD COUNT 11.1 K/UL (4.8-10.8)
--- NOTE | 2017-07-13 10:03 | Nephrology Progress Note ---
Assessment/Plan Problem List: (1) CKD (chronic kidney disease) (2) COPD on home O2 (3) Anemia in chronic kidney disease (4) Elevated troponin I level Assessment Renal failure- Know stage 3 CKD since Feb 2016- Cr lower after payne : 2.4 BP lower Diabetic Nephropathy Exacerbation COPD Anemia CHF ?UTI Plan adjust bp meds Can DC payne and discharge FU with Uro 24 H urine studies noted BP and BS control Echo and [place] results noted pulmonary support Cardiac support ASA , [place] Impression: 837 mL bladder volume. [place] catheter reportedly present, but the latter is not visible, catheter presumably malpositioned. Increased left renal echogenicity, consistent with medical renal disease Mild right hydronephrosis, possibly but not definitively related to the lack of bladder emptying Incidental finding bilateral renal cysts. Subjective ROS Limited/Unobtainable: No Objective Objective Last 24 Hour Vital Signs Date Time Temp Pulse Resp B/P (MAP) Pulse Ox O2 Delivery O2 Flow Rate FiO2 07/13/17 08:56 82 113/42 07/13/17 07:13 Nasal Cannula 2.0 28 07/13/17 07:06 67 18 98 Nasal Cannula 2.0 28 07/13/17 06:55 65 18 94 Nasal Cannula 2.0 28 07/13/17 06:50 94 Nasal Cannula 2.0 28 07/13/17 04:00 71 07/13/17 04:00 97.7 67 18 116/58 96 Nasal Cannula 3.0 97.7 07/13/17 01:20 Nasal Cannula 2.0 28 07/13/17 01:20 Nasal Cannula 2.0 28 07/13/17 00:00 97.9 78 19 121/73 94 Nasal Cannula 3.0 97.9 07/13/17 00:00 74 07/12/17 20:47 75 122/51 07/12/17 20:00 86 07/12/17 20:00 98.2 75 20 122/51 99 Room Air 98.2 07/12/17 19:47 68 18 97 Nasal Cannula 2.0 28 07/12/17 19:37 64 18 94 Nasal Cannula 2.0 28 07/12/17 19:37 Nasal Cannula 2.0 28 07/12/17 19:37 94 Nasal Cannula 2.0 28 07/12/17 16:00 100 07/12/17 16:00 97.9 83 17 101/42 91 Nasal Cannula 3.0 97.9 07/12/17 13:29 64 20 94 Nasal Cannula 2.0 28 07/12/17 13:20 60 20 90 Nasal Cannula 2.0 28 07/12/17 13:00 100/49 07/12/17 12:00 76 07/12/17 12:00 98.1 80 18 119/49 91 Nasal Cannula 3.0 98.1 Intake and Output 07/12/17 07/13/17 19:00 07:00 Intake Total 556 ml 230 ml Output Total 200 ml 500 ml Balance 356 ml -270 ml Intake Oral 556 ml 120 ml IV Total 110 ml Output Urine Total 200 ml 500 ml Laboratory Tests 07/12/17 13:30: White Blood Count 10.8, Red Blood Count 3.29L, Hemoglobin 10.5L, Hematocrit 32.0L, Mean Corpuscular Volume 97, Mean Corpuscular Hemoglobin 32.0H, Mean Corpuscular Hemoglobin Concent 32.9, Red Cell Distribution Width 13.1, Platelet Count 166, Mean Platelet Volume 7.3, Neutrophils (%) (Auto) , Lymphocytes (%) ( Auto) , Monocytes (%) (Auto) , Eosinophils (%) (Auto) , Basophils (%) (Auto) , Differential Total Cells Counted 100, Neutrophils % (Manual) 89H, Lymphocytes % (Manual) 6L, Monocytes % (Manual) 4, Eosinophils % (Manual) 1, Basophils % ( Manual) 0, Band Neutrophils 0, Platelet Estimate Adequate, Platelet Morphology Normal, Anisocytosis 1+, Sodium Level 145, Potassium Level 3.8, Chloride Level 103, Carbon Dioxide Level 37H, Anion Gap 5, Blood Urea Nitrogen 61H, Creatinine 2.4H, Estimat Glomerular Filtration Rate , Glucose Level 149H, Calcium Level 9.1 07/13/17 09:30: White Blood Count 11.1H, Red Blood Count 3.38L, Hemoglobin 10.7L, Hematocrit 33.1L, Mean Corpuscular Volume 98, Mean Corpuscular Hemoglobin 31.7H, Mean Corpuscular Hemoglobin Concent 32.3, Red Cell Distribution Width 13.0, Platelet Count 167, Mean Platelet Volume 7.4, Neutrophils (%) (Auto) 74.3, Lymphocytes (% ) (Auto) 11.1L, Monocytes (%) (Auto) 10.5H, Eosinophils (%) (Auto) 3.4H, Basophils (%) (Auto) 0.7, Sodium Level [Pending], Potassium Level [Pending], Chloride Level [Pending], Carbon Dioxide Level [Pending], Blood Urea Nitrogen [ Pending], Creatinine [Pending], Estimat Glomerular Filtration Rate [Pending], Glucose Level [Pending], Calcium Level [Pending], Magnesium Level [Pending] Height (Feet): 5 Height (Inches): 2.00 Weight (Pounds): 177 General Appearance: no apparent distress Cardiovascular: normal rate Respiratory/Chest: decreased breath sounds Abdomen: soft Extremities: trace edema LISETH HERNANDEZ Jul 13, 2017 10:03
[2017-07-13 10:07] LABS: ANION GAP 4 mmol/L (5-15); BLOOD UREA NITROGEN 59 mg/dL (7-18); CALCIUM 9.2 MG/DL (8.5-10.1); CARBON DIOXIDE 36 MMOL/L (21-32); CHLORIDE 104 MMOL/L (98-107); CREATININE 2.3 MG/DL (0.55-1.30); POTASSIUM 3.6 MMOL/L (3.5-5.1); SODIUM 144 MMOL/L (136-145)
[2017-07-13 12:00] VITALS: BP 114/30
--- NOTE | 2017-07-13 13:27 | Cardiac Electrophysiology PN ---
Assessment/Plan Assessment/Plan 1. Troponin leak 0.1 and 0.1 and 2.2, 0.77 and 0.8. Likely due to renal failure with a creatinine of 3.3. The patient does not have any chest pain. EKG showed nonspecific ST-T wave abnormalities. Echocardiogram showed Nl EF. Continue aspirin, metoprolol 12.5 mg b.i.d and Lipitor. Refused stress test 2. Hypertension. On Lasix 40 mg po daily and metoprolol 12.5 mg b.i.d. 3. Diabetes. On insulin. 4. Lower extremity edema. Lower extremity duplex no DVT. Continue Lasix 40 daily. 5. Renal failure. Creatinine was more than 3. Today is 2.3 6. 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 7. Psych Follow up Dr Kofi CUNNINGHAM RN and DPOA Subjective Subjective No chest pain or SOB. POA at bedside and both want to go home. Objective Last 24 Hour Vital Signs Date Time Temp Pulse Resp B/P (MAP) Pulse Ox O2 Delivery O2 Flow Rate FiO2 07/13/17 12:00 97.3 73 18 114/30 93 Nasal Cannula 3.0 97.3 07/13/17 11:42 75 07/13/17 08:56 82 113/42 07/13/17 08:00 97.3 82 17 113/42 90 Nasal Cannula 3.0 97.3 07/13/17 08:00 81 07/13/17 07:13 Nasal Cannula 2.0 28 07/13/17 07:06 67 18 98 Nasal Cannula 2.0 28 07/13/17 06:55 65 18 94 Nasal Cannula 2.0 28 07/13/17 06:50 94 Nasal Cannula 2.0 28 07/13/17 04:00 71 07/13/17 04:00 97.7 67 18 116/58 96 Nasal Cannula 3.0 97.7 07/13/17 01:20 Nasal Cannula 2.0 28 07/13/17 01:20 Nasal Cannula 2.0 28 07/13/17 00:00 97.9 78 19 121/73 94 Nasal Cannula 3.0 97.9 07/13/17 00:00 74 07/12/17 20:47 75 122/51 07/12/17 20:00 86 07/12/17 20:00 98.2 75 20 122/51 99 Room Air 98.2 07/12/17 19:47 68 18 97 Nasal Cannula 2.0 28 07/12/17 19:37 64 18 94 Nasal Cannula 2.0 28 07/12/17 19:37 Nasal Cannula 2.0 28 07/12/17 19:37 94 Nasal Cannula 2.0 28 07/12/17 16:00 100 07/12/17 16:00 97.9 83 17 101/42 91 Nasal Cannula 3.0 97.9 07/12/17 13:29 64 20 94 Nasal Cannula 2.0 28 Intake and Output 07/12/17 07/13/17 19:00 07:00 Intake Total 556 ml 230 ml Output Total 200 ml 500 ml Balance 356 ml -270 ml Intake Oral 556 ml 120 ml IV Total 110 ml Output Urine Total 200 ml 500 ml Laboratory Tests Test 07/12/17 13:30 07/13/17 09:30 White Blood Count 10.8 K/UL (4.8-10.8) 11.1 K/UL (4.8-10.8) H Red Blood Count 3.29 M/UL (4.20-5.40) L 3.38 M/UL (4.20-5.40) L Hemoglobin 10.5 G/DL (12.0-16.0) L 10.7 G/DL (12.0-16.0) L Hematocrit 32.0 % (37.0-47.0) L 33.1 % (37.0-47.0) L Mean Corpuscular Volume 97 FL (80-99) 98 FL (80-99) Mean Corpuscular Hemoglobin 32.0 PG (27.0-31.0) H 31.7 PG (27.0-31.0) H Mean Corpuscular Hemoglobin Concent 32.9 G/DL (32.0-36.0) 32.3 G/DL (32.0-36.0) Red Cell Distribution Width 13.1 % (11.6-14.8) 13.0 % (11.6-14.8) Platelet Count 166 K/UL (150-450) 167 K/UL (150-450) Mean Platelet Volume 7.3 FL (6.5-10.1) 7.4 FL (6.5-10.1) Neutrophils (%) (Auto) % (45.0-75.0) 74.3 % (45.0-75.0) Lymphocytes (%) (Auto) % (20.0-45.0) 11.1 % (20.0-45.0) L Monocytes (%) (Auto) % (1.0-10.0) 10.5 % (1.0-10.0) H Eosinophils (%) (Auto) % (0.0-3.0) 3.4 % (0.0-3.0) H Basophils (%) (Auto) % (0.0-2.0) 0.7 % (0.0-2.0) Differential Total Cells Counted 100 Neutrophils % (Manual) 89 % (45-75) H Lymphocytes % (Manual) 6 % (20-45) L Monocytes % (Manual) 4 % (1-10) Eosinophils % (Manual) 1 % (0-3) Basophils % (Manual) 0 % (0-2) Band Neutrophils 0 % (0-8) Platelet Estimate Adequate Platelet Morphology Normal Anisocytosis 1+ Sodium Level 145 MMOL/L (136-145) 144 MMOL/L (136-145) Potassium Level 3.8 MMOL/L (3.5-5.1) 3.6 MMOL/L (3.5-5.1) Chloride Level 103 MMOL/L (98-107) 104 MMOL/L (98-107) Carbon Dioxide Level 37 MMOL/L (21-32) H 36 MMOL/L (21-32) H Anion Gap 5 mmol/L (5-15) 4 mmol/L (5-15) L Blood Urea Nitrogen 61 mg/dL (7-18) H 59 mg/dL (7-18) H Creatinine 2.4 MG/DL (0.55-1.30) H 2.3 MG/DL (0.55-1.30) H Estimat Glomerular Filtration Rate mL/min (>60) mL/min (>60) Glucose Level 149 MG/DL (74-106) H 86 MG/DL (74-106) Calcium Level 9.1 MG/DL (8.5-10.1) 9.2 MG/DL (8.5-10.1) Magnesium Level 2.6 MG/DL (1.8-2.4) H Objective HEAD AND NECK: No JVD. LUNGS: Clear. CARDIOVASCULAR: Regular S1 and S2 with no gallop or murmur. ABDOMEN: Soft. EXTREMITIES: Bilateral 2+ pitting edema. Srinivasa Sutton MD Jul 13, 2017 13:27
[2017-07-13] MEDS ORDERED: Lexiscan 0.4mg/5ml syringe IV PRN (14:00)
[2017-07-13] MEDS ORDERED: LOPRESSOR25 M1 ORAL (14:13)
[2017-07-13] MEDS ORDERED: KEFLEX250 M1 PO (14:34)
[2017-07-13] MEDS ORDERED: Tubing IV Secondary IV ONE (15:32)
--- NOTE | 2017-07-13 22:49 | General Progress Note ---
Assessment/Plan Assessment/Plan 1. Anemia due to underlying chronic disease, potentially secondary to hemodilution. --> Continue to closely monitor. --> Anemia workup completed and reviewed. --> Iron 55, TIBC 230, Ferritin 175, B12 1210, Folate 44, TSH 1.9 --> Blood transfusion not needed unless symptomatic or hemoglobin <7 --> H/H stable currently. 2. Leukocytosis, potentially secondary to reactive process versus underlying infection. --> Consider steroids as well. --> Monitor for improvement. 3. Pneumonia, is on broad-spectrum antibiotics. --> Continue to closely monitor. 4. Dehydration, currently receiving IV fluids as needed per primary team. 5. Troponin elevation, to be seen by Cardiology Service. --> Levels downtrending. 6. Acute kidney injury with creatinine of 3.3, to be seen by Dr. Asencio of Nephrology Service. We do not have the patient's baseline. --> Cr downtrending and improving. 7. Hypertension. 8. Chronic bilateral lower extremity DVT. On apixaban. --> Some edema noted. Subjective Date patient seen: Jul 13, 2017 Constitutional: Denies: no symptoms, chills, diaphoresis, fever, malaise, weakness, other HEENT: Denies: no symptoms, eye pain, blurred vision, tearing, double vision, ear pain, ear discharge, nose pain, nose congestion, throat pain, throat swelling, mouth pain, mouth swelling, other Cardiovascular: Denies: no symptoms, chest pain, edema, irregular heart rate, lightheadedness, palpitations, syncope, other Respiratory: Denies: no symptoms, cough, orthopnea, shortness of breath, SOB with excertion, SOB at rest, sputum, stridor, wheezing, other Gastrointestinal/Abdominal: Denies: no symptoms, abdomen distended, abdominal pain, black stools, tarry stools, blood in stool, constipated, diarrhea, difficulty swallowing, nausea, poor appetite, poor fluid intake, rectal bleeding , vomiting, other Genitourinary: Denies: no symptoms, burning, discharge, frequency, flank pain, hematuria, incontinence, pain, urgency, other Neurologic/Psychiatric: Denies: no symptoms, anxiety, depressed, emotional problems, headache, numbness, paresthesia, pre-existing deficit, seizure, tingling, tremors, weakness, other Hematologic/Lymphatic: Reports: anemia Allergies: Coded Allergies: No Known Allergies (Unverified , 07/08/17) Subjective Edema improved. No acute events. Pending discharge today. Objective Last 24 Hour Vital Signs Date Time Temp Pulse Resp B/P (MAP) Pulse Ox O2 Delivery O2 Flow Rate FiO2 07/13/17 13:51 66 20 Nasal Cannula 2.0 28 07/13/17 13:40 63 18 Nasal Cannula 2.0 28 07/13/17 12:00 97.3 73 18 114/30 93 Nasal Cannula 3.0 97.3 07/13/17 11:42 75 07/13/17 08:56 82 113/42 07/13/17 08:00 97.3 82 17 113/42 90 Nasal Cannula 3.0 97.3 07/13/17 08:00 81 07/13/17 07:13 Nasal Cannula 2.0 28 07/13/17 07:06 67 18 98 Nasal Cannula 2.0 28 07/13/17 06:55 65 18 94 Nasal Cannula 2.0 28 07/13/17 06:50 94 Nasal Cannula 2.0 28 07/13/17 04:00 71 07/13/17 04:00 97.7 67 18 116/58 96 Nasal Cannula 3.0 97.7 07/13/17 01:20 Nasal Cannula 2.0 28 07/13/17 01:20 Nasal Cannula 2.0 28 07/13/17 00:00 97.9 78 19 121/73 94 Nasal Cannula 3.0 97.9 07/13/17 00:00 74 Intake and Output 07/12/17 07/13/17 19:00 07:00 Intake Total 556 ml 230 ml Output Total 200 ml 500 ml Balance 356 ml -270 ml Intake Oral 556 ml 120 ml IV Total 110 ml Output Urine Total 200 ml 500 ml Laboratory Tests 07/13/17 09:30: White Blood Count 11.1H, Red Blood Count 3.38L, Hemoglobin 10.7L, Hematocrit 33.1L, Mean Corpuscular Volume 98, Mean Corpuscular Hemoglobin 31.7H, Mean Corpuscular Hemoglobin Concent 32.3, Red Cell Distribution Width 13.0, Platelet Count 167, Mean Platelet Volume 7.4, Neutrophils (%) (Auto) 74.3, Lymphocytes (% ) (Auto) 11.1L, Monocytes (%) (Auto) 10.5H, Eosinophils (%) (Auto) 3.4H, Basophils (%) (Auto) 0.7, Sodium Level 144, Potassium Level 3.6, Chloride Level 104, Carbon Dioxide Level 36H, Anion Gap 4L, Blood Urea Nitrogen 59H, Creatinine 2.3H, Estimat Glomerular Filtration Rate , Glucose Level 86, Calcium Level 9.2, Magnesium Level 2.6H Height (Feet): 5 Height (Inches): 2.00 Weight (Pounds): 177 General Appearance: no apparent distress Neck: normal alignment Cardiovascular: normal rate, regular rhythm Respiratory/Chest: lungs clear, normal breath sounds Abdomen: soft GEORGE TUCKER Jul 13, 2017 22:49
--- NOTE | 2017-07-14 | General Progress Note ---
Assessment/Plan Assessment/Plan mdd anxiety prozac 20mg qam ativan prn Subjective Date patient seen: Jul 12, 2017 Allergies: Coded Allergies: No Known Allergies (Unverified , 07/08/17) Subjective the pt wearing her sun glasses and scrarf again, the pt is anxious and refused iv access. Objective Last 24 Hour Vital Signs Date Time Temp Pulse Resp B/P (MAP) Pulse Ox O2 Delivery O2 Flow Rate FiO2 07/13/17 13:51 66 20 Nasal Cannula 2.0 28 07/13/17 13:40 63 18 Nasal Cannula 2.0 28 07/13/17 12:00 97.3 73 18 114/30 93 Nasal Cannula 3.0 97.3 07/13/17 11:42 75 07/13/17 08:56 82 113/42 07/13/17 08:00 97.3 82 17 113/42 90 Nasal Cannula 3.0 97.3 07/13/17 08:00 81 07/13/17 07:13 Nasal Cannula 2.0 28 07/13/17 07:06 67 18 98 Nasal Cannula 2.0 28 07/13/17 06:55 65 18 94 Nasal Cannula 2.0 28 07/13/17 06:50 94 Nasal Cannula 2.0 28 07/13/17 04:00 71 07/13/17 04:00 97.7 67 18 116/58 96 Nasal Cannula 3.0 97.7 07/13/17 01:20 Nasal Cannula 2.0 28 07/13/17 01:20 Nasal Cannula 2.0 28 Intake and Output 07/13/17 07/14/17 19:00 07:00 Intake Total 232 ml Output Total 400 ml Balance -168 ml Intake Oral 232 ml Output Urine Total 400 ml Laboratory Tests 07/13/17 09:30: White Blood Count 11.1H, Red Blood Count 3.38L, Hemoglobin 10.7L, Hematocrit 33.1L, Mean Corpuscular Volume 98, Mean Corpuscular Hemoglobin 31.7H, Mean Corpuscular Hemoglobin Concent 32.3, Red Cell Distribution Width 13.0, Platelet Count 167, Mean Platelet Volume 7.4, Neutrophils (%) (Auto) 74.3, Lymphocytes (% ) (Auto) 11.1L, Monocytes (%) (Auto) 10.5H, Eosinophils (%) (Auto) 3.4H, Basophils (%) (Auto) 0.7, Sodium Level 144, Potassium Level 3.6, Chloride Level 104, Carbon Dioxide Level 36H, Anion Gap 4L, Blood Urea Nitrogen 59H, Creatinine 2.3H, Estimat Glomerular Filtration Rate , Glucose Level 86, Calcium Level 9.2, Magnesium Level 2.6H Height (Feet): 5 Height (Inches): 2.00 Weight (Pounds): 177 Ricci Kirby M.D. Jul 14, 2017 00:00
--- NOTE | 2017-07-14 | Psych Consult Progress Note ---
Psych Consult Progress Note Consult 07/11/17 Vital Signs Last 24 Hour Vital Signs Date Time Temp Pulse Resp B/P (MAP) Pulse Ox O2 Delivery O2 Flow Rate FiO2 07/13/17 13:51 66 20 Nasal Cannula 2.0 28 07/13/17 13:40 63 18 Nasal Cannula 2.0 28 07/13/17 12:00 97.3 73 18 114/30 93 Nasal Cannula 3.0 97.3 07/13/17 11:42 75 07/13/17 08:56 82 113/42 07/13/17 08:00 97.3 82 17 113/42 90 Nasal Cannula 3.0 97.3 07/13/17 08:00 81 07/13/17 07:13 Nasal Cannula 2.0 28 07/13/17 07:06 67 18 98 Nasal Cannula 2.0 28 07/13/17 06:55 65 18 94 Nasal Cannula 2.0 28 07/13/17 06:50 94 Nasal Cannula 2.0 28 07/13/17 04:00 71 07/13/17 04:00 97.7 67 18 116/58 96 Nasal Cannula 3.0 97.7 07/13/17 01:20 Nasal Cannula 2.0 28 07/13/17 01:20 Nasal Cannula 2.0 28 Labs Laboratory Tests Test 07/13/17 09:30 White Blood Count 11.1 K/UL (4.8-10.8) H Red Blood Count 3.38 M/UL (4.20-5.40) L Hemoglobin 10.7 G/DL (12.0-16.0) L Hematocrit 33.1 % (37.0-47.0) L Mean Corpuscular Volume 98 FL (80-99) Mean Corpuscular Hemoglobin 31.7 PG (27.0-31.0) H Mean Corpuscular Hemoglobin Concent 32.3 G/DL (32.0-36.0) Red Cell Distribution Width 13.0 % (11.6-14.8) Platelet Count 167 K/UL (150-450) Mean Platelet Volume 7.4 FL (6.5-10.1) Neutrophils (%) (Auto) 74.3 % (45.0-75.0) Lymphocytes (%) (Auto) 11.1 % (20.0-45.0) L Monocytes (%) (Auto) 10.5 % (1.0-10.0) H Eosinophils (%) (Auto) 3.4 % (0.0-3.0) H Basophils (%) (Auto) 0.7 % (0.0-2.0) Sodium Level 144 MMOL/L (136-145) Potassium Level 3.6 MMOL/L (3.5-5.1) Chloride Level 104 MMOL/L (98-107) Carbon Dioxide Level 36 MMOL/L (21-32) H Anion Gap 4 mmol/L (5-15) L Blood Urea Nitrogen 59 mg/dL (7-18) H Creatinine 2.3 MG/DL (0.55-1.30) H Estimat Glomerular Filtration Rate mL/min (>60) Glucose Level 86 MG/DL (74-106) Calcium Level 9.2 MG/DL (8.5-10.1) Magnesium Level 2.6 MG/DL (1.8-2.4) H Problems: (1) Generalized weakness (2) lives at home with caregiver (3) COPD on home O2 Ricci Kirby M.D. Jul 14, 2017 00:00
--- NOTE | 2017-07-16 21:02 | Cardiology Report ---
APPROVED REPORT EKG Measurement Heart [id number] Sinus rhythm with occasional and with occasional premature ventricular complexes Inferior infarct, age undetermined Abnormal ECG
--- NOTE | 2017-07-16 21:04 | Cardiology Report ---
APPROVED REPORT EKG Measurement Heart [id number] IL 156P [id number] Sinus rhythm with marked sinus arrhythmia with occasional premature ventricular complexes Left axis deviation Inferior infarct, age undetermined Cannot rule out Anterior infarct, age undetermined T wave abnormality, consider lateral ischemia Abnormal ECG
--- NOTE | 2017-07-17 00:12 | Diagnostic Imaging Report ---
APPROVED REPORT CPT Code: 49996 Present Symptoms Comments: BILATERAL LEGS PAIN. RIGHT LEG: Venous imaging reveals a patent deep venous system. There is no evidence of thrombus within the femoral, popliteal or tibial segments. The greater saphenous vein is also within normal limits. Doppler indicates normal spontaneous flow within these segments. LEFT LEG: Venous imaging reveals chronic thrombus in the common femoral vein to superficial femora vein. Imaging also reveals patency of the popliteal and calf veins. The greater saphenous vein is also within normal limits. Doppler indicates normal spontaneous flow within these segments.
--- NOTE | 2017-07-17 15:12 | Discharge Summary ---
Discharge Summary Hospital Course Date of Admission Jul 08, 2017 at 23:15 Date of Discharge Jul 13, 2017 at 15:33 Admitting Diagnosis generalized weakness, JUDSON Reason for Hospitalization: generalized weakness, JUDSON HPI 82y/o female with pmh of CAD, CHF, HTN, COPD on home O2 (2L via NC), IDDM type 2 , CKD stage 3, h/o DVT (on Eliquis) who presents with generalized weakness and swelling. Pt poor historian. Per caregiver, pt has a decline the past 3 weeks. Pt w/ worsening BLE swelling for the past 2-3 weeks. PCP recently switched from lasix to torsemide abt 2 weeks ago. 1 week ago torsemide dose was increased from 20mg to 40mg daily. Pt also noted to be taking in more fluids than she should given her CHF for the past week. However, lately she has had poor food intake 2/2 poor appetite. Per caregiver, swelling is attributed to Novolog solution?, so her doctors have been attempting to adjust her diabetic medications. She was started on Treciba. Denies f/c, n/v, d/c, chest pain, abd pain, cough. SOB is stable, O2 requirements stable at 2L NC. Yesterday, pt was being transferred to car and it was noted that she had no energy so paramedics were called. Consultations Cardiology, Nephrology, Pulmonology, Endocrinology Hospital Course Pt was admitted and seen by renal. She was continued on lasix 40mg IV daily. She was noted to have urinary retention and payne catheter placed. Her serum creatinine improved and returned to baseline. She was treated with empiric ceftriaxone for possible UTI and bronchitis, and transition to keflex to complete course on d/c. Prior to d/c, pt wished to keep payne in rather than do voiding trial. Risks discussed. Pt to followup with urology as outpatient for voiding trial. Pt also with elevated troponin and was seen by cardiology. Troponin downtrended. Trop alex likely in setting of renal insufficient. Nuclear stress test recommended per cards but patient and DPOA refusing. TTE showed normal EF. Pt was seen and examined on day of discharge. She was HD stable, tolerating PO and ambulating w/ FWW. Discharge physical exam General: alert, cooperative, no distress, appears stated age Head: normocephalic, without obvious abnormality, atraumatic Eyes: conjunctivae/corneas clear. PERRL, EOM's intact Throat: lips, mucosa, and tongue normal. MMM Neck: supple, symmetrical, trachea midline, and no JVD Lungs: +mild wheezing b/l Heart: regular rate and rhythm, S1, S2 normal, no murmur, click, rub or gallop Abdomen: soft, non-tender, non-distended, bowel sounds normal Extremities: extremities normal, atraumatic, no cyanosis, 1-2+ BLE edema Pulses: 2+ and symmetric Skin: skin color, texture, turgor normal; no rashes or lesions Neurologic: grossly normal, no focal deficits Discharge diagnoses: Elevated troponin I level Acute on chronic diastolic heart failure H/O deep venous thrombosis JUDSON on CKD stage 3 Anemia in chronic kidney disease Diabetic nephropathy Urinary retention requiring payne-catheter Uncontrolled insulin-dependent DM2 (diabetes mellitus, type 2) Chronic hypoxic respiratory failure COPD Bronchitis UTI Discharge Medications New Medications: Cephalexin (Keflex) 250 Mg Capsule 250 MG PO Q12HR for 3 Days, #6 CAP Continued Medications: Albuterol Sulfate* (Albuterol Sulfate Hhn*) 2.5 Mg/3 Ml Vial.neb 3 ML INH Q4H PRN for Shortness of Breath, EA (This prescription has been renewed ) Apixaban (Eliquis) 2.5 Mg Tablet 2.5 MG PO, TAB (This prescription has been renewed) Fluticasone/Vilanterol (Breo Ellipta 100-25 Mcg INH) 1 Each Blst.w.dev 1 EACH IH, EACH (This prescription has been renewed) Folic Acid* (Folic Acid*) 1 Mg Tablet 1 MG ORAL DAILY, TAB (This prescription has been renewed) Insulin Degludec (Tresiba Flextouch U-100) 100 Unit/1 Ml Insuln.pen 100 UNIT SQ, EA (This prescription has been renewed) Insulin Lispro (Humalog) 100 Unit/1 Ml Cartridge 0 SUBQ, #1 UNITS 0 Refills (This prescription has been renewed) Prednisolone* (Prelone*) 15 Mg/5 Ml Solution 10 MG ORAL, ML (This prescription has been renewed) Rosuvastatin Calcium* (Crestor*) 20 Mg Tablet 20 MG ORAL DAILY, TAB (This prescription has been renewed) Sitagliptin* (Januvia*) 25 Mg Tablet 50 MG ORAL DAILY, TAB (This prescription has been renewed) Tamsulosin Hcl (Tamsulosin Hcl*) 0.4 Mg Cap.er.24h 0.4 MG ORAL BEDTIME, CAP (This prescription has been renewed) Tiotropium [place]* (Spiriva*) 18 Mcg Cap.w.dev 1 PUFF INH DAILY, EA (This prescription has been renewed) Torsemide* (Demadex*) 20 Mg Tablet 20 MG ORAL DAILY, TAB 0 Refills (This prescription has been renewed) Discharge Condition Upon Discharge: stable Discharge Disposition Patient was discharged to Home with Home Health(06) Bravo Leroy M.D. Jul 17, 2017 15:12
== END 2017-07-13 15:33 | disposition home health service (06) | DRG 291 ==
LOC: EDBD 20:27 → EMR 22:53 → 2E 23:15 → EDBEDREQ 23:58 → EDBEDREQDT 07-09 00:26 → EDBEDREQSVC 07-09 00:26 → EDBEDREQTM 07-09 00:26 → EDBEDREQ 07-09 00:44
DX: I13.0 Hypertensive heart and chronic kidney disease with heart failure and stage 1 through stage 4 chronic kidney disease, or unspecified chronic kidney disease (principal); I50.33 Acute on chronic diastolic (congestive) heart failure; J18.9 Pneumonia, unspecified organism; N17.9 Acute kidney failure, unspecified; J96.11 Chronic respiratory failure with hypoxia; N39.0 Urinary tract infection, site not specified; I82.509 Chronic embolism and thrombosis of unspecified deep veins of unspecified lower extremity; J44.1 Chronic obstructive pulmonary disease with (acute) exacerbation; E11.22 Type 2 diabetes mellitus with diabetic chronic kidney disease; N18.3 Chronic kidney disease, stage 3 (moderate); D63.1 Anemia in chronic kidney disease; J40 Bronchitis, not specified as acute or chronic; I25.10 Atherosclerotic heart disease of native coronary artery without angina pectoris; Z86.718 Personal history of other venous thrombosis and embolism; E86.0 Dehydration; Z79.01 Long term (current) use of anticoagulants; E11.65 Type 2 diabetes mellitus with hyperglycemia
CPT/HCPCS: 36415; 71045; 76770; 80048; 80053; 80061; 81003; 81050; 82270; 82550; 82575; 82607; 82728; 82746; 82962; 82977; 83036; 83540; 83550; 83605; 83615; 83735; 83880; 84100; 84156; 84443; 84484; 84550; 85007; 85025; 85060; 85384; 85610; 86140; 86710; 87040; 93005; 93306; 93970; 94640; 94664; 94760; 99285; J1815; J7620; J8499; S5561